=== PATIENT | female | born 1935 | race Caucasian/White ===

== ENCOUNTER 2016-12-23 08:10 | Outpatient (CLI) | payer MEDICARE, OTHER | END 2016-12-23 08:11 | disposition home or self-care (01) | LOC: LAB.F 08:10 | PROVIDERS: ATTEND Family Medicine | DX: E03.9 Hypothyroidism, unspecified (principal) | CPT/HCPCS: 36415; 84443 ==

== ENCOUNTER 2017-11-12 18:33 | Outpatient (CLI) | payer MEDICARE, OTHER ==
[2017-11-13] MEDS ORDERED: LORazepam 2 MG/ML VIAL ONE (09:24)
== END 2017-11-12 18:34 | disposition critical access hospital (66) ==
LOC: EMS 18:33
PROVIDERS: ATTEND Surgery
DX: S01.01XA Laceration without foreign body of scalp, initial encounter (principal); M25.551 Pain in right hip; W18.30XA Fall on same level, unspecified, initial encounter; Y92.008 Other place in unspecified non-institutional (private) residence as the place of occurrence of the external cause
CPT/HCPCS: A0425; A0427

== ENCOUNTER 2017-11-12 19:20 | Inpatient (IN) | payer MEDICARE, OTHER ==
[2017-11-12] MEDS ORDERED: MORPHINE 2 MG/ML SYRINGE IVP STA (19:52)
[2017-11-12 20:10] LABS: BASOPHILS # (AUTO) 0.1 10^3/uL (0.0-0.1); EOSINOPHILS # (AUTO) 0.1 10^3/uL (0.0-0.7); EOSINOPHILS % (AUTO) 1.5 %; HGB - HEMOGLOBIN 14.7 g/dL (12.0-16.0); LYMPHOCYTES # (AUTO) 1.1 10^3/uL (1.5-3.5); LYMPHOCYTES % (AUTO) 12.7 %; MEAN CORPUSCULAR HEMOGLOBIN 27.9 pg (27.0-31.0); MEAN CORPUSCULAR HGB CONC 32.5 g/dL (32.0-36.0); MEAN CORPUSCULAR VOLUME 85.7 fL (81.0-99.0); MEAN PLATELET VOLUME 8.3 fL (7.9-10.8); MONOCYTES # (AUTO) 0.6 10^3/uL (0.0-1.0); MONOCYTES % (AUTO) 7.7 %; NEUTROPHILS # (AUTO) 6.5 10^3/uL (1.5-6.6); NEUTROPHILS % (AUTO) 77.1 %; PLT - PLATELET COUNT 249 10^3/uL (130-450); RED BLOOD COUNT 5.26 10^6/uL (4.20-5.40); RED CELL DISTRIBUTION WIDTH 14.2 % (12.0-15.0); WHITE BLOOD COUNT 8.4 x10^3/uL (4.8-10.8)
[2017-11-12 20:17] LABS: PT - PROTHROMBIN TIME 11.8 secs (9.9-12.6)
[2017-11-12 20:24] LABS: ALBUMIN 4.3 g/dL (3.2-5.5); ALBUMIN/GLOBULIN RATIO 1.6 (1.0-2.2); BILIRUBIN,TOTAL 0.8 mg/dL (0.2-1.0); CALCIUM 8.6 mg/dL (8.5-10.3); CREATININE 0.6 mg/dL (0.4-1.0)
--- NOTE | 2017-11-12 20:25 | ED Physician Documentation ---
PD HPI Fall - Stated complaint Stated Complaint: RT HIP PAIN - Chief complaint Chief Complaint: Ext Problem - History obtained from History obtained from: Patient, EMS - History of Present Illness Mechanism of injury: Tripped Fall distance: Standing position Injury(ies) location: Head, Right Lower Extremity (hip and ankle) Pain level max: 7 Pain level now: 5 Quality of pain: Pain, Aching, Dull Associated symptoms: No: LOC, AMS, Amnesia, Seizures, Ear drainage, Nasal drainage, Neck pain, Weakness, Paresthesias, Dyspnea, Nausea / vomiting, Hematemesis, Abdominal distension Symptoms improve with: Rest Worsens with: Movement, Palpation Contributing factors: No: Anticoagulated, Intoxicated Similar symptoms before: Has not had sx before Recently seen: Not recently seen Review of Systems Ten Systems: 10 systems reviewed and negative Constitutional: denies: Fever, Chills Ears: denies: Ear pain Nose: denies: Rhinorrhea / runny nose, Congestion Throat: denies: Sore throat Cardiac: denies: Chest pain / pressure Respiratory: denies: Cough GI: denies: Abdominal Pain, Nausea, Vomiting, Diarrhea Skin: denies: Rash Musculoskeletal: denies: Neck pain, Back pain Neurologic: denies: Focal weakness, Numbness, Confused, Altered mental status, LOC PD PAST MEDICAL HISTORY - Past Medical History Cardiovascular: Hypertension Respiratory: None Endocrine/Autoimmune: HyPOthyroidism HEENT: Dental implants Musculoskeletal: Osteoarthritis, Osteoporosis, Osteopenia Derm: None - 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 Surgical 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 - Present Medications Home Medications: Ambulatory Orders Medication Instructions Recorded Confirmed Calcium & Magnesium Carbonate 1 tab PO DAILY 10/26/13 05/06/17 [Antacid Gelatin Caplet] Cholecalciferol (Vitamin D3) 1 tab PO DAILY 10/26/13 05/06/17 [Vitamin D-3] Levothyroxine [Synthroid] 0.1 mg PO DAILY 10/26/13 05/06/17 Losartan [Cozaar] 1 tab PO DAILY 10/26/13 05/06/17 Nebo-3 Fatty Acids/Fish Oil [Fish 1 tab PO DAILY 10/26/13 05/06/17 Oil 1,000 mg Capsule] Red Yeast Rice 1 tab PO DAILY 10/26/13 05/06/17 Vitamin B Complex Vit C No.4 1 tab ORAL DAILY 03/15/14 05/06/17 [Super B Complex] Lactobacillus Acidophilus 1 each PO DAILY 09/13/14 05/06/17 [Probiotic] Turmeric Root Extract [Turmeric] 1 tab PO DAILY 05/06/17 05/06/17 - Allergies Allergies/Adverse Reactions: Allergies Allergy/AdvReac Type Severity Reaction Status Date / Time Sulfa (Sulfonamide Allergy Edema Verified 11/12/17 20:00 Antibiotics) thimerosal Allergy Edema Verified 11/12/17 20:00 - Social History Does the pt smoke?: No Smoking Status: Never smoker Does the pt drink ETOH?: No Does the pt have substance abuse?: No - Immunizations Immunizations are current?: Yes PD ED PE NORMAL - Vitals Vital signs reviewed: Yes - General General: Alert and oriented X 3, No acute distress - HEENT HEENT: PERRL, Moist mucous membranes, Other (abrasion to crown of head) - Neck Neck: Supple, no meningeal sign, Other (mild C-spine TTP.) - Cardiac Cardiac: RRR, Strong equal pulses - Respiratory Respiratory: No respiratory distress, Clear bilaterally - Abdomen Abdomen: Soft, Non tender, Non distended - Back Back: No spinal TTP - Derm Derm: Warm and dry - Extremities Extremities: Other (TTP over the R hip. also diffusely tender about the R ankle. Mild swelling. NVI. o/w normal extremity exam of B LE and B UE) - Neuro Neuro: Alert and oriented X 3, client services director 2-12 intact, No motor deficit, No sensory deficit, Normal speech - Psych Psych: Normal mood, Normal affect Results - Vitals Vitals: Vital Signs - 24 hr 11/12/17 19:23 Temperature 36.8 C Heart Rate 52 L Respiratory 18 Rate Blood Pressure 150/99 H O2 Saturation 95 Oxygen O2 Source Room air - Labs Labs: Laboratory Tests 11/12/17 11/12/17 11/12/17 19:50 19:50 19:50 WBC 8.4 RBC 5.26 Hgb 14.7 Hct 45.0 MCV 85.7 MCH 27.9 MCHC 32.5 RDW 14.2 Plt Count 249 MPV 8.3 Neut # 6.5 Lymph # 1.1 L [place] # 0.6 Eos # 0.1 Baso # 0.1 Absolute Nucleated RBC 0.00 Nucleated RBC % 0.0 PT 11.8 INR 1.0 Sodium Potassium Chloride Carbon Dioxide Anion Gap BUN Creatinine Estimated GFR (MDRD) Glucose Calcium Total Bilirubin AST ALT Alkaline Phosphatase Troponin I Total Protein Albumin Globulin Albumin/Globulin Ratio Lipase Blood Type O POSITIVE Antibody Screen NEGATIVE 11/12/17 11/12/17 19:50 19:50 WBC RBC Hgb Hct MCV MCH MCHC RDW Plt Count MPV Neut # Lymph # [place] # Eos # Baso # Absolute Nucleated RBC Nucleated RBC % PT INR Sodium 136 Potassium 3.7 Chloride 102 Carbon Dioxide 26 Anion Gap 8.0 BUN 15 Creatinine 0.6 Estimated GFR (MDRD) 96 Glucose 103 H Calcium 8.6 Total Bilirubin 0.8 AST 26 ALT 20 Alkaline Phosphatase 60 Troponin I < 0.04 Total Protein 7.0 Albumin 4.3 Globulin 2.7 Albumin/Globulin Ratio 1.6 Lipase 29 Blood Type Antibody Screen - Rads (name of study) head CT Radiology: Prelim report reviewed, EMP read contemporaneously, See rad report ( Generalized age-related cortical atrophic changes without evidence of acute intracranial abnormality. 2. Moderate air-fluid level in the right maxillary sinus along with mild mucosal thickening. Increased density in the fluid, could be proteinaceous or blood. Acute on chronic right maxillary sinusitis to be present. 3. Right nasal alar bone fracture, mildly depressed, age- indeterminate. ) c-spine CT Radiology: Prelim report reviewed, EMP read contemporaneously, See rad report ( No evidence for acute fracture. 2. Degenerative changes as above. 3. Left upper lobe medial opacification measuring 0.9 x 1.5 cm, could represent a pulmonary nodule versus scarring versus infiltrate, not completely imaged. Further workup/ follow-up recommended. A dedicated chest CT could be obtained to further evaluate. Mild interlobular septal thickening in the bilateral lung apices, could represent mild pulmonary edema. ) R hip xray Radiology: Prelim report reviewed, EMP read contemporaneously, See rad report ( Mildly displaced and angulated intertrochanteric right femur fracture. ) R ankle xray Radiology: Prelim report reviewed, EMP read contemporaneously, See rad report ( No acute osseus abnormality. ) cxr Radiology: Prelim report reviewed, EMP read contemporaneously, See rad report ( Normal single-view chest. ) PD MEDICAL DECISION MAKING - ED course Complexity details: reviewed results, re-evaluated patient, considered differential, d/w patient, d/w executive consultant ED course: Patient is an 82-year-old female presents to the emergency department after a fall today. There is an abrasion to the crown of the head, there is no laceration. Wounds were cleansed and bandaged. She is found to have a right intertrochanteric hip fracture. Pain well controlled. Discussed the case with Dr. Fermin, orthopedics who will plan to take her to the operating room tomorrow. Also discussed with Dr. Means, hospitalist who accepts. This document was made in part using voice recognition software. While efforts are made to proofread this document, sound alike and grammatical errors may occur. Departure - Departure Disposition: [facility] DC/Xfer Clinical Impression: Intertrochanteric fracture of right hip Qualifiers: Encounter type: initial encounter Fracture type: closed Fracture alignment: displaced Qualified Code(s): S72.141A - Displaced intertrochanteric fracture of right femur, initial encounter for closed fracture Head injury Qualifiers: Encounter type: initial encounter Qualified Code(s): S09.90XA - Unspecified injury of head, initial encounter Abrasion head Qualifiers: Encounter type: initial encounter Qualified Code(s): S00.91XA - Abrasion of unspecified part of head, initial encounter Condition: Stable Discharge Date/Time: 11/12/17 22:14
[2017-11-12] MEDS ORDERED: MORPHINE 10 MG/ML VIAL IVP STA (20:34)
--- NOTE | 2017-11-12 20:42 | XRAY Preliminary Report ---
Exam: XR CHEST 1 VIEW X-RAY IMPRESSION: Normal single view chest. [facility] SITE ID: [id number]
--- NOTE | 2017-11-12 21:03 | XRAY Report ---
EXAM: CHEST RADIOGRAPHY EXAM DATE: 11/12/2017 08:33 PM. CLINICAL HISTORY: Fall, head injury, hip injury. COMPARISON: None. TECHNIQUE: 1 view. FINDINGS: Lungs/Pleura: No focal opacities evident. No pleural effusion. No pneumothorax. Mediastinum: Within exam limitations, the cardiomediastinal contour is normal. Other: None. IMPRESSION: Normal single-view chest. [facility] Referring Provider Line: [phone] SITE ID: [id number]
[2017-11-12] MEDS ORDERED: SODIUM CHLORIDE FLUSH 0.9% 10 ML SYRINGE IVP PRN (21:17)
[2017-11-12] MEDS ORDERED: oxyCODONE 5 MG TABLET PO PRN ×2 (21:17)
[2017-11-12] MEDS ORDERED: ACETAMINOPHEN 325 MG TABLET PO PRN (21:17)
[2017-11-12] MEDS ORDERED: ONDANSETRON 4 MG/2 ML VIAL IVP PRN (21:17)
[2017-11-12] MEDS ORDERED: PROCHLORPERAZINE 10 MG/2 ML VIAL IVP PRN (21:17)
--- NOTE | 2017-11-12 21:19 | XRAY Preliminary Report ---
Exam: XR ANKLE 3 VIEW RT IMPRESSION: No acute osseus abnormality. [facility] SITE ID: [id number]
--- NOTE | 2017-11-12 21:19 | XRAY Report ---
EXAM: RIGHT ANKLE RADIOGRAPHY EXAM DATE: 11/12/2017 09:09 PM. CLINICAL HISTORY: Fall, r ankle pain. COMPARISON: None. TECHNIQUE: 3 views. FINDINGS: Bones: No fracture or bone lesion. Joints: Normal. No effusion. No subluxations. The ankle mortise is normally aligned. Soft Tissues: Mild soft tissue swelling. IMPRESSION: No acute osseus abnormality. [facility] Referring Provider Line: [phone] SITE ID: [id number]
--- NOTE | 2017-11-12 21:21 | XRAY Report ---
EXAM: RIGHT HIP AND PELVIS RADIOGRAPHY EXAM DATE: 11/12/2017 09:10 PM. HISTORY: Fall, head inj, hip inj. COMPARISONS: None. TECHNIQUE: 1 view of the pelvis and 1 view of the hip. FINDINGS: Bones: Intertrochanteric right proximal femur fracture with mild displacement of the lesser trochante r and mild varus angulation. Joints: The bilateral hip, pubis symphysis, and sacroiliac joints are preserved. Soft Tissues: Mild soft tissue swelling. IMPRESSION: Mildly displaced and angulated intertrochanteric right femur fracture. [facility] Referring Provider Line: [phone] SITE ID: [id number]
--- NOTE | 2017-11-12 21:21 | XRAY Preliminary Report ---
Exam: XR HIP W/PELVIS 2-3V RT IMPRESSION: Mildly displaced and angulated intertrochanteric right femur fracture. [facility] SITE ID: [id number]
--- NOTE | 2017-11-12 21:40 | PROVIDER PROGRESS NOTE ---
Subjective - Prog Note Date Prog Note Date: 11/12/17 Prog Note Time: 21:38 - Subjective Pt reports feeling: Worse (Patient had a GLF today, sustaining a closed right IT hip fracture. No LOC or other injuries. No prior fracture) Objective - Vital Signs/Intake & Output Vital Signs: Vital Signs x48h Temp Pulse Resp BP Pulse Ox 11/12/17 21:35 59 L 17 128/63 96 11/12/17 19:23 36.8 C 52 L 18 150/99 H 95 - Lab Results Fish Bones: 11/12/17 19:50 11/12/17 19:50 Other Labs: Lab Results x24hrs 11/12/17 11/12/17 11/12/17 Range/Units 19:50 19:50 19:50 WBC (4.8-10.8) x10^3/uL RBC (4.20-5.40) 10^6/uL Hgb (12.0-16.0) g/dL Hct (37.0-47.0) % MCV (81.0-99.0) fL MCH (27.0-31.0) pg MCHC (32.0-36.0) g/dL RDW (12.0-15.0) % Plt Count (130-450) 10^3/uL MPV (7.9-10.8) fL Neut # (1.5-6.6) 10^3/uL Lymph # (1.5-3.5) 10^3/uL [place] # (0.0-1.0) 10^3/uL Eos # (0.0-0.7) 10^3/uL Baso # (0.0-0.1) 10^3/uL Absolute Nucleated RBC x10^3/uL Nucleated RBC % /100WBC PT 11.8 (9.9-12.6) secs INR 1.0 (0.8-1.2) Sodium 136 (135-145) mmol/L Potassium 3.7 (3.5-5.0) mmol/L Chloride 102 (101-111) mmol/L Carbon Dioxide 26 (21-32) mmol/L Anion Gap 8.0 (6-13) BUN 15 (6-20) mg/dL Creatinine 0.6 (0.4-1.0) mg/dL Estimated GFR (MDRD) 96 (>89) Glucose 103 H (70-100) mg/dL Calcium 8.6 (8.5-10.3) mg/dL Total Bilirubin 0.8 (0.2-1.0) mg/dL AST 26 (10-42) IU/L ALT 20 (10-60) IU/L Alkaline Phosphatase 60 (42-121) IU/L Troponin I < 0.04 (<0.49) ng/mL Total Protein 7.0 (6.7-8.2) g/dL Albumin 4.3 (3.2-5.5) g/dL Globulin 2.7 (2.1-4.2) g/dL Albumin/Globulin Ratio 1.6 (1.0-2.2) Lipase 29 (22-51) U/L Blood Type Antibody Screen 11/12/17 11/12/17 Range/Units 19:50 19:50 WBC 8.4 (4.8-10.8) x10^3/uL RBC 5.26 (4.20-5.40) 10^6/uL Hgb 14.7 (12.0-16.0) g/dL Hct 45.0 (37.0-47.0) % MCV 85.7 (81.0-99.0) fL MCH 27.9 (27.0-31.0) pg MCHC 32.5 (32.0-36.0) g/dL RDW 14.2 (12.0-15.0) % Plt Count 249 (130-450) 10^3/uL MPV 8.3 (7.9-10.8) fL Neut # 6.5 (1.5-6.6) 10^3/uL Lymph # 1.1 L (1.5-3.5) 10^3/uL [place] # 0.6 (0.0-1.0) 10^3/uL Eos # 0.1 (0.0-0.7) 10^3/uL Baso # 0.1 (0.0-0.1) 10^3/uL Absolute Nucleated RBC 0.00 x10^3/uL Nucleated RBC % 0.0 /100WBC PT (9.9-12.6) secs INR (0.8-1.2) Sodium (135-145) mmol/L Potassium (3.5-5.0) mmol/L Chloride (101-111) mmol/L Carbon Dioxide (21-32) mmol/L Anion Gap (6-13) BUN (6-20) mg/dL Creatinine (0.4-1.0) mg/dL Estimated GFR (MDRD) (>89) Glucose (70-100) mg/dL Calcium (8.5-10.3) mg/dL Total Bilirubin (0.2-1.0) mg/dL AST (10-42) IU/L ALT (10-60) IU/L Alkaline Phosphatase (42-121) IU/L Troponin I (<0.49) ng/mL Total Protein (6.7-8.2) g/dL Albumin (3.2-5.5) g/dL Globulin (2.1-4.2) g/dL Albumin/Globulin Ratio (1.0-2.2) Lipase (22-51) U/L Blood Type O POSITIVE Antibody Screen NEGATIVE - Diagnostic Imaging Diagnostic Imaging Comments: XR show a IT hip fracture - mildly displaced - Other Results/Comments Other Results/Comments: EXAM: Right hip - painful hip motion. Leg short and ext rotated. Moves toes ok. sensation intact. Good cap filling Assessment/Plan - Problem List (1) Intertrochanteric fracture of right hip Impression: Closed injury PLAN: To OR in AM for surgical fixation of right hip fracture with short interTan nailing of hip fracture. Risks and benefit of surgery explained and all questions answered. Patient wishes to proceed with surgery. Leg marked. Consent signed. Qualifiers: Encounter type: initial encounter Fracture type: closed Fracture alignment: displaced Qualified Code(s): S72.141A - Displaced intertrochanteric fracture of right femur, initial encounter for closed fracture
--- NOTE | 2017-11-12 21:54 | HISTORY & PHYSICAL EXAMINATION ---
Chief Complaint - Chief Complaint Chief Complaint: Right hip pain History of Present Illness - Admitted From Admitted From:: Emergency Department - History Obtained From Records Reviewed: Yes History obtained from: Patient Exam Limitations: Patient unable to move her right leg secondary to pain - History of Present Illness HPI Comment/Other: Patient is an 82-year-old female with a past medical history significant for hypertension, hypothyroidism and history of cervical cancer status post hysterectomy 12 years ago and recurrence of disease 6 years ago status post radiation and chemotherapy now cancer free who presents to the emergency department with a chief complaint of right hip pain. The patient states that she was in her normal state of health when this evening she was in the kitchen and had slippers on, she states she thinks she lost her balance and then fell to the floor on her right hip. She states that she did not lose consciousness but believes she may have hit her head on the edge of the counter on the way down. She states that after she fell she had severe pain in her right hip and could not get up. She states that she managed to scoot along the floor and get to her cell phone and called 911. She states that prior to this episode she was not having any fevers or chills, cough, shortness of breath, chest pain, palpitations, abdominal pain, nausea, vomiting, diarrhea, constipation, urinary urgency, urinary frequency, dysuria, generalized weakness, joint pain, muscle aches, back pain, neck stiffness, dizziness, vertigo, blurred vision, runny nose, sore throat, nasal congestion, difficulty swallowing, localized weakness, changes in her sensation, recent unintentional weight loss, night sweats, changes in her appetite or any new rashes. On presentation to the emergency department the patient was afebrile, she was mildly bradycardic with a heart rate of 52 and mildly hypertensive but was saturating well on room air and not in any respiratory distress. The patient underwent routine lab work which was all within normal limits. The patient's troponin was less than 0.04. The patient's urine analysis was negative. The patient also underwent a CT of her cervical spine given her fall and this showed no evidence of acute fracture but did show degenerative changes in the cervical spine. The patient also underwent an x-ray of her chest which was normal. The patient underwent a CT of her head which showed generalized age- related cortical atrophic changes without evidence of acute intracranial abnormality as well as moderate air-fluid level in the right maxillary sinus along with mild mucosal thickening consistent with acute on chronic right maxillary sinusitis. She was also found to have a right nasal alar bone fracture. The patient's x-ray of her right hip showed a mildly displaced and angulated intertrochanteric right femur fracture. The patient also underwent an x-ray of her right ankle which showed no acute osseous abnormality. Given the finding of a right femur fracture the emergency room physician contacted the orthopedic surgeon house calls nurse practitioner Dr. Saul Fermin and he asked that the patient be admitted by the hospitalist service and that he would follow her in the morning. He is planning for her to go to the OR early in the morning. 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 Social History Notes: The patient lives in [place], [place] with her . She is her 's primary caregiver as her has end-stage Parkinson's and is now on hospice. She is originally from [place], [place] and moved to [facility] about 25 years ago. 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 She has been to her for 64 years and they have 2 children together. She has never smoked, she does drink a glass of wine with dinner but denies any illicit drug use. - POLST Patient has POLST: Yes POLST Status: DNR Meds/Allgy - Home Medications Home Medications: Ambulatory Orders Medication Instructions Recorded Confirmed Calcium & Magnesium Carbonate 1 tab PO DAILY 10/26/13 05/06/17 [Antacid Gelatin Caplet] Cholecalciferol (Vitamin D3) 1 tab PO DAILY 10/26/13 05/06/17 [Vitamin D-3] Levothyroxine [Synthroid] 0.1 mg PO DAILY 10/26/13 05/06/17 Losartan [Cozaar] 1 tab PO DAILY 10/26/13 05/06/17 [place]-3 Fatty Acids/Fish Oil [Fish 1 tab PO DAILY 10/26/13 05/06/17 Oil 1,000 mg Capsule] Red Yeast Rice 1 tab PO DAILY 10/26/13 05/06/17 Vitamin B Complex Vit C No.4 1 tab ORAL DAILY 03/15/14 05/06/17 [Super B Complex] Lactobacillus Acidophilus 1 each PO DAILY 09/13/14 05/06/17 [Probiotic] Turmeric Root Extract [Turmeric] 1 tab PO DAILY 05/06/17 05/06/17 - Allergies Allergies/Adverse Reactions: Allergies Allergy/AdvReac Type Severity Reaction Status Date / Time Sulfa (Sulfonamide Allergy Edema Verified 11/12/17 20:00 Antibiotics) thimerosal Allergy Edema Verified 11/12/17 20:00 Review of Systems - Other Findings Other Findings: A comprehensive review of systems was performed the pertinent positives and negatives are stated above in the HPI and the remainder of the review of systems is negative. Exam - Vital Signs Reviewed Vital Signs: Yes Vital Signs: Vital Signs x48h Pulse Resp BP Pulse Ox 11/12/17 21:35 59 L 17 128/63 96 - Physical Exam General Appearance: positive: Alert, Mild distress (Pain secondary to right hip fracture) Eyes Bilateral: positive: Normal inspection, PERRL, EOMI, No lid inflammation, Conjunctivae nml, No scleral icterus ENT: positive: ENT inspection nml, Pharynx nml, No signs of dehydration. negative: Purulent nasal drainage, Pharyngeal erythema, Oral lesions Neck: positive: Nml inspection, Thyroid nml, No JVD, Trachea midline. negative : Thyromegaly, Lymphadenopathy (R), Lymphadenopathy (L), Carotid bruit, Tracheal deviation Respiratory: positive: Chest non-tender, No respiratory distress, Breath sounds nml. negative: Wheezes, Rales, Rhonchi Cardiovascular: positive: Regular rate & rhythm, No murmur, No gallop Peripheral Pulses: positive: 2+ Back: positive: Nml inspection. negative: CVA tenderness (R), CVA tenderness (L ) Skin: positive: Color nml, No rash, Warm, Laceration (cm) (Patient had a mild laceration small laceration on the back of the head). negative: Cyanosis, Diaphoresis, Pallor Extremities: positive: Other (Patient's right lower extremity is externally rotated and shortened. She has very limited range of motion around the right hip secondary to severe pain from hip fracture) Neurologic/Psychiatric: positive: Oriented x3, CN's nml (2-12), Motor nml, Sensation nml, Mood/affect nml Conclusion/Plan - Problem List (1) Intertrochanteric fracture of right hip Conclusion/Plan: Patient had a mechanical fall at home and has suffered a right mildly displaced and angulated intertrochanteric right femur fracture. Patient will need to be taken to the OR by orthopedic surgery for repair of this fracture. The patient does not have any ongoing chest pain or shortness of air. She has no history of renal failure and only has history of hypertension and hypothyroidism. The patient previously did have cervical cancer but this is in remission. According to the revised cardiac risk index for preoperative risk the patient's risk of major cardiac event is 0.4%. Plan: N.p.o. after midnight Orthopedic surgery consult for repair of the right intertrochanteric fracture PT consultation Social work consultation for likely placement as well as aid with patient's for whom she is the primary caregiver Optimize patient for surgery Start DVT prophylaxis once surgery is complete IV morphine for pain control Qualifiers: Encounter type: initial encounter Fracture type: closed Fracture alignment: displaced Qualified Code(s): S72.141A - Displaced intertrochanteric fracture of right femur, initial encounter for closed fracture (2) Hypertension Conclusion/Plan: Patient has history of hypertension. On presentation the patient's blood pressure is slightly elevated likely secondary to pain. The patient does use losartan at home for hypertension. Patient will be continued on her home dose of losartan and blood pressure will be monitored. Patient will also be treated for her pain. Qualifiers: Hypertension type: essential hypertension Qualified Code(s): I10 - Essential (primary) hypertension (3) Hypothyroidism Conclusion/Plan: Patient has a history of hypothyroidism and is on Synthroid at home. We will continue the patient on her home dose of Synthroid and check a TSH in the morning. Qualifiers: Hypothyroidism type: unspecified Qualified Code(s): E03.9 - Hypothyroidism , unspecified - Lab Results Lab results reviewed: Yes Fish Bones: 11/12/17 19:50 11/12/17 19:50 Other Lab Results: Laboratory Results WBC 8.4 x10^3/uL (4.8-10.8) 11/12/17 19:50 RBC 5.26 10^6/uL (4.20-5.40) 11/12/17 19:50 Hgb 14.7 g/dL (12.0-16.0) 11/12/17 19:50 Hct 45.0 % (37.0-47.0) 11/12/17 19:50 MCV 85.7 fL (81.0-99.0) 11/12/17 19:50 MCH 27.9 pg (27.0-31.0) 11/12/17 19:50 MCHC 32.5 g/dL (32.0-36.0) 11/12/17 19:50 RDW 14.2 % (12.0-15.0) 11/12/17 19:50 Plt Count 249 10^3/uL (130-450) 11/12/17 19:50 MPV 8.3 fL (7.9-10.8) 11/12/17 19:50 Neut # 6.5 10^3/uL (1.5-6.6) 11/12/17 19:50 Lymph # 1.1 10^3/uL (1.5-3.5) L 11/12/17 19:50 [place] # 0.6 10^3/uL (0.0-1.0) 11/12/17 19:50 Eos # 0.1 10^3/uL (0.0-0.7) 11/12/17 19:50 Baso # 0.1 10^3/uL (0.0-0.1) 11/12/17 19:50 Absolute Nucleated RBC 0.00 x10^3/uL 11/12/17 19:50 Nucleated RBC % 0.0 /100WBC 11/12/17 19:50 PT 11.8 secs (9.9-12.6) 11/12/17 19:50 INR 1.0 (0.8-1.2) 11/12/17 19:50 Sodium 136 mmol/L (135-145) 11/12/17 19:50 Potassium 3.7 mmol/L (3.5-5.0) 11/12/17 19:50 Chloride 102 mmol/L (101-111) 11/12/17 19:50 Carbon Dioxide 26 mmol/L (21-32) 11/12/17 19:50 Anion Gap 8.0 (6-13) 11/12/17 19:50 BUN 15 mg/dL (6-20) 11/12/17 19:50 Creatinine 0.6 mg/dL (0.4-1.0) 11/12/17 19:50 Estimated GFR (MDRD) 96 (>89) 11/12/17 19:50 Glucose 103 mg/dL (70-100) H 11/12/17 19:50 Calcium 8.6 mg/dL (8.5-10.3) 11/12/17 19:50 Total Bilirubin 0.8 mg/dL (0.2-1.0) 11/12/17 19:50 AST 26 IU/L (10-42) 11/12/17 19:50 ALT 20 IU/L (10-60) 11/12/17 19:50 Alkaline Phosphatase 60 IU/L (42-121) 11/12/17 19:50 Troponin I < 0.04 ng/mL (<0.49) 11/12/17 19:50 Total Protein 7.0 g/dL (6.7-8.2) 11/12/17 19:50 Albumin 4.3 g/dL (3.2-5.5) 11/12/17 19:50 Globulin 2.7 g/dL (2.1-4.2) 11/12/17 19:50 Albumin/Globulin Ratio 1.6 (1.0-2.2) 11/12/17 19:50 Lipase 29 U/L (22-51) 11/12/17 19:50 Urine Color YELLOW 11/12/17 22:07 Urine Clarity CLEAR (CLEAR) 11/12/17 22:07 Urine pH 7.0 PH (5.0-7.5) 11/12/17 22:07 Ur Specific [place] 1.015 (1.002-1.030) 11/12/17 22:07 Urine Protein NEGATIVE mg/dL (NEGATIVE) 11/12/17 22:07 Urine Glucose (UA) NEGATIVE mg/dL (NEGATIVE) 11/12/17 22:07 Urine Ketones 15 mg/dL (NEGATIVE) H 11/12/17 22:07 Urine Occult Blood NEGATIVE (NEGATIVE) 11/12/17 22:07 Urine Nitrite NEGATIVE (NEGATIVE) 11/12/17 22:07 Urine Bilirubin NEGATIVE (NEGATIVE) 11/12/17 22:07 Urine Urobilinogen 0.2 (NORMAL) E.U./dL (NORMAL) 11/12/17 22:07 Ur Leukocyte Esterase NEGATIVE (NEGATIVE) 11/12/17 22:07 Ur Microscopic Review NOT INDICATED 11/12/17 22:07 Urine Culture Comments NOT INDICATED 11/12/17 22:07 Blood Type O POSITIVE 11/12/17 19:50 Antibody Screen NEGATIVE 11/12/17 19:50 - Diagnostic Imaging Results Diagnostic Imaging Results: positive: Final report reviewed Diagnostic Imaging Results Comments: CT cervical spine Impression: 1. No evidence of acute fracture 2. Degenerative changes 3. Left upper lobe medial opacification measuring 0.9 x 1.5 cm, could represent a pulmonary nodule versus scarring versus infiltrate, not completely imaged. Further workup/follow-up recommended. A dedicated chest CT could be obtained to further evaluate. Mild interlobular septal thickening in the bilateral lung apices, could represent mild pulmonary edema Chest x-ray Impression: Normal single view chest CT head Impression: 1. Generalized age-related cortical atrophic changes without evidence of acute intracranial abnormality. 2. Moderate air-fluid level in the right maxillary sinus along with mild mucosal thickening. Increased density in the fluid, could be proteinaceous or blood. Acute on chronic right maxillary sinusitis to be present. 3. Right nasal alar bone fracture, mildly depressed, age indeterminate Hip/pelvic x-ray right Impression: Mildly displaced and angulated intertrochanteric right femur fracture Ankle x-ray right Impression: No acute osseous abnormality. - EKG Results EKG Interpreted Independently: Yes EKG Findings: No ST elevations or ischemic changes noted. Core Measures - Anticipated LOS I expect patient to be DC'd or transferred within 96 hours.: Yes - DVT/VTE - Prophylaxis VTE/DVT Prophylaxis med ordered at admit?: Yes
--- NOTE | 2017-11-12 21:58 | CT Report ---
EXAM: CT HEAD EXAM DATE: 11/12/2017 09:40 PM. CLINICAL HISTORY: Fall, head injury, hip inj. COMPARISON: None. TECHNIQUE: Multiaxial CT images were obtained from the foramen magnum to the vertex. Reformats: Coron al. IV contrast: None. In accordance with CT protocol optimization, one or more of the following dose reduction techniques w ere utilized for this exam: automated exposure control, adjustment of mA and/or KV based on patient s ize, or use of iterative reconstructive technique. FINDINGS: Parenchyma: No intraparenchymal hemorrhage. No evidence of mass, midline shift, or CT findings of acu te infarction. Chacko-white differentiation is distinct. Mild bilateral chronic microangiopathic white matter changes are evident. Extraaxial Spaces: Normal for age. No subdural or epidural collections identified. Ventricles: The ventricles and cortical sulci are enlarged, consistent with age-related tissue loss. Sinuses and orbits: Orbits appear unremarkable. Moderate air-fluid level in the right maxillary sinus along with mild mucosal thickening. Increased density in the fluid, could be proteinaceous or blood. Acute on chronic right maxillary sinusitis to be present. Bones: Right nasal alar bone fracture, mildly depressed, age-indeterminate. No evidence for acute sku ll fracture. IMPRESSION: 1. Generalized age-related cortical atrophic changes without evidence of acute intracranial abnormali ty. 2. Moderate air-fluid level in the right maxillary sinus along with mild mucosal thickening. Increase d density in the fluid, could be proteinaceous or blood. Acute on chronic right maxillary sinusitis t o be present. 3. Right nasal alar bone fracture, mildly depressed, age-indeterminate. [facility] Referring Provider Line: [phone] SITE ID: [id number]
--- NOTE | 2017-11-12 22:04 | CT Preliminary Report ---
Exam: CT CERVICAL SPINE W/O IMPRESSION: 1. No evidence for acute fracture. 2. Degenerative changes as above. 3. Left upper lobe medial opacification measuring 0.9 x 1.5 cm, could represent a pulmonary nodule ve rsus scarring versus infiltrate, not completely imaged. Further workup/follow-up recommended. A dedic ated chest CT could be obtained to further evaluate. Mild interlobular septal thickening in the bilat eral lung apices, could represent mild pulmonary edema. [facility] SITE ID: [id number]
--- NOTE | 2017-11-12 22:08 | CT Report ---
EXAM: CT CERVICAL SPINE WITHOUT CONTRAST DATE: 11/12/2017 09:39 PM. HISTORY: Fall, head injury, hip injury. COMPARISONS: None. TECHNIQUE: Thin-section axial images were acquired of the cervical spine without contrast. Post-proce ssing: Coronal and sagittal reformats. Other: None. In accordance with CT protocol optimization, one or more of the following dose reduction techniques w ere utilized for this exam: automated exposure control, adjustment of mA and/or KV based on patient s ize, or use of iterative reconstructive technique. FINDINGS: Moderate to severe degenerative disk disease at C5 to C6 and C6 to C7. [id number] deg enerative disk disease in the rest of the cervical spine except for C2 to C3 where there is only mini mal degenerative disk disease. Marked atlantoaxial degenerative change. Large right C2 to C3 facet ar thropathy. Otherwise [id number] diffuse bilateral facet arthropathy. No evidence for acute fracture. No acute soft tissue finding seen. Left upper lobe medial opacification measuring 0.9 x 1.5 cm, could represent a pulmonary nodule versu s scarring versus infiltrate, not completely imaged. Further workup/follow-up recommended. A dedicate d chest CT could be obtained to further evaluate. Mild interlobular septal thickening in the bilatera l lung apices, could represent mild pulmonary edema. IMPRESSION: 1. No evidence for acute fracture. 2. Degenerative changes as above. 3. Left upper lobe medial opacification measuring 0.9 x 1.5 cm, could represent a pulmonary nodule ve rsus scarring versus infiltrate, not completely imaged. Further workup/follow-up recommended. A dedic ated chest CT could be obtained to further evaluate. Mild interlobular septal thickening in the bilat eral lung apices, could represent mild pulmonary edema. [facility] Referring Provider Line: [phone] SITE ID: [id number]
[2017-11-12 22:13] LABS: BILIRUBIN,URINE NEGATIVE (NEGATIVE); GLUCOSE, URINE (UA) NEGATIVE (NEGATIVE); KETONES,URINE (UA) 15 mg/dL (NEGATIVE); LEUKOCYTE ESTERASE, URINE NEGATIVE (NEGATIVE); NITRITE,URINE NEGATIVE (NEGATIVE); OCCULT BLOOD,URINE NEGATIVE (NEGATIVE); PROTEIN,URINE NEGATIVE (NEGATIVE); UROBILINOGEN,URINE 0.2 (NORMAL) E.U./dL (NORMAL)
[2017-11-12 22:14] LABS: CLARITY,URINE CLEAR (CLEAR)
[2017-11-12] MEDS: MORPHINE 2 MG/ML SYRINGE IVP PRN (22:29)
[2017-11-12] MEDS: SODIUM CHLORIDE 0.9% 1,000 ML IV SCH (22:45)
[2017-11-13] MEDS ORDERED: SODIUM CHLORIDE FLUSH 0.9% 10 ML SYRINGE IVP SCH (01:00)
[2017-11-13 06:26] LABS: BASOPHILS # (AUTO) 0.1 10^3/uL (0.0-0.1); BASOPHILS % (AUTO) 0.8 %; EOSINOPHILS # (AUTO) 0.1 10^3/uL (0.0-0.7); EOSINOPHILS % (AUTO) 0.8 %; HGB - HEMOGLOBIN 12.7 g/dL (12.0-16.0); LYMPHOCYTES # (AUTO) 1.4 10^3/uL (1.5-3.5); LYMPHOCYTES % (AUTO) 15.7 %; MEAN CORPUSCULAR HEMOGLOBIN 28.6 pg (27.0-31.0); MEAN CORPUSCULAR HGB CONC 33.3 g/dL (32.0-36.0); MEAN CORPUSCULAR VOLUME 85.9 fL (81.0-99.0); MEAN PLATELET VOLUME 8.1 fL (7.9-10.8); MONOCYTES # (AUTO) 1.2 10^3/uL (0.0-1.0); MONOCYTES % (AUTO) 12.9 %; NEUTROPHILS # (AUTO) 6.2 10^3/uL (1.5-6.6); NEUTROPHILS % (AUTO) 69.8 %; PLT - PLATELET COUNT 222 10^3/uL (130-450); RED BLOOD COUNT 4.44 10^6/uL (4.20-5.40); RED CELL DISTRIBUTION WIDTH 14.3 % (12.0-15.0); WHITE BLOOD COUNT 8.9 x10^3/uL (4.8-10.8)
[2017-11-13 06:38] LABS: INR 1.1 (0.8-1.2); PT - PROTHROMBIN TIME 12.4 secs (9.9-12.6)
[2017-11-13 06:42] LABS: ALBUMIN 3.5 g/dL (3.2-5.5); ALBUMIN/GLOBULIN RATIO 1.7 (1.0-2.2); BILIRUBIN,TOTAL 0.9 mg/dL (0.2-1.0); CALCIUM 7.9 mg/dL (8.5-10.3); CREATININE 0.7 mg/dL (0.4-1.0); MAGNESIUM 1.9 mg/dL (1.7-2.8); PHOSPHORUS 3.8 mg/dL (2.5-4.6); TOTAL PROTEIN 5.6 g/dL (6.7-8.2)
[2017-11-13] MEDS ORDERED: LEVOTHYROXINE 100 MCG TABLET PO SCH (07:00)
[2017-11-13] MEDS: MORPHINE 2 MG/ML SYRINGE IVP PRN (07:27)
[2017-11-13] MEDS: SODIUM CHLORIDE 0.9% 1,000 ML IV SCH ×3 (07:43→20:12)
[2017-11-13] MEDS ORDERED: ceFAZolin 2 GM/50 ML 2 GM/50 ML BAG IV SCH (08:00)
--- NOTE | 2017-11-13 08:01 | CONSULTATION NOTE ---
DATE OF SERVICE: 11/13/2017 Physician: Saul Fermin MD REFERRING PHYSICIAN: Dr. Lima of the Emergency Room Department. CHIEF COMPLAINT: "My right hip hurts." HISTORY OF PRESENT ILLNESS: The patient is an 82-year-old female who apparently had a fall at home last evening, injuring her right side. She noted immediate pain and deformity in the right lower extremity after her fall. There was no loss of consciousness or other injuries associated with this. No distal weakness and numbness noted. She was unable to stand or weight bear due to pain in her hip area. She was taken by ambulance to the Emergency Room here at [facility] where x-rays showed an intertrochanteric hip fracture of her right hip. She was subsequently admitted to the hospital for medical evaluation and stabilization prior to surgical fixation. SOCIAL HISTORY: She does live at home with her , but he has both Parkinson's and is recovering from his own hip fracture, and she has been his primary caregiver in the past. Their home is a 3-story home, though she does have the ability to stay downstairs in a bedroom. PHYSICAL EXAMINATION GENERAL: Examination shows that the patient is thin, woman, lying in the bed, in mild amount of distress. VITAL SIGNS: BP was 156/60, pulse of 90, respirations 16, temperature 36.5 degrees centigrade. HEENT: Normocephalic. PERRLA. EOMs full. Vision and hearing grossly intact and symmetrical. Nose and throat are clear. LUNGS: Clear. HEART: Regular rate and rhythm, S1 and S2 heard without murmurs, rubs or gallops. ABDOMEN: Soft, nontender, active bowel sounds. EXTREMITIES: The patient's right hip was somewhat tender on palpation laterally. Painful range of motion of the hip noted. The patient moves toes well on command. Sensation is intact throughout. Good capillary filling noted in the toes. NEUROLOGIC: The patient was alert and oriented x3. Sensory and motor examination grossly intact and symmetrical throughout. X-RAYS: Show an intertrochanteric right hip fracture present. ASSESSMENT 1. Closed right intertrochanteric hip fracture. 2. History of hypertension. 3. History of hypothyroidism. PLAN: The patient has been cleared by Medicine to proceed with surgical fixation of her right hip fracture. I have discussed with the patient treatment options. These include nonoperative versus surgical fixation of her hip fracture with a short Intertan nail. She is in favor of surgery. Risks and benefits of surgery were explained to her, including anesthesia risks, malunion, nonunion, infection, blood loss, nerve damage, deep venous thrombosis, etc. She appears to understand these risks. All her questions were answered. We planned on proceeding with surgery later this morning. Her leg has been marked. Consent signed. TD: 11/13/2017 07:49
[2017-11-13] MEDS ORDERED: BUPIVACAINE 0.25%-EPI 1:200000 PF 30 ML VIAL ONE (08:08)
[2017-11-13] MEDS ORDERED: PROPOFOL 200 MG/20 ML VIAL IVP ONE (08:35)
[2017-11-13] MEDS ORDERED: KETOROLAC 30 MG/ML VIAL IVP ONE (08:35)
[2017-11-13] MEDS ORDERED: ePHEDrine 50 MG/ML AMP IVP ONE (08:35)
[2017-11-13] MEDS ORDERED: DEXAMETHASONE 4 MG/ML VIAL IVP ONE (08:35)
[2017-11-13] MEDS ORDERED: LIDOCAINE-MPF 2% 5 ML VIAL IM ONE (08:35)
[2017-11-13] MEDS ORDERED: ONDANSETRON 4 MG/2 ML VIAL IVP ONE (08:35)
[2017-11-13] MEDS ORDERED: fentaNYL 100 MCG/2 ML VIAL IVP ONE (08:35)
[2017-11-13] MEDS ORDERED: ceFAZolin 1 GM VIAL IV ONE (08:35)
[2017-11-13] MEDS ORDERED: ACETAMINOPHEN 1,000 MG/100 ML 100 ML IV ONE (08:35)
[2017-11-13] MEDS ORDERED: SODIUM CHLORIDE 0.9% 1,000 ML IV ONE (08:37)
[2017-11-13] MEDS ORDERED: BUPIVACAINE 0.25%-EPI 1:200000 PF 30 ML VIAL SUBQ ONE ×2 (08:37)
[2017-11-13] MEDS ORDERED: PROCHLORPERAZINE 10 MG/2 ML VIAL IVP PRN (09:01)
[2017-11-13] MEDS ORDERED: DOCUSATE SODIUM 100 MG CAPSULE PO PRN (09:01)
[2017-11-13] MEDS ORDERED: SENNA 8.6 MG TABLET PO PRN (09:01)
[2017-11-13] MEDS ORDERED: ACETAMINOPHEN 325 MG TABLET PO PRN (09:01)
[2017-11-13] MEDS ORDERED: ACETAMINOPHEN 1,000 MG/100 ML 100 ML IV PRN (09:01)
[2017-11-13] MEDS ORDERED: ONDANSETRON 4 MG/2 ML VIAL IVP PRN (09:01)
[2017-11-13] MEDS: HYDROmorphone 1 MG/ML CARPUJECT ONE ×2 (09:10→09:15)
--- NOTE | 2017-11-13 09:13 | OPERATIVE REPORT ---
Operative Report - General Admit Date: 11/12/17 Procedure Date: 11/13/17 Planned Procedure: Closed reduction and short interTan nailing of right hip fracture Pre-Op Diagnosis: Closed right intertrochanteric hip fracture Procedure Performed: Closed reduction and short interTan nailing of right hip fracture Post Op Diagnosis: Same - Procedure Note Primary Surgeon: Carolyn Fermin Anesthesia Provider: Miguel Brown Anesthesia Technique: General ET tube IV Fluids (mL): 800 Estimated Blood Loss (mL): 75 Complications: None
[2017-11-13] MEDS ORDERED: LACTATED RINGERS 1,000 ML IV ONE (09:24)
[2017-11-13] MEDS ORDERED: HYDROmorphone 1 MG/ML CARPUJECT ONE (09:33)
--- NOTE | 2017-11-13 09:47 | XRAY Report ---
TWO VIEW RIGHT HIP: 11/13/2017 CLINICAL INDICATION: Fracture fixation. FINDINGS: Intraoperative frontal and lateral views of the right hip demonstrate dynamic compression screw and IM kemar fixation of the right intertrochanteric fracture. 24 seconds of fluoroscopy time was provided to Dr. Fermin; 3 spot images obtained. IMPRESSION: INTRAOPERATIVE IMAGING OF RIGHT HIP FRACTURE FIXATION. TD: 11/13/2017 09:12
[2017-11-13] MEDS ORDERED: LORazepam 2 MG/ML VIAL IVP ONE (10:00)
--- NOTE | 2017-11-13 10:01 | OPERATIVE REPORT ---
DATE OF SERVICE: 11/13/2017 Physician: Saul Fermin MD PREOPERATIVE DIAGNOSIS: Closed right intertrochanteric hip fracture. POSTOPERATIVE DIAGNOSIS: Closed right intertrochanteric hip fracture. PROCEDURE PERFORMED: Closed reduction and short Intertan nailing of right hip fracture. SURGEON: Saul Fermin MD ANESTHESIA: General. DESCRIPTION OF PROCEDURE: The patient was taken to the operating room on the morning of 11/13/2017, where she was placed under general anesthetic without any complications. She was then repositioned supine on the fracture table. Her left unfractured extremity was then flexed and widely abducted at the hip and held with a well leg melvin. The fractured right extremity was then placed in the axial traction with the leg internally rotated about 25 degrees. Fluoroscopic views of her right hip in both AP and lateral projection showed good reduction of her fracture while the leg was under traction and in disposition. This is both AP and lateral projection. We then prepped and draped the lateral aspect of her hip in the usual fashion for our procedure. Making a short oblique incision just proximal tip of the greater trochanter, we incised the skin and dissected down to the tip of the greater trochanter bluntly. This is where we placed a threaded-tip guidewire. Its position was confirmed fluoroscopically. Satisfied with this, we then drilled the guidepin under power down the proximal femoral shaft just past the level of the lesser trochanter. Again, the position of our guidepin in AP and lateral projections were confirmed with the C-arm fluoroscopy machine. Satisfied with this, we then reamed the proximal femur using our guidepin as our guide with the cannulated channel reamer down to the level of the lesser trochanter. This was then followed by the selected short Intertan nail: 10 mm x 18 cm x 125 degree angle nail. This was inserted with the insertion guide down to the proper level. This was confirmed with the fluoroscopic machine. We then proceeded to make a small skin incision where the oval pin sleeve was then inserted into the distal end of our insertion guide up and inserted to the lateral femoral cortex proximally. We then placed a threaded guidepin up through our guide through the proximal femur, femoral neck, and femoral head. Fluoroscopic view in AP and lateral projection confirmed satisfactory placement of our guidepin and proper depth to within a few millimeters of the subchondral bone. Satisfied with this, we then removed our pin sleeve and followed with our cannulated reamer. We had measured and determined that we would use a subtrochanteric hip lag screw: 11 mm x 11 mm in length. This selected hip screw was then placed onto our insertion apparatus. We then proceeded to insert this over the guidewire through the prepared femoral neck and femoral head. We obtained good purchase of our threaded portion of our hip lag screw as it settled into its final position within 3 mm of subchondral bone. Satisfied with the depth and position of our hip lag screw in both AP and lateral projection, we then removed the insertion screw guide from our hip lag screw and removed the oval pin sleeve. We then locked the set screw in the proximal end of our nail using a hinged screwdriver. We tightened the screw snugly and then backed it off 90 degrees. Next, we made small skin incisions that would allow us to put the silver and gold drill sleeves through the distal end of our insertion guide up along the lateral femoral cortex. This was then lined with the distal hole of our inserted nail. With the long drill sleeve, we then placed this into our drill guides and proceeded to drill the lateral and medial femoral cortex through our static hole in the distal end of inserted nail. Fluoroscopic view confirmed that we had gone through both cortices. We determined that a 32.5 mm length x5 mm distal locking screw would be utilized. This screw was then inserted into our screw apparatus and we then proceeded to insert this over drilled hole in the femoral shaft. Fluoroscopic views after the screw insertion showed that we had a bicortical screw in satisfactory position in both AP and lateral projection, which showed that it was in the distal hole of inserted nail. Final views of the nail both proximally and distally were then obtained. Again, showed good reduction of our fracture and satisfactory placement of all hardware. I then irrigated the wounds out thoroughly with saline. Closed the wound in layers using 1 simple stitch of 0 Vicryl to approximate the fascia jahaira layer proximally, followed by several buried simple stitches of 2-0 Vicryl to approximate the subcutaneous tissue in the 2 proximal wounds. We then closed all the skin wounds with skin alvin. A total of 24 mL of 0.25% Marcaine with epinephrine was then utilized to provide local anesthesia in our skin incisions. We dressed the wounds and then transferred the patient off the fracture table onto her bed and she was taken to recovery room in satisfactory condition. ESTIMATED BLOOD LOSS: 75 mL. REPLACEMENT: Crystalloid 800 mL. INTRAOPERATIVE COMPLICATIONS: None. PLAN: The patient will be started on physical therapy tomorrow. Weightbearing as tolerated in the extremity with a walker. Likely be in the hospital for another 2-3 days before transfer to a skilled facility for the rest of her postoperative rehabilitation. TD: 11/13/2017 09:37 Revised: Acct # correction 11/14/2017 landen CARLOS
[2017-11-13] MEDS: LOSARTAN 50 MG TABLET PO SCH (10:20)
[2017-11-13] MEDS: CHOLECALCIFEROL 1,000 UNIT TABLET PO SCH (10:20)
[2017-11-13] MEDS: FAMOTIDINE 20 MG TABLET PO SCH (10:20)
[2017-11-13] MEDS: POLYETHYLENE GLYCOL 3350 17 GM PACKET PO SCH (10:21)
[2017-11-13] MEDS: LACTOBACILLUS RHAMNOSUS GG CAPSULE PO SCH (10:21)
[2017-11-13] MEDS: OMEGA-3 ACID ETHYL ESTERS 1 GM CAPSULE PO SCH (10:21)
[2017-11-13] MEDS: LEVOTHYROXINE 100 MCG TABLET PO SCH (10:45)
--- NOTE | 2017-11-13 15:09 | PROVIDER PROGRESS NOTE ---
Subjective - Prog Note Date Prog Note Date: 11/13/17 Prog Note Time: 15:07 - Subjective Subjective: She is so worried about her . He has taken a turn for the worse the last few weeks and she is afraid that he will while she is in the midst of handling this hip fracture and its rehab. Social work, and hospice have taking care of matters at this time. The [facility] already has a [employer] worker of 5 hours a day going every day. They will be increasing the hours of the patient's is covered. On postop day 3, we will have to reassess how this patient is doing to then see whether she goes to rehab herself or if she goes back home with PT Pain is controlled unless she moves that leg. Every once or although the sudden spasms in the leg that are momentary. But she says it is not agonizing it is nothing that she cannot tolerate She denies chest pain, palpitations, shortness of breath Current Medications - Current Medications Current Medications: Active Medications Acetaminophen (Tylenol) 650 - 975 mg PO Q4HR PRN PRN Reason: PAIN Aspirin (Cliff) 325 [facility] PO BIDWM [facility] Cholecalciferol (Vitamin D3) 1,000 unit PO DAILY [facility] Last Admin: 11/13/17 10:20 Dose: 1,000 unit Docusate Sodium (Colace 100mg Capsule) 100 mg PO BID PRN PRN Reason: Constipation Famotidine (Pepcid) 20 mg PO DAILY [facility] Last Admin: 11/13/17 10:20 Dose: 20 mg Cefazolin Sodium/Dextrose (Ancef 2 Gm/50 Ml) 2 gm in 50 mls @ 100 mls/hr IV Q8H [facility] Stop: 11/14/17 00:59 Acetaminophen (Ofirmev) 100 mls @ 400 mls/hr IV Q6HR PRN PRN Reason: PAIN Sodium Chloride (Normal Saline 0.9%) 1,000 mls @ 100 mls/hr IV .Q10H [facility] Last Admin: 11/13/17 10:06 Dose: 100 mls/hr Lactobacillus Rhamnosus (Culturelle) 1 cap PO DAILYWM [facility] Last Admin: 11/13/17 10:21 Dose: 1 cap Levothyroxine Sodium (Synthroid) 100 mcg PO MoTuWeThFrSa@0700 [facility] Last Admin: 11/13/17 10:45 Dose: 100 mcg Losartan Potassium (Cozaar) 50 mg PO DAILY [facility] Last Admin: 11/13/17 10:20 Dose: 50 mg Morphine Sulfate (Morphine) 2 mg IVP Q2HR PRN PRN Reason: PAIN [id number] Ethyl Esters (Lovaza) 1 gm PO DAILY [facility] Last Admin: 11/13/17 10:21 Dose: 1 gm Ondansetron HCl (Zofran Inj) 4 mg IVP Q6HR PRN PRN Reason: Nausea / Vomiting Oxycodone/Acetaminophen (Percocet 5 Mg/325 Mg) 1 tab PO Q4HR PRN PRN Reason: PAIN Polyethylene Glycol (Miralax) 17 gm PO DAILY [facility] Last Admin: 11/13/17 10:21 Dose: 17 gm Prochlorperazine Edisylate (Compazine Inj) 10 mg IVP Q6HR PRN PRN Reason: Nausea / Vomiting Senna (Senokot) 17.2 mg PO Q12H PRN PRN Reason: Constipation Sodium Chloride (Normal Saline Flush 0.9%) 10 ml IVP 0100,0900,1700 [facility] Sodium Chloride (Normal Saline Flush 0.9%) 10 ml IVP PRN PRN PRN Reason: NEEDED PER PROVIDER ORDERS Cholecalciferol (Vitamin D3) [Vitamin D-3] 1,000 units PO DAILY 10/26/13 Levothyroxine [Synthroid] 100 mcg PO MOTUWETHFRSA@0700 10/26/13 Losartan [Cozaar] 50 mg PO DAILY 10/26/13 Glucosamine/D3/Boswellia Cici [Glucosamine Complex-Vit D3 Cpt] 1 each PO UD Multivitamin [Theragran] 1 each PO DAILY 11/13/17 Objective - Vital Signs/Intake & Output Reviewed Vital Signs: Yes Vital Signs: Vital Signs x48h Temp Pulse Resp BP BP Pulse Ox 11/13/17 14:09 36.6 C 57 L 16 128/59 L 97 11/13/17 11:22 36.6 C 55 L 16 133/58 H 100 11/13/17 10:31 36.4 C L 61 16 150/61 H 99 11/13/17 10:03 36.7 C 69 16 149/78 H 97 11/13/17 09:46 100 11/13/17 09:35 99 11/13/17 09:26 100 11/13/17 09:20 100 11/13/17 09:15 96 11/13/17 09:10 100 11/13/17 09:08 100 11/13/17 07:30 36.5 C 58 L 16 156/60 H 95 Intake & Output: Intake & Output 11/10/17 11/11/17 11/12/17 11/13/17 23:59 23:59 23:59 23:59 Intake Total 1996.667 Output Total 350 850 Balance -350 1146.667 - Objective General Appearance: positive: No acute distress, Alert, Other (thin elderly white female who looks stated age) Eyes Bilateral: positive: PERRL, EOMI ENT: positive: No signs of dehydration Neck: positive: No JVD. negative: Stiff neck, Carotid bruit Respiratory: positive: Chest non-tender. negative: Wheezes, Rales, Rhonchi Cardiovascular: positive: Regular rate & rhythm. negative: Gallop/S4, Friction rub Abdomen: positive: Non-tender, No organomegaly, Nml bowel sounds, No distention Skin: positive: Warm, Dry Extremities: positive: Full ROM (xcept for the affect leg), No pedal edema Neurologic/Psychiatric: positive: Oriented x3, CN's nml (2-12), Motor nml - Lab Results Fish Bones: 11/13/17 05:10 11/13/17 05:10 Other Labs: Lab Results x24hrs 11/13/17 11/13/17 11/13/17 Range/Units 05:10 05:10 05:10 WBC (4.8-10.8) x10^3/uL RBC (4.20-5.40) 10^6/uL Hgb (12.0-16.0) g/dL Hct (37.0-47.0) % MCV (81.0-99.0) fL MCH (27.0-31.0) pg MCHC (32.0-36.0) g/dL RDW (12.0-15.0) % Plt Count (130-450) 10^3/uL MPV (7.9-10.8) fL Neut # (1.5-6.6) 10^3/uL Lymph # (1.5-3.5) 10^3/uL [place] # (0.0-1.0) 10^3/uL Eos # (0.0-0.7) 10^3/uL Baso # (0.0-0.1) 10^3/uL Absolute Nucleated RBC x10^3/uL Nucleated RBC % /100WBC PT 12.4 (9.9-12.6) secs INR 1.1 (0.8-1.2) Sodium 139 (135-145) mmol/L Potassium 4.0 (3.5-5.0) mmol/L Chloride 108 (101-111) mmol/L Carbon Dioxide 26 (21-32) mmol/L Anion Gap 5.0 L (6-13) BUN 14 (6-20) mg/dL Creatinine 0.7 (0.4-1.0) mg/dL Estimated GFR (MDRD) 80 L (>89) Glucose 104 H (70-100) mg/dL Calcium 7.9 L (8.5-10.3) mg/dL Phosphorus 3.8 (2.5-4.6) mg/dL Magnesium 1.9 (1.7-2.8) mg/dL Total Bilirubin 0.9 (0.2-1.0) mg/dL AST 22 (10-42) IU/L ALT 16 (10-60) IU/L Alkaline Phosphatase 50 (42-121) IU/L Total Protein 5.6 L (6.7-8.2) g/dL Albumin 3.5 (3.2-5.5) g/dL Globulin 2.1 (2.1-4.2) g/dL Albumin/Globulin Ratio 1.7 (1.0-2.2) TSH 2.04 (0.34-5.60) uIU/mL Urine Color Urine Clarity (CLEAR) Urine pH (5.0-7.5) PH Ur Specific [place] (1.002-1.030) Urine Protein (NEGATIVE) mg/dL Urine Glucose (UA) (NEGATIVE) mg/dL Urine Ketones (NEGATIVE) mg/dL Urine Occult Blood (NEGATIVE) Urine Nitrite (NEGATIVE) Urine Bilirubin (NEGATIVE) Urine Urobilinogen (NORMAL) E.U./dL Ur Leukocyte Esterase (NEGATIVE) Ur Microscopic Review Urine Culture Comments 11/13/17 11/12/17 Range/Units 05:10 22:07 WBC 8.9 (4.8-10.8) x10^3/uL RBC 4.44 (4.20-5.40) 10^6/uL Hgb 12.7 (12.0-16.0) g/dL Hct 38.1 (37.0-47.0) % MCV 85.9 (81.0-99.0) fL MCH 28.6 (27.0-31.0) pg MCHC 33.3 (32.0-36.0) g/dL RDW 14.3 (12.0-15.0) % Plt Count 222 (130-450) 10^3/uL MPV 8.1 (7.9-10.8) fL Neut # 6.2 (1.5-6.6) 10^3/uL Lymph # 1.4 L (1.5-3.5) 10^3/uL [place] # 1.2 H (0.0-1.0) 10^3/uL Eos # 0.1 (0.0-0.7) 10^3/uL Baso # 0.1 (0.0-0.1) 10^3/uL Absolute Nucleated RBC 0.00 x10^3/uL Nucleated RBC % 0.0 /100WBC PT (9.9-12.6) secs INR (0.8-1.2) Sodium (135-145) mmol/L Potassium (3.5-5.0) mmol/L Chloride (101-111) mmol/L Carbon Dioxide (21-32) mmol/L Anion Gap (6-13) BUN (6-20) mg/dL Creatinine (0.4-1.0) mg/dL Estimated GFR (MDRD) (>89) Glucose (70-100) mg/dL Calcium (8.5-10.3) mg/dL Phosphorus (2.5-4.6) mg/dL Magnesium (1.7-2.8) mg/dL Total Bilirubin (0.2-1.0) mg/dL AST (10-42) IU/L ALT (10-60) IU/L Alkaline Phosphatase (42-121) IU/L Total Protein (6.7-8.2) g/dL Albumin (3.2-5.5) g/dL Globulin (2.1-4.2) g/dL Albumin/Globulin Ratio (1.0-2.2) TSH (0.34-5.60) uIU/mL Urine Color YELLOW Urine Clarity CLEAR (CLEAR) Urine pH 7.0 (5.0-7.5) PH Ur Specific [place] 1.015 (1.002-1.030) Urine Protein NEGATIVE (NEGATIVE) mg/dL Urine Glucose (UA) NEGATIVE (NEGATIVE) mg/dL Urine Ketones 15 H (NEGATIVE) mg/dL Urine Occult Blood NEGATIVE (NEGATIVE) Urine Nitrite NEGATIVE (NEGATIVE) Urine Bilirubin NEGATIVE (NEGATIVE) Urine Urobilinogen 0.2 (NORMAL) (NORMAL) E.U./dL Ur Leukocyte Esterase NEGATIVE (NEGATIVE) Ur Microscopic Review NOT INDICATED Urine Culture Comments NOT INDICATED Assessment/Plan - Problem List (1) Intertrochanteric fracture of right hip Impression: Patient had a mechanical fall at home and has suffered a right mildly displaced and angulated intertrochanteric right femur fracture. Taken to the OR by orthopedic surgery this morning for repair of this fracture. POD #0 According to the revised cardiac risk index for preoperative risk the patient's risk of major cardiac event is 0.4%. Currently hip pain controlled. Plan: PT consultation and aim for a disposition to home or SNF by Friday (today is ) Social work consultation for likely placement as well as aid with patient's for whom she is the primary caregiver. The [facility] has authorized 06/01 care at home for now. But decisions will have to be made. IV morphine for pain control Start lovenox for DVT prophylaxis Qualifiers: Encounter type: initial encounter Fracture type: closed Fracture alignment: displaced Qualified Code(s): S72.141A - Displaced intertrochanteric fracture of right femur, initial encounter for closed fracture (2) Hypertension Conclusion/Plan: Patient has history of hypertension. On admit the patient's blood pressure was slightly elevated likely secondary to pain. The patient does use losartan at home for hypertension. Patient will be continued on her home dose of losartan and blood pressure will be monitored. Patient will also be treated for her pain. BP today so far has been 128-150 systolic. No change in meds needed. Qualifiers: Hypertension type: essential hypertension Qualified Code(s): I10 - Essential (primary) hypertension (3) Hypothyroidism Conclusion/Plan: Patient has a history of hypothyroidism and is on Synthroid at home. We will continue the patient on her home dose of Synthroid and check a TSH in the morning. Qualifiers: Hypothyroidism type: unspecified Qualified Code(s): E03.9 - Hypothyroidism , unspecified
[2017-11-13] MEDS: oxyCOD/ACETAMIN 5 MG/325 MG TABLET PO PRN (15:17)
[2017-11-13] MEDS: ceFAZolin 2 GM/50 ML 2 GM/50 ML BAG IV SCH (16:14)
[2017-11-13] MEDS: ENOXAPARIN 40 MG/0.4 ML SYRINGE SUBQ SCH (16:15)
[2017-11-13] MEDS: ASPIRIN 325 MG TABLET PO SCH (17:22)
[2017-11-13] MEDS: SODIUM CHLORIDE FLUSH 0.9% 10 ML SYRINGE IVP SCH (17:22)
[2017-11-13] MEDS ORDERED: ENOXAPARIN 40 MG/0.4 ML SYRINGE SUBQ SCH (21:17)
[2017-11-14] MEDS: ceFAZolin 2 GM/50 ML 2 GM/50 ML BAG IV SCH (00:24)
[2017-11-14] MEDS: oxyCOD/ACETAMIN 5 MG/325 MG TABLET PO PRN ×5 (00:29→21:36)
[2017-11-14] MEDS: SODIUM CHLORIDE FLUSH 0.9% 10 ML SYRINGE IVP SCH ×3 (02:51→16:28)
[2017-11-14 06:25] LABS: BASOPHILS # (AUTO) 0.1 10^3/uL (0.0-0.1); BASOPHILS % (AUTO) 0.7 %; EOSINOPHILS # (AUTO) 0.1 10^3/uL (0.0-0.7); EOSINOPHILS % (AUTO) 1.3 %; HGB - HEMOGLOBIN 8.8 g/dL (12.0-16.0); LYMPHOCYTES # (AUTO) 1.3 10^3/uL (1.5-3.5); LYMPHOCYTES % (AUTO) 17.1 %; MEAN CORPUSCULAR HEMOGLOBIN 28.4 pg (27.0-31.0); MEAN CORPUSCULAR HGB CONC 32.7 g/dL (32.0-36.0); MEAN CORPUSCULAR VOLUME 86.7 fL (81.0-99.0); MEAN PLATELET VOLUME 8.7 fL (7.9-10.8); NEUTROPHILS % (AUTO) 67.9 %; PLT - PLATELET COUNT 166 10^3/uL (130-450); RED BLOOD COUNT 3.09 10^6/uL (4.20-5.40); RED CELL DISTRIBUTION WIDTH 14.1 % (12.0-15.0); WHITE BLOOD COUNT 7.4 x10^3/uL (4.8-10.8)
[2017-11-14 06:41] LABS: ALBUMIN 2.7 g/dL (3.2-5.5); ALBUMIN/GLOBULIN RATIO 1.4 (1.0-2.2); BILIRUBIN,TOTAL 0.5 mg/dL (0.2-1.0); CALCIUM 7.4 mg/dL (8.5-10.3); CREATININE 0.7 mg/dL (0.4-1.0); MAGNESIUM 1.9 mg/dL (1.7-2.8); PHOSPHORUS 2.4 mg/dL (2.5-4.6); TOTAL PROTEIN 4.6 g/dL (6.7-8.2)
[2017-11-14] MEDS: LEVOTHYROXINE 100 MCG TABLET PO SCH (06:44)
[2017-11-14] MEDS: SODIUM CHLORIDE 0.9% 1,000 ML IV SCH ×2 (06:47→16:08)
[2017-11-14] MEDS: LOSARTAN 50 MG TABLET PO SCH (09:20)
[2017-11-14] MEDS: OMEGA-3 ACID ETHYL ESTERS 1 GM CAPSULE PO SCH (09:21)
[2017-11-14] MEDS: POLYETHYLENE GLYCOL 3350 17 GM PACKET PO SCH (09:21)
[2017-11-14] MEDS: FAMOTIDINE 20 MG TABLET PO SCH (09:21)
[2017-11-14] MEDS: ASPIRIN 325 MG TABLET PO SCH ×2 (09:21→16:13)
[2017-11-14] MEDS: CHOLECALCIFEROL 1,000 UNIT TABLET PO SCH (09:21)
[2017-11-14] MEDS: LACTOBACILLUS RHAMNOSUS GG CAPSULE PO SCH (09:21)
[2017-11-14] MEDS: ENOXAPARIN 40 MG/0.4 ML SYRINGE SUBQ SCH (09:21)
[2017-11-14 09:31] LABS: HGB - HEMOGLOBIN 9.1 g/dL (12.0-16.0)
[2017-11-14] MEDS: MORPHINE 2 MG/ML SYRINGE IVP PRN ×2 (10:20→17:19)
--- NOTE | 2017-11-14 10:27 | PROVIDER PROGRESS NOTE ---
Subjective - Prog Note Date Prog Note Date: 11/14/17 Prog Note Time: 10:25 - Subjective Pt reports feeling: Improved Subjective: she is so relieved. Her will be going [facility] on Friday. So she doesn't have to worry about him on his own at their home while she does rehab. the leg only hurts when she moves it. denies cp, sob, abd pain. Current Medications - Current Medications Current Medications: Active Medications Acetaminophen (Tylenol) 650 - 975 mg PO Q4HR PRN PRN Reason: PAIN Aspirin (Cliff) 325 mg PO BIDWM [facility] Last Admin: 11/14/17 09:21 Dose: 325 mg Cholecalciferol (Vitamin D3) 1,000 unit PO DAILY [facility] Last Admin: 11/14/17 09:21 Dose: 1,000 unit Docusate Sodium (Colace 100mg Capsule) 100 mg PO BID PRN PRN Reason: Constipation Enoxaparin Sodium (Lovenox) 40 mg SUBQ DAILY [facility] Last Admin: 11/14/17 09:21 Dose: 40 mg Famotidine (Pepcid) 20 mg PO DAILY [facility] Last Admin: 11/14/17 09:21 Dose: 20 mg Acetaminophen (Ofirmev) 100 mls @ 400 mls/hr IV Q6HR PRN PRN Reason: PAIN Last Infusion: 18 20:31 Dose: Infused Sodium Chloride (Normal Saline 0.9%) 1,000 mls @ 100 mls/hr IV .Q10H [facility] Last Admin: 11/14/17 06:47 Dose: 100 mls/hr Lactobacillus Rhamnosus (Culturelle) 1 cap PO DAILYWM [facility] Last Admin: 11/14/17 09:21 Dose: 1 cap Levothyroxine Sodium (Synthroid) 100 mcg PO MoTuWeThFrSa@0700 [facility] Last Admin: 11/14/17 06:44 Dose: 100 mcg Losartan Potassium (Cozaar) 50 mg PO DAILY [facility] Last Admin: 11/14/17 09:20 Dose: 50 mg Morphine Sulfate (Morphine) 2 mg IVP Q2HR PRN PRN Reason: PAIN Last Admin: 11/14/17 10:20 Dose: 2 mg [id number] Ethyl Esters (Lovaza) 1 gm PO DAILY [facility] Last Admin: 06/01/18 09:21 Dose: 1 gm Ondansetron HCl (Zofran Inj) 4 mg IVP Q6HR PRN PRN Reason: Nausea / Vomiting Oxycodone/Acetaminophen (Percocet 5 Mg/325 Mg) 1 tab PO Q4HR PRN PRN Reason: PAIN Last Admin: 11/14/17 12:37 Dose: 1 tab Polyethylene Glycol (Miralax) 17 gm PO DAILY [facility] Last Admin: 11/14/17 09:21 Dose: Not Given Prochlorperazine Edisylate (Compazine Inj) 10 mg IVP Q6HR PRN PRN Reason: Nausea / Vomiting Senna (Senokot) 17.2 mg PO Q12H PRN PRN Reason: Constipation Sodium Chloride (Normal Saline Flush 0.9%) 10 ml IVP 0100,0900,1700 [facility] Last Admin: 11/14/17 09:21 Dose: 10 ml Sodium Chloride (Normal Saline Flush 0.9%) 10 ml IVP PRN PRN PRN Reason: NEEDED PER PROVIDER ORDERS Cholecalciferol (Vitamin D3) [Vitamin D-3] 1,000 units PO DAILY 10/26/13 Levothyroxine [Synthroid] 100 mcg PO MOTUWETHFRSA@0700 10/26/13 Losartan [Cozaar] 50 mg PO DAILY 10/26/13 Glucosamine/D3/Boswellia Cici [Glucosamine Complex-Vit D3 Cpt] 1 each PO UD Multivitamin [Theragran] 1 each PO DAILY 11/13/17 Objective - Vital Signs/Intake & Output Reviewed Vital Signs: Yes Vital Signs: Vital Signs x48h Temp Pulse Resp BP Pulse Ox 11/14/17 07:46 36.9 C 64 16 113/47 L 98 Intake & Output: Intake & Output 11/11/17 11/12/17 11/13/17 11/14/17 23:59 23:59 23:59 23:59 Intake Total 3446.667 1441.666 Output Total 350 1225 1975 Balance -350 2221.667 -533.334 - Objective General Appearance: positive: No acute distress, Alert, Other (slender elderly white female with neighbor and best friend in room visiting.) Eyes Bilateral: positive: PERRL, EOMI ENT: positive: Dry mucous membranes (very dry, lips keep on sticking to her teeth) Neck: positive: No JVD. negative: Stiff neck, Carotid bruit Respiratory: positive: Chest non-tender. negative: Wheezes, Rales, Rhonchi Cardiovascular: positive: Regular rate & rhythm, Systolic murmur. negative: Gallop/S4, Friction rub Abdomen: positive: Non-tender, No organomegaly, Nml bowel sounds, No distention Skin: positive: Warm, Dry Extremities: positive: No pedal edema. negative: Full ROM (right hip and leg hurt from the hip surgery. not bending her knee yet) Neurologic/Psychiatric: positive: Oriented x3, CN's nml (2-12), Motor nml, Sensation nml - Lab Results Fish Bones: 11/14/17 08:57 11/14/17 05:35 Other Labs: Lab Results x24hrs 11/14/17 11/14/17 11/14/17 Range/Units 08:57 05:35 05:35 WBC 7.4 (4.8-10.8) x10^3/uL RBC 3.09 L (4.20-5.40) 10^6/uL Hgb 9.1 L 8.8 L (12.0-16.0) g/dL Hct 27.2 L 26.8 L (37.0-47.0) % MCV 86.7 (81.0-99.0) fL MCH 28.4 (27.0-31.0) pg MCHC 32.7 (32.0-36.0) g/dL RDW 14.1 (12.0-15.0) % Plt Count 166 (130-450) 10^3/uL MPV 8.7 (7.9-10.8) fL Neut # 5.0 (1.5-6.6) 10^3/uL Lymph # 1.3 L (1.5-3.5) 10^3/uL [place] # 1.0 (0.0-1.0) 10^3/uL Eos # 0.1 (0.0-0.7) 10^3/uL Baso # 0.1 (0.0-0.1) 10^3/uL Absolute Nucleated RBC 0.00 x10^3/uL Nucleated RBC % 0.0 /100WBC Sodium 137 (135-145) mmol/L Potassium 4.0 (3.5-5.0) mmol/L Chloride 108 (101-111) mmol/L Carbon Dioxide 24 (21-32) mmol/L Anion Gap 5.0 L (6-13) BUN 12 (6-20) mg/dL Creatinine 0.7 (0.4-1.0) mg/dL Estimated GFR (MDRD) 80 L (>89) Glucose 102 H (70-100) mg/dL Calcium 7.4 L (8.5-10.3) mg/dL Phosphorus 2.4 L (2.5-4.6) mg/dL Magnesium 1.9 (1.7-2.8) mg/dL Total Bilirubin 0.5 (0.2-1.0) mg/dL AST 18 (10-42) IU/L ALT 12 (10-60) IU/L Alkaline Phosphatase 36 L (42-121) IU/L Total Protein 4.6 L (6.7-8.2) g/dL Albumin 2.7 L (3.2-5.5) g/dL Globulin 1.9 L (2.1-4.2) g/dL Albumin/Globulin Ratio 1.4 (1.0-2.2) ABX Reporting Has patient been on IV antibiotics over the past 48 hours?: No Assessment/Plan - Problem List (1) Intertrochanteric fracture of right hip Impression: Patient had a mechanical fall at home and has suffered a right mildly displaced and angulated intertrochanteric right femur fracture. Taken to the OR by orthopedic surgery 11/13 for repair of this fracture. POD #1 According to the revised cardiac risk index for preoperative risk the patient's risk of major cardiac event is 0.4%. Currently hip pain controlled. Only hurts when she moves it. Plan: PT consultation and aim for a disposition to home or SNF by Friday 11/17 . [facility] for her at home for now and then he will go to [facility] on Friday with her. IV morphine for pain control Lovenox for DVT prophylaxis started 11/13 Qualifiers: Encounter type: initial encounter Fracture type: closed Fracture alignment: displaced Qualified Code(s): S72.141A - Displaced intertrochanteric fracture of right femur, initial encounter for closed fracture (2) Hypertension Conclusion/Plan: Patient has history of hypertension. On admit the patient's blood pressure was slightly elevated likely secondary to pain. The patient does use losartan at home for hypertension. Patient will be continued on her home dose of losartan and blood pressure will be monitored. Patient will also be treated for her pain. BP today so far this morning has been 101-113 systolic. BP meds held. Hgb is down (14>9.1) but not enough to transfuse. Qualifiers: Hypertension type: essential hypertension Qualified Code(s): I10 - Essential (primary) hypertension (3) Hypothyroidism Conclusion/Plan: Patient has a history of hypothyroidism and is on Synthroid at home. We will continue the patient on her home dose of Synthroid and check a TSH in the morning. Qualifiers: Hypothyroidism type: unspecified Qualified Code(s): E03.9 - Hypothyroidism , unspecified
--- NOTE | 2017-11-14 12:18 | PROVIDER PROGRESS NOTE ---
Subjective - Prog Note Date Prog Note Date: 11/14/17 Prog Note Time: 12:16 - Subjective Pt reports feeling: Improved (Usual post op pain. Up in chair) Objective - Vital Signs/Intake & Output Vital Signs: Vital Signs x48h Temp Pulse Resp BP Pulse Ox 11/14/17 07:46 36.9 C 64 16 113/47 L 98 Intake & Output: Intake & Output 11/11/17 11/12/17 11/13/17 11/14/17 23:59 23:59 23:59 23:59 Intake Total 3446.667 1441.666 Output Total 350 1225 1975 Balance -350 2221.667 -533.334 - Lab Results Fish Bones: 11/14/17 08:57 11/14/17 05:35 Other Labs: Lab Results x24hrs 11/14/17 11/14/17 11/14/17 Range/Units 08:57 05:35 05:35 WBC 7.4 (4.8-10.8) x10^3/uL RBC 3.09 L (4.20-5.40) 10^6/uL Hgb 9.1 L 8.8 L (12.0-16.0) g/dL Hct 27.2 L 26.8 L (37.0-47.0) % MCV 86.7 (81.0-99.0) fL MCH 28.4 (27.0-31.0) pg MCHC 32.7 (32.0-36.0) g/dL RDW 14.1 (12.0-15.0) % Plt Count 166 (130-450) 10^3/uL MPV 8.7 (7.9-10.8) fL Neut # 5.0 (1.5-6.6) 10^3/uL Lymph # 1.3 L (1.5-3.5) 10^3/uL [place] # 1.0 (0.0-1.0) 10^3/uL Eos # 0.1 (0.0-0.7) 10^3/uL Baso # 0.1 (0.0-0.1) 10^3/uL Absolute Nucleated RBC 0.00 x10^3/uL Nucleated RBC % 0.0 /100WBC Sodium 137 (135-145) mmol/L Potassium 4.0 (3.5-5.0) mmol/L Chloride 108 (101-111) mmol/L Carbon Dioxide 24 (21-32) mmol/L Anion Gap 5.0 L (6-13) BUN 12 (6-20) mg/dL Creatinine 0.7 (0.4-1.0) mg/dL Estimated GFR (MDRD) 80 L (>89) Glucose 102 H (70-100) mg/dL Calcium 7.4 L (8.5-10.3) mg/dL Phosphorus 2.4 L (2.5-4.6) mg/dL Magnesium 1.9 (1.7-2.8) mg/dL Total Bilirubin 0.5 (0.2-1.0) mg/dL AST 18 (10-42) IU/L ALT 12 (10-60) IU/L Alkaline Phosphatase 36 L (42-121) IU/L Total Protein 4.6 L (6.7-8.2) g/dL Albumin 2.7 L (3.2-5.5) g/dL Globulin 1.9 L (2.1-4.2) g/dL Albumin/Globulin Ratio 1.4 (1.0-2.2) - Other Results/Comments Other Results/Comments: EXAM: Up in chair. Dressing intact. Mild pain with hip motion. N/V ok distally Assessment/Plan - Problem List (1) Intertrochanteric fracture of right hip Impression: Satis post op PLAN: Mobilize as tolerated in PT.
[2017-11-15] MEDS: SODIUM CHLORIDE FLUSH 0.9% 10 ML SYRINGE IVP SCH ×4 (00:12→23:35)
[2017-11-15] MEDS: SODIUM CHLORIDE 0.9% 1,000 ML IV SCH ×3 (01:38→21:08)
[2017-11-15 05:39] LABS: BASOPHILS # (AUTO) 0.1 10^3/uL (0.0-0.1); BASOPHILS % (AUTO) 1.1 %; EOSINOPHILS # (AUTO) 0.2 10^3/uL (0.0-0.7); EOSINOPHILS % (AUTO) 3.8 %; LYMPHOCYTES # (AUTO) 1.1 10^3/uL (1.5-3.5); LYMPHOCYTES % (AUTO) 18.3 %; MEAN CORPUSCULAR HEMOGLOBIN 28.9 pg (27.0-31.0); MEAN CORPUSCULAR HGB CONC 33.6 g/dL (32.0-36.0); MEAN PLATELET VOLUME 8.5 fL (7.9-10.8); MONOCYTES # (AUTO) 0.8 10^3/uL (0.0-1.0); MONOCYTES % (AUTO) 12.9 %; NEUTROPHILS # (AUTO) 3.8 10^3/uL (1.5-6.6); NEUTROPHILS % (AUTO) 63.9 %; PLT - PLATELET COUNT 160 10^3/uL (130-450); RED BLOOD COUNT 2.78 10^6/uL (4.20-5.40); RED CELL DISTRIBUTION WIDTH 13.9 % (12.0-15.0); WHITE BLOOD COUNT 5.9 x10^3/uL (4.8-10.8)
[2017-11-15 05:48] LABS: ALBUMIN 2.7 g/dL (3.2-5.5); ALBUMIN/GLOBULIN RATIO 1.2 (1.0-2.2); BILIRUBIN,TOTAL 0.7 mg/dL (0.2-1.0); CALCIUM 7.3 mg/dL (8.5-10.3); CREATININE 0.6 mg/dL (0.4-1.0); MAGNESIUM 1.8 mg/dL (1.7-2.8); PHOSPHORUS 1.9 mg/dL (2.5-4.6); TOTAL PROTEIN 4.9 g/dL (6.7-8.2)
[2017-11-15] MEDS: LEVOTHYROXINE 100 MCG TABLET PO SCH (06:27)
--- NOTE | 2017-11-15 07:55 | PROVIDER PROGRESS NOTE ---
Subjective - Prog Note Date Prog Note Date: 11/15/17 Prog Note Time: 07:53 - Subjective Pt reports feeling: Improved Subjective: blood pressure has come back up over the last 2 days. Wound bandange is wet and needed to be changed more serous drainage that ususal but no fever, no elevation of WBC able to sit up and stand today. Current Medications - Current Medications Current Medications: Active Medications Acetaminophen (Tylenol) 650 - 975 mg PO Q4HR PRN PRN Reason: PAIN Aspirin (Cliff) 325 mg PO BIDWM [facility] Last Admin: 11/14/17 16:13 Dose: 325 mg Cholecalciferol (Vitamin D3) 1,000 unit PO DAILY [facility] Last Admin: 11/14/17 09:21 Dose: 1,000 unit Docusate Sodium (Colace 100mg Capsule) 100 mg PO BID PRN PRN Reason: Constipation Enoxaparin Sodium (Lovenox) 40 mg SUBQ DAILY [facility] Last Admin: 11/14/17 09:21 Dose: 40 mg Famotidine (Pepcid) 20 mg PO DAILY [facility] Last Admin: 11/14/17 09:21 Dose: 20 mg Acetaminophen (Ofirmev) 100 mls @ 400 mls/hr IV Q6HR PRN PRN Reason: PAIN Last Infusion: 11/13/17 20:31 Dose: Infused Sodium Chloride (Normal Saline 0.9%) 1,000 mls @ 100 mls/hr IV .Q10H [facility] Last Admin: 11/15/17 01:38 Dose: 100 mls/hr Lactobacillus Rhamnosus (Culturelle) 1 cap PO DAILYWM [facility] Last Admin: 11/14/17 09:21 Dose: 1 cap Levothyroxine Sodium (Synthroid) 100 mcg PO MoTuWeThFrSa@0700 [facility] Last Admin: 11/15/17 06:27 Dose: 100 mcg Losartan Potassium (Cozaar) 50 mg PO DAILY [facility] Last Admin: 11/14/17 09:20 Dose: 50 mg Morphine Sulfate (Morphine) 2 mg IVP Q2HR PRN PRN Reason: PAIN Last Admin: 11/14/17 17:19 Dose: 2 mg Xcmlb-[id number]-Coyh Ethyl Esters (Lovaza) 1 gm PO DAILY [facility] Last Admin: 11/14/17 09:21 Dose: 1 gm Ondansetron HCl (Zofran Inj) 4 mg IVP Q6HR PRN PRN Reason: Nausea / Vomiting Oxycodone/Acetaminophen (Percocet 5 Mg/325 Mg) 1 tab PO Q4HR PRN PRN Reason: PAIN Last Admin: 11/14/17 21:36 Dose: 1 tab Polyethylene Glycol (Miralax) 17 gm PO DAILY [facility] Last Admin: 11/14/17 09:21 Dose: Not Given Prochlorperazine Edisylate (Compazine Inj) 10 mg IVP Q6HR PRN PRN Reason: Nausea / Vomiting Senna (Senokot) 17.2 mg PO Q12H PRN PRN Reason: Constipation Sodium Chloride (Normal Saline Flush 0.9%) 10 ml IVP 0100,0900,1700 [facility] Last Admin: 11/15/17 00:12 Dose: Not Given Sodium Chloride (Normal Saline Flush 0.9%) 10 ml IVP PRN PRN PRN Reason: NEEDED PER PROVIDER ORDERS Cholecalciferol (Vitamin D3) [Vitamin D-3] 1,000 units PO DAILY 10/26/13 Levothyroxine [Synthroid] 100 mcg PO MOTUWETHFRSA@0700 10/26/13 Losartan [Cozaar] 50 mg PO DAILY 10/26/13 Glucosamine/D3/Boswellia Cici [Glucosamine Complex-Vit D3 Cpt] 1 each PO UD Multivitamin [Theragran] 1 each PO DAILY 11/13/17 Objective - Vital Signs/Intake & Output Reviewed Vital Signs: Yes Vital Signs: Vital Signs x48h Temp Pulse Resp BP BP Pulse Ox 11/15/17 06:00 36.3 C L 64 16 151/56 H 96 11/15/17 00:44 37.3 C 67 16 128/55 L 99 Intake & Output: Intake & Output 11/12/17 11/13/17 11/14/17 11/15/17 23:59 23:59 23:59 23:59 Intake Total 3446.667 2846.666 950 Output Total 350 1225 1975 Balance -350 2221.667 871.666 950 - Objective General Appearance: positive: No acute distress, Alert, Other (sitting up her chair. exhausted and wants to nap but will wait for Shaheed, PT and then take her nap) Eyes Bilateral: positive: PERRL ENT: positive: Pharynx nml Neck: negative: No JVD, Stiff neck, Carotid bruit Respiratory: negative: Chest non-tender, Wheezes, Rales, Rhonchi Cardiovascular: positive: Regular rate & rhythm, Systolic murmur. negative: Gallop/S4, Friction rub Abdomen: positive: Non-tender, No organomegaly, Nml bowel sounds, No distention Skin: positive: Warm, Dry Extremities: positive: Full ROM (except for her hip), No pedal edema Neurologic/Psychiatric: positive: Oriented x3, CN's nml (2-12), Motor nml - Lab Results Fish Bones: 11/15/17 08:58 11/15/17 05:15 Other Labs: Lab Results x24hrs 11/15/17 11/15/17 11/14/17 Range/Units 05:15 05:15 08:57 WBC 5.9 (4.8-10.8) x10^3/uL RBC 2.78 L (4.20-5.40) 10^6/uL Hgb 8.0 L 9.1 L (12.0-16.0) g/dL Hct 23.9 L 27.2 L (37.0-47.0) % MCV 86.0 (81.0-99.0) fL MCH 28.9 (27.0-31.0) pg MCHC 33.6 (32.0-36.0) g/dL RDW 13.9 (12.0-15.0) % Plt Count 160 (130-450) 10^3/uL MPV 8.5 (7.9-10.8) fL Neut # (Auto) 3.8 (1.5-6.6) 10^3/uL Lymph # (Auto) 1.1 L (1.5-3.5) 10^3/uL [place] # (Auto) 0.8 (0.0-1.0) 10^3/uL Eos # (Auto) 0.2 (0.0-0.7) 10^3/uL Baso # (Auto) 0.1 (0.0-0.1) 10^3/uL Absolute Nucleated RBC 0.00 x10^3/uL Nucleated RBC % 0.1 /100WBC Sodium 136 (135-145) mmol/L Potassium 3.5 (3.5-5.0) mmol/L Chloride 108 (101-111) mmol/L Carbon Dioxide 25 (21-32) mmol/L Anion Gap 3.0 L (6-13) BUN 8 (6-20) mg/dL Creatinine 0.6 (0.4-1.0) mg/dL Estimated GFR (MDRD) 96 (>89) Glucose 102 H (70-100) mg/dL Calcium 7.3 L (8.5-10.3) mg/dL Phosphorus 1.9 L (2.5-4.6) mg/dL Magnesium 1.8 (1.7-2.8) mg/dL Total Bilirubin 0.7 (0.2-1.0) mg/dL AST 21 (10-42) IU/L ALT 11 (10-60) IU/L Alkaline Phosphatase 37 L (42-121) IU/L Total Protein 4.9 L (6.7-8.2) g/dL Albumin 2.7 L (3.2-5.5) g/dL Globulin 2.2 (2.1-4.2) g/dL Albumin/Globulin Ratio 1.2 (1.0-2.2) ABX Reporting Has patient been on IV antibiotics over the past 48 hours?: No Assessment/Plan - Problem List (1) Intertrochanteric fracture of right hip Impression: Patient had a mechanical fall at home and has suffered a right mildly displaced and angulated intertrochanteric right femur fracture. Taken to the OR by orthopedic surgery 11/13 for repair of this fracture. POD #2 According to the revised cardiac risk index for preoperative risk the patient's risk of major cardiac event is 0.4%. Currently hip pain controlled. Only hurts when she moves it. Able to stand and walk a few steps today. Plan: PT seeing her and aim for a disposition to SNF by Friday 11/17 . [facility] for her at home for now and then he will go to [facility] on Friday with her. IV morphine for pain control will keep a close eye on that wound to make sure no bleeding or infection Lovenox for DVT prophylaxis started 11/13 Qualifiers: Encounter type: initial encounter Fracture type: closed Fracture alignment: displaced Qualified Code(s): S72.141A - Displaced intertrochanteric fracture of right femur, initial encounter for closed fracture (2) Hypertension Conclusion/Plan: Patient has history of hypertension. On admit the patient's blood pressure was slightly elevated likely secondary to pain. The patient does use losartan at home for hypertension. Patient will be continued on her home dose of losartan and blood pressure will be monitored. Patient will also be treated for her pain. BP today so far this morning has been 144-161 systolic. BP meds were held 11/13 for a low BP and a Hgb that was down (14>9.1) but not enough to transfuse. Today she is 9 gram. Qualifiers: Hypertension type: essential hypertension Qualified Code(s): I10 - Essential (primary) hypertension (3) Hypothyroidism Conclusion/Plan: Patient has a history of hypothyroidism and is on Synthroid at home. We will continue the patient on her home dose of Synthroid and check a TSH in the morning. Qualifiers: Hypothyroidism type: unspecified Qualified Code(s): E03.9 - Hypothyroidism , unspecified
[2017-11-15] MEDS: FAMOTIDINE 20 MG TABLET PO SCH (08:30)
[2017-11-15] MEDS: OMEGA-3 ACID ETHYL ESTERS 1 GM CAPSULE PO SCH (08:30)
[2017-11-15] MEDS: LOSARTAN 50 MG TABLET PO SCH (08:30)
[2017-11-15] MEDS: ASPIRIN 325 MG TABLET PO SCH ×2 (08:30→17:00)
[2017-11-15] MEDS: ENOXAPARIN 40 MG/0.4 ML SYRINGE SUBQ SCH (08:30)
[2017-11-15] MEDS: CHOLECALCIFEROL 1,000 UNIT TABLET PO SCH (08:30)
[2017-11-15] MEDS: LACTOBACILLUS RHAMNOSUS GG CAPSULE PO SCH (08:30)
[2017-11-15] MEDS: POLYETHYLENE GLYCOL 3350 17 GM PACKET PO SCH (08:30)
[2017-11-15] MEDS: SODIUM CHLORIDE FLUSH 0.9% 10 ML SYRINGE IVP PRN ×2 (08:58→10:12)
--- NOTE | 2017-11-15 11:06 | PROVIDER PROGRESS NOTE ---
Subjective - Prog Note Date Prog Note Date: 11/15/17 Prog Note Time: 11:03 - Subjective Pt reports feeling: Improved (Much less pain today. Walked to bathroom today with assistance) Objective - Vital Signs/Intake & Output Vital Signs: Vital Signs x48h Temp Pulse Resp BP BP Pulse Ox 11/15/17 08:02 37.2 C 68 12 149/48 H 161/51 H 97 11/15/17 06:00 36.3 C L 64 16 151/56 H 96 Intake & Output: Intake & Output 11/12/17 11/13/17 11/14/17 11/15/17 23:59 23:59 23:59 23:59 Intake Total 3446.667 2846.666 1310 Output Total 350 1225 1975 Balance -350 2221.667 401.126 9919 - Lab Results Fish Bones: 11/15/17 08:58 11/15/17 05:15 Other Labs: Lab Results x24hrs 11/15/17 11/15/17 11/15/17 Range/Units 08:58 05:15 05:15 WBC 5.9 (4.8-10.8) x10^3/uL RBC 2.78 L (4.20-5.40) 10^6/uL Hgb 9.0 L 8.0 L (12.0-16.0) g/dL Hct 26.3 L 23.9 L (37.0-47.0) % MCV 86.0 (81.0-99.0) fL MCH 28.9 (27.0-31.0) pg MCHC 33.6 (32.0-36.0) g/dL RDW 13.9 (12.0-15.0) % Plt Count 160 (130-450) 10^3/uL MPV 8.5 (7.9-10.8) fL Neut # (Auto) 3.8 (1.5-6.6) 10^3/uL Lymph # (Auto) 1.1 L (1.5-3.5) 10^3/uL [place] # (Auto) 0.8 (0.0-1.0) 10^3/uL Eos # (Auto) 0.2 (0.0-0.7) 10^3/uL Baso # (Auto) 0.1 (0.0-0.1) 10^3/uL Absolute Nucleated RBC 0.00 x10^3/uL Nucleated RBC % 0.1 /100WBC Sodium 136 (135-145) mmol/L Potassium 3.5 (3.5-5.0) mmol/L Chloride 108 (101-111) mmol/L Carbon Dioxide 25 (21-32) mmol/L Anion Gap 3.0 L (6-13) BUN 8 (6-20) mg/dL Creatinine 0.6 (0.4-1.0) mg/dL Estimated GFR (MDRD) 96 (>89) Glucose 102 H (70-100) mg/dL Calcium 7.3 L (8.5-10.3) mg/dL Phosphorus 1.9 L (2.5-4.6) mg/dL Magnesium 1.8 (1.7-2.8) mg/dL Total Bilirubin 0.7 (0.2-1.0) mg/dL AST 21 (10-42) IU/L ALT 11 (10-60) IU/L Alkaline Phosphatase 37 L (42-121) IU/L Total Protein 4.9 L (6.7-8.2) g/dL Albumin 2.7 L (3.2-5.5) g/dL Globulin 2.2 (2.1-4.2) g/dL Albumin/Globulin Ratio 1.2 (1.0-2.2) - Other Results/Comments Other Results/Comments: EXAM: Dressing intact. Moves hip with mild pain. N/V ok distally Assessment/Plan - Problem List (1) Intertrochanteric fracture of right hip Impression: Satis post op PLAN: Mobilize as tolerated. To SNF on Mon to join her . Continue PT _ walker ambulate - WBAT on right. Follow up in orthopedic clinic in 2 weeks for alvin out and new XR. Continue aspirin x 2-3 weeks.
[2017-11-15] MEDS: oxyCOD/ACETAMIN 5 MG/325 MG TABLET PO PRN ×2 (13:32→23:37)
[2017-11-15] MEDS: SENNA 8.6 MG TABLET PO SCH (19:38)
[2017-11-15] MEDS: DOCUSATE SODIUM 250 MG CAPSULE PO SCH (19:38)
[2017-11-16 05:58] LABS: BASOPHILS # (AUTO) 0.1 10^3/uL (0.0-0.1); BASOPHILS % (AUTO) 0.9 %; EOSINOPHILS # (AUTO) 0.3 10^3/uL (0.0-0.7); EOSINOPHILS % (AUTO) 5.4 %; HGB - HEMOGLOBIN 8.2 g/dL (12.0-16.0); LYMPHOCYTES # (AUTO) 1.5 10^3/uL (1.5-3.5); LYMPHOCYTES % (AUTO) 24.9 %; MEAN CORPUSCULAR VOLUME 85.2 fL (81.0-99.0); MEAN PLATELET VOLUME 8.3 fL (7.9-10.8); MONOCYTES # (AUTO) 0.7 10^3/uL (0.0-1.0); MONOCYTES % (AUTO) 12.1 %; NEUTROPHILS # (AUTO) 3.4 10^3/uL (1.5-6.6); NEUTROPHILS % (AUTO) 56.7 %; PLT - PLATELET COUNT 173 10^3/uL (130-450); RED BLOOD COUNT 2.82 10^6/uL (4.20-5.40); RED CELL DISTRIBUTION WIDTH 13.9 % (12.0-15.0)
[2017-11-16 06:04] LABS: ALBUMIN 2.7 g/dL (3.2-5.5); BILIRUBIN,TOTAL 0.6 mg/dL (0.2-1.0); CALCIUM 7.7 mg/dL (8.5-10.3); CREATININE 0.6 mg/dL (0.4-1.0); MAGNESIUM 1.8 mg/dL (1.7-2.8); PHOSPHORUS 2.1 mg/dL (2.5-4.6); TOTAL PROTEIN 5.3 g/dL (6.7-8.2)
[2017-11-16] MEDS ORDERED: LACTULOSE 10 GM /15 ML UDC PO ONE (06:07)
[2017-11-16] MEDS: SODIUM CHLORIDE 0.9% 1,000 ML IV SCH ×2 (06:51→16:29)
--- NOTE | 2017-11-16 07:57 | PROVIDER PROGRESS NOTE ---
Subjective - Prog Note Date Prog Note Date: 11/16/17 Prog Note Time: 07:56 - Subjective Subjective: pain better controlled this am. denies cp , sob. wound not saturating the dressings right now as they were yesterday. Current Medications - Current Medications Current Medications: Active Medications Acetaminophen (Tylenol) 650 - 975 mg PO Q4HR PRN PRN Reason: PAIN Last Admin: 11/15/17 11:52 Dose: 650 mg Aspirin (Cliff) 325 mg PO BIDWM [facility] Last Admin: 11/15/17 17:00 Dose: 325 mg Cholecalciferol (Vitamin D3) 1,000 unit PO DAILY [facility] Last Admin: 11/15/17 08:30 Dose: 1,000 unit Docusate Sodium (Colace 100mg Capsule) 100 mg PO BID PRN PRN Reason: Constipation Docusate Sodium (Colace 250mg Capsule) 250 - 500 mg PO DAILY [facility] Last Admin: 11/15/17 19:38 Dose: 250 mg Enoxaparin Sodium (Lovenox) 40 mg SUBQ DAILY [facility] Last Admin: 11/15/17 08:30 Dose: 40 mg Famotidine (Pepcid) 20 mg PO DAILY [facility] Last Admin: 11/15/17 08:30 Dose: 20 mg Acetaminophen (Ofirmev) 100 mls @ 400 mls/hr IV Q6HR PRN PRN Reason: PAIN Last Infusion: 11/13/17 20:31 Dose: Infused Sodium Chloride (Normal Saline 0.9%) 1,000 mls @ 100 mls/hr IV .Q10H [facility] Last Admin: 11/16/17 06:51 Dose: 100 mls/hr Lactobacillus Rhamnosus (Culturelle) 1 cap PO DAILYWM [facility] Last Admin: 11/15/17 08:30 Dose: 1 cap Levothyroxine Sodium (Synthroid) 100 mcg PO MoTuWeThFrSa@0700 [facility] Last Admin: 11/15/17 06:27 Dose: 100 mcg Losartan Potassium (Cozaar) 50 mg PO DAILY [facility] Last Admin: 11/15/17 08:30 Dose: 50 mg Morphine Sulfate (Morphine) 2 mg IVP Q2HR PRN PRN Reason: PAIN Last Admin: 11/14/17 17:19 Dose: 2 mg Brfee-0-Vrth Ethyl Esters (Lovaza) 1 gm PO DAILY [facility] Last Admin: 11/15/17 08:30 Dose: 1 gm Ondansetron HCl (Zofran Inj) 4 mg IVP Q6HR PRN PRN Reason: Nausea / Vomiting Oxycodone/Acetaminophen (Percocet 5 Mg/325 Mg) 1 tab PO Q4HR PRN PRN Reason: PAIN Last Admin: 11/15/17 23:37 Dose: 1 tab Polyethylene Glycol (Miralax) 17 gm PO DAILY [facility] Last Admin: 11/15/17 08:30 Dose: 17 gm Prochlorperazine Edisylate (Compazine Inj) 10 mg IVP Q6HR PRN PRN Reason: Nausea / Vomiting Senna (Senokot) 17.2 mg PO Q12H PRN PRN Reason: Constipation Senna (Senokot) 8.6 - 17.2 mg PO DAILY [facility] Last Admin: 11/15/17 19:38 Dose: 8.6 mg Sodium Chloride (Normal Saline Flush 0.9%) 10 ml IVP 0100,0900,1700 [facility] Last Admin: 11/15/17 23:35 Dose: Not Given Sodium Chloride (Normal Saline Flush 0.9%) 10 ml IVP PRN PRN PRN Reason: NEEDED PER PROVIDER ORDERS Last Admin: 11/15/17 10:12 Dose: 10 ml Cholecalciferol (Vitamin D3) [Vitamin D-3] 1,000 units PO DAILY 10/26/13 Levothyroxine [Synthroid] 100 mcg PO MOTUWETHFRSA@0700 10/26/13 Losartan [Cozaar] 50 mg PO DAILY 10/26/13 Glucosamine/D3/Boswellia Cici [Glucosamine Complex-Vit D3 Cpt] 1 each PO UD Multivitamin [Theragran] 1 each PO DAILY 11/13/17 Objective - Vital Signs/Intake & Output Reviewed Vital Signs: Yes Vital Signs: Vital Signs x48h Temp Pulse Resp BP Pulse Ox 11/16/17 07:54 36.9 C 70 14 166/63 H 98 Intake & Output: Intake & Output 11/13/17 11/14/17 11/15/17 11/16/17 23:59 23:59 23:59 23:59 Intake Total 3446.667 2846.666 4250.000 971.667 Output Total 1225 1975 1100 900 Balance 2221.667 472.669 6458.000 71.667 - Objective General Appearance: positive: No acute distress, Alert, Other (slender elderly white female looks stated age.) Eyes Bilateral: positive: PERRL, EOMI ENT: negative: Dry mucous membranes Neck: positive: No JVD. negative: Stiff neck, Carotid bruit Respiratory: positive: Chest non-tender. negative: Wheezes, Rales, Rhonchi Cardiovascular: positive: Regular rate & rhythm. negative: Gallop/S4, Friction rub Abdomen: positive: Non-tender, No organomegaly, Nml bowel sounds, No distention Skin: positive: Warm, Dry Extremities: positive: Full ROM (except for hip), No pedal edema Neurologic/Psychiatric: positive: Oriented x3, CN's nml (2-12), Motor nml - Lab Results Fish Bones: 11/16/17 05:30 11/16/17 05:30 Other Labs: Lab Results x24hrs 11/16/17 11/16/17 11/15/17 Range/Units 05:30 05:30 08:58 WBC 6.0 (4.8-10.8) x10^3/uL RBC 2.82 L (4.20-5.40) 10^6/uL Hgb 8.2 L 9.0 L (12.0-16.0) g/dL Hct 24.0 L 26.3 L (37.0-47.0) % MCV 85.2 (81.0-99.0) fL MCH 29.0 (27.0-31.0) pg MCHC 34.0 (32.0-36.0) g/dL RDW 13.9 (12.0-15.0) % Plt Count 173 (130-450) 10^3/uL MPV 8.3 (7.9-10.8) fL Neut # (Auto) 3.4 (1.5-6.6) 10^3/uL Lymph # (Auto) 1.5 (1.5-3.5) 10^3/uL [place] # (Auto) 0.7 (0.0-1.0) 10^3/uL Eos # (Auto) 0.3 (0.0-0.7) 10^3/uL Baso # (Auto) 0.1 (0.0-0.1) 10^3/uL Absolute Nucleated RBC 0.00 x10^3/uL Nucleated RBC % 0.0 /100WBC Sodium 142 (135-145) mmol/L Potassium 3.5 (3.5-5.0) mmol/L Chloride 112 H (101-111) mmol/L Carbon Dioxide 25 (21-32) mmol/L Anion Gap 5.0 L (6-13) BUN 8 (6-20) mg/dL Creatinine 0.6 (0.4-1.0) mg/dL Estimated GFR (MDRD) 96 (>89) Glucose 104 H (70-100) mg/dL Calcium 7.7 L (8.5-10.3) mg/dL Phosphorus 2.1 L (2.5-4.6) mg/dL Magnesium 1.8 (1.7-2.8) mg/dL Total Bilirubin 0.6 (0.2-1.0) mg/dL AST 25 (10-42) IU/L ALT 12 (10-60) IU/L Alkaline Phosphatase 43 (42-121) IU/L Total Protein 5.3 L (6.7-8.2) g/dL Albumin 2.7 L (3.2-5.5) g/dL Globulin 2.6 (2.1-4.2) g/dL Albumin/Globulin Ratio 1.0 (1.0-2.2) ABX Reporting Has patient been on IV antibiotics over the past 48 hours?: No Assessment/Plan - Problem List (1) Intertrochanteric fracture of right hip Impression: Patient had a mechanical fall at home and has suffered a right mildly displaced and angulated intertrochanteric right femur fracture. Taken to the OR by orthopedic surgery 11/13 for repair of this fracture. POD #3 According to the revised cardiac risk index for preoperative risk the patient's risk of major cardiac event is 0.4%. Currently hip pain controlled. Only hurts when she moves it. Able to stand and walk a few steps but yesterday severe pain in afternoon. Today much better. Plan: PT seeing her and aim for a disposition to SNF by Friday 11/17 . The [place] has authorized 06/01 care for her at home for now and then he will go to [facility] on Friday with her. IV morphine for pain control will keep a close eye on that wound to make sure no bleeding or infection Lovenox for DVT prophylaxis started 11/13 Qualifiers: Encounter type: initial encounter Fracture type: closed Fracture alignment: displaced Qualified Code(s): S72.141A - Displaced intertrochanteric fracture of right femur, initial encounter for closed fracture (2) Hypertension Conclusion/Plan: Patient has history of hypertension. On admit the patient's blood pressure was slightly elevated likely secondary to pain. The patient does use losartan at home for hypertension. Patient will be continued on her home dose of losartan and blood pressure will be monitored. Patient will also be treated for her pain. BP today so far this morning has been 164-166 systolic. BP meds were held 11/13 for a low BP and a Hgb that was down (14>9.1) but not enough to transfuse. Today she is 8.2 gram. Qualifiers: Hypertension type: essential hypertension Qualified Code(s): I10 - Essential (primary) hypertension (3) Hypothyroidism Conclusion/Plan: Patient has a history of hypothyroidism and is on Synthroid at home. We will continue the patient on her home dose of Synthroid and check a TSH in the morning. Qualifiers: Hypothyroidism type: unspecified Qualified Code(s): E03.9 - Hypothyroidism , unspecified
[2017-11-16] MEDS: SODIUM CHLORIDE FLUSH 0.9% 10 ML SYRINGE IVP SCH ×3 (08:33→23:49)
[2017-11-16] MEDS: ENOXAPARIN 40 MG/0.4 ML SYRINGE SUBQ SCH (08:36)
[2017-11-16] MEDS: POLYETHYLENE GLYCOL 3350 17 GM PACKET PO SCH (08:40)
[2017-11-16] MEDS: SENNA 8.6 MG TABLET PO SCH (08:41)
[2017-11-16] MEDS: LOSARTAN 50 MG TABLET PO SCH (08:41)
[2017-11-16] MEDS: DOCUSATE SODIUM 250 MG CAPSULE PO SCH (08:41)
[2017-11-16] MEDS: CHOLECALCIFEROL 1,000 UNIT TABLET PO SCH (08:41)
[2017-11-16] MEDS: FAMOTIDINE 20 MG TABLET PO SCH (08:42)
[2017-11-16] MEDS: OMEGA-3 ACID ETHYL ESTERS 1 GM CAPSULE PO SCH (08:42)
[2017-11-16] MEDS: ASPIRIN 325 MG TABLET PO SCH ×2 (08:42→16:29)
[2017-11-16] MEDS: LACTOBACILLUS RHAMNOSUS GG CAPSULE PO SCH (08:42)
[2017-11-16] MEDS: oxyCOD/ACETAMIN 5 MG/325 MG TABLET PO PRN (10:35)
--- NOTE | 2017-11-16 13:40 | PROVIDER PROGRESS NOTE ---
Subjective - Prog Note Date Prog Note Date: 11/16/17 Prog Note Time: 13:38 - Subjective Pt reports feeling: Improved (Minimal pain. Up on floor) Objective - Vital Signs/Intake & Output Vital Signs: Vital Signs x48h Temp Pulse Resp BP Pulse Ox 11/16/17 12:40 36.9 C 71 14 164/70 H 96 11/16/17 07:54 36.9 C 70 14 166/63 H 98 Intake & Output: Intake & Output 11/13/17 11/14/17 11/15/17 11/16/17 23:59 23:59 23:59 23:59 Intake Total 3446.667 2846.666 4250.000 1451.667 Output Total 1225 1975 1100 951 Balance 2221.667 978.098 7458.000 500.667 - Lab Results Fish Bones: 11/16/17 05:30 11/16/17 05:30 Other Labs: Lab Results x24hrs 11/16/17 11/16/17 Range/Units 05:30 05:30 WBC 6.0 (4.8-10.8) x10^3/uL RBC 2.82 L (4.20-5.40) 10^6/uL Hgb 8.2 L (12.0-16.0) g/dL Hct 24.0 L (37.0-47.0) % MCV 85.2 (81.0-99.0) fL MCH 29.0 (27.0-31.0) pg MCHC 34.0 (32.0-36.0) g/dL RDW 13.9 (12.0-15.0) % Plt Count 173 (130-450) 10^3/uL MPV 8.3 (7.9-10.8) fL Neut # (Auto) 3.4 (1.5-6.6) 10^3/uL Lymph # (Auto) 1.5 (1.5-3.5) 10^3/uL [place] # (Auto) 0.7 (0.0-1.0) 10^3/uL Eos # (Auto) 0.3 (0.0-0.7) 10^3/uL Baso # (Auto) 0.1 (0.0-0.1) 10^3/uL Absolute Nucleated RBC 0.00 x10^3/uL Nucleated RBC % 0.0 /100WBC Sodium 142 (135-145) mmol/L Potassium 3.5 (3.5-5.0) mmol/L Chloride 112 H (101-111) mmol/L Carbon Dioxide 25 (21-32) mmol/L Anion Gap 5.0 L (6-13) BUN 8 (6-20) mg/dL Creatinine 0.6 (0.4-1.0) mg/dL Estimated GFR (MDRD) 96 (>89) Glucose 104 H (70-100) mg/dL Calcium 7.7 L (8.5-10.3) mg/dL Phosphorus 2.1 L (2.5-4.6) mg/dL Magnesium 1.8 (1.7-2.8) mg/dL Total Bilirubin 0.6 (0.2-1.0) mg/dL AST 25 (10-42) IU/L ALT 12 (10-60) IU/L Alkaline Phosphatase 43 (42-121) IU/L Total Protein 5.3 L (6.7-8.2) g/dL Albumin 2.7 L (3.2-5.5) g/dL Globulin 2.6 (2.1-4.2) g/dL Albumin/Globulin Ratio 1.0 (1.0-2.2) - Other Results/Comments Other Results/Comments: EXAM: Dressing intact. Mild pain with hip motion. N/V ok distally Assessment/Plan - Problem List (1) Intertrochanteric fracture of right hip Impression: Satis pot op PLAN: To SNF in AM. Continue PT. Follow up in orthopedic clinic in 2 weeks for XR and alvin out.
[2017-11-16] MEDS ORDERED: ZOLPIDEM 5 MG TABLET PO PRN (23:35)
[2017-11-17] MEDS: oxyCOD/ACETAMIN 5 MG/325 MG TABLET PO PRN ×2 (01:00→05:37)
[2017-11-17 05:53] LABS: BASOPHILS % (AUTO) 0.6 %; EOSINOPHILS # (AUTO) 0.4 10^3/uL (0.0-0.7); EOSINOPHILS % (AUTO) 4.9 %; HGB - HEMOGLOBIN 8.4 g/dL (12.0-16.0); LYMPHOCYTES # (AUTO) 1.8 10^3/uL (1.5-3.5); LYMPHOCYTES % (AUTO) 25.1 %; MEAN CORPUSCULAR HEMOGLOBIN 28.8 pg (27.0-31.0); MEAN CORPUSCULAR HGB CONC 33.8 g/dL (32.0-36.0); MEAN CORPUSCULAR VOLUME 85.2 fL (81.0-99.0); MEAN PLATELET VOLUME 7.9 fL (7.9-10.8); MONOCYTES # (AUTO) 0.7 10^3/uL (0.0-1.0); MONOCYTES % (AUTO) 10.1 %; NEUTROPHILS # (AUTO) 4.3 10^3/uL (1.5-6.6); NEUTROPHILS % (AUTO) 59.3 %; PLT - PLATELET COUNT 233 10^3/uL (130-450); WHITE BLOOD COUNT 7.3 x10^3/uL (4.8-10.8)
[2017-11-17 06:04] LABS: CREATININE 0.7 mg/dL (0.4-1.0); MAGNESIUM 1.9 mg/dL (1.7-2.8); PHOSPHORUS 2.9 mg/dL (2.5-4.6); TOTAL PROTEIN 5.9 g/dL (6.7-8.2)
[2017-11-17] MEDS: LEVOTHYROXINE 100 MCG TABLET PO SCH (07:18)
--- NOTE | 2017-11-17 07:46 | Discharge Plan ---
"Discharge Plan for SNF / [facility]HAEL - DC Plan and Transition Orders Disposition: 03 SNF DC/Xfer Condition: Stable SNF Transition Orders: Admit to: [facility] under the care of Andrade Cummins MD Discharge Diagnosis: 1. Displaced intertrochanteric fracture right femur 2. mechanical fall 3. Essential HTN 4. Hypothyroidism Medicare Certification: I certify that [facility] is medically necessary on a continuing basis for any of the conditions for which she/he is receiving care during hospitalization. Notify PCP of admission and forward orders to primary provider for signature. Weight on admission and weekly. Call PCP immediately if weight increases by 5 pounds or if patient develops dyspnea, chest pain/tightness or edema. House Bowel Program: yes If no BM after 2 days, nurse may give M.O.M. 30ml PO PRN and /or ducolax Supp 1 VA and /or ROSE 250mg P.O., and/or senna 1-2 tabs PO. On day 3 nurse may give repeat above order until residents constipation is resolved. Immunizations: Annual Influenza Vaccine: yes. (between Feb 14 and September 13.) Unless allergy or already given Two-Step PPD: yes per [facility] [id number] or appropriate documentation of approved exceptions Treatments & Other Orders: none Oxygen Orders: none Lab Tests or X-Rays Orders: CBC in 1 week Orthopedic Orders: Remove Sutures/[place] and Comment. Medications: PLEASE REFER TO THE DISCHARGE MEDICATION LIST. Insulin Orders? no Diagnosis: No Diabetes Initiate hypo and hyperglycemia protocols for BG <70 and BG >375. May check BG prn for signs/symptoms of dysglycemia. Frequency of BG checks: [AC/Meal/HS] Basal Insulin: Lantus 100 units / ml inject subq as follows: [] [] Other: [] Correction Insulin: - Select the type of insulin below [Choose: Novolog/Humalog]100 units /ml insulin inject subq per orders indicate below [] LOW DOSE [] MODERATE DOSE [] MODERATE/HIGH DOSE [] HIGH DOSE GB UNITS GB UNITS GB UNITS GB UNITS 61-140 0 UNITS 61-140 0 UNITS 61-140 0 UNITS 61-140 0 UNITS 141-175 1 UNITS 141-175 1 UNITS 141-175 2 UNITS 141-175 3 UNITS 176-225 2 UNITS 176-225 3 UNITS 176-225 4 UNITS 176-225 5 UNITS 226-275 3 UNITS 226-275 5 UNITS 226-275 6 UNITS 226-275 7 UNITS 276-325 4 UNITS 276-325 7 UNITS 276-325 8 UNITS 276-325 9 UNITS 326-375 5 UNITS 326-375 9 UNITS 326-375 10 UNITS 326-375 11 UNITS >375 CONTACT MD >375 CONTACT MD >375 CONTACT MD >375 CONTACT MD Custom Dosing: [Choose: None/Novolog/Humalog] 100 units/ml Insulin inject subq as follows: GB Units 61-140 [] Units 141-175 [] Units 176-225 [] Units 226-275 [] Units 276-325 []Units 326-375 [] Units >375 Contact MD Allergies and Adverse Reactions: Allergies Allergy/AdvReac Type Severity Reaction Status Date / Time Sulfa (Sulfonamide Allergy Edema Verified 11/12/17 20:00 Antibiotics) thimerosal Allergy Edema Verified 11/12/17 20:00 - Medications New Prescriptions: oxyCODONE/ACET 5/325 [Percocet 5 mg/325 mg] 1 tab PO Q4HR PRN #45 tablet PRN Reason: Pain - Diet Type: Geriatric Texture: Regular Liquids: Thin May have monthly special meal: Yes - Therapies | Activity Therapy: Evaluation | Treat if indicated: PT Rehabilitation Potential: Maximize functional status, Return to independent living Activity: Wt Bearing as Tolerated Weight Bearing: Full Weight Assistance Devices: Walker Additional Instructions: Keep hip wound clean and dry. [place] to be removed in 2 weeks by Ortho office with visit for followup. Clean wound daily and cover with xerofoam and tegaderm. Report any change in wound with redness, colored drainage, heat to Ortho immediately."
[2017-11-17 08:00] VITALS: BP 152/56
[2017-11-17] MEDS: POLYETHYLENE GLYCOL 3350 17 GM PACKET PO SCH (09:14)
[2017-11-17] MEDS: SENNA 8.6 MG TABLET PO SCH (09:14)
[2017-11-17] MEDS: FAMOTIDINE 20 MG TABLET PO SCH (09:14)
[2017-11-17] MEDS: ENOXAPARIN 40 MG/0.4 ML SYRINGE SUBQ SCH (09:14)
[2017-11-17] MEDS: OMEGA-3 ACID ETHYL ESTERS 1 GM CAPSULE PO SCH (09:14)
[2017-11-17] MEDS: LACTOBACILLUS RHAMNOSUS GG CAPSULE PO SCH (09:15)
[2017-11-17] MEDS: ASPIRIN 325 MG TABLET PO SCH (09:15)
[2017-11-17] MEDS: LOSARTAN 50 MG TABLET PO SCH (09:15)
[2017-11-17] MEDS: CHOLECALCIFEROL 1,000 UNIT TABLET PO SCH (09:15)
[2017-11-17] MEDS: DOCUSATE SODIUM 250 MG CAPSULE PO SCH (09:15)
[2017-11-17] MEDS: SODIUM CHLORIDE FLUSH 0.9% 10 ML SYRINGE IVP SCH (09:15)
--- NOTE | 2017-11-18 17:10 | DISCHARGE SUMMARY ---
Physician: Cuca Cabrera MD DATE OF ADMISSION: 11/12/2017 DATE OF DISCHARGE: 11/17/2017 PRIMARY CARE PROVIDER: Andrade Cummins M.D. DISCHARGE DIAGNOSES: 1. Intertrochanteric fracture of right hip. 2. Mechanical fall. 3. Hypertension. 4. Hypothyroidism. MEDICATIONS AT TIME OF DISCHARGE TO ASSISTED FACILITY: 1. Tylenol 650 mg p.o. every 6 hours p.r.n. 2. Percocet 5/325 one tablet every 4 hours as needed. 3. Aspirin 325 mg p.o. b.i.d. for the next 2 weeks. 4. Vitamin D 1000 units p.o. daily. 5. Glucosamine with D3 one tablet every day. 6. Synthroid 100 mcg daily. 7. Losartan 50 mg daily. 8. Theragran-M one tablet daily. PRINCIPAL PROCEDURES: 1. Cervical spine CT without evidence of acute fracture. Degenerative changes noted. She has a left upper lobe medial opacification measuring 0.9 x 1.5 cm. She will need a followup CT. 2. Chest x-ray without focal opacities, no pleural effusion. 3. Head CT with generalized age-related cortical atrophic changes. A right maxillary sinus that had air fluid levels with mucosal thickening 4. Acute on chronic right maxillary sinusitis to be present. A mildly depressed right nasal ala bone fracture, age indeterminate. 5. Hip pelvis x-ray with a mildly displaced and angulated intertrochanteric right femur fracture. 6. Ankle x-ray without acute osseous abnormality. 7. Closed reduction and short Intertan nailing of right hip fracture 11/13/2017. HOSPITAL COURSE: The patient is an 82-year-old female that lives in her own home. She has high blood pressure, hypothyroidism and a history of cervical cancer who had a hysterectomy 12 years ago. She has had recurrence of her disease and has had radiation and chemotherapy and is cancer free. She lives in her own home and is currently taking care of her who is in hospice. He has end-stage dementia and Parkinson's disease. She is his primary caregiver. She was in the kitchen with slippers on and she thinks she lost her balance and fell to the floor on her right hip. There was no loss of consciousness, but she may have hit her head on the edge of the counter on the way down. She had severe hip pain on her right side and could not get up. She scooted along the floor and called 911 on her cell phone. Preoperative evaluation does not show her to have any antecedent infection, destabilizing cardiac illness. In the emergency room, she was bradycardic, troponins were negative. Urinalysis was negative. X-ray evaluation was done as above and the above procedures. She was admitted to the hospitalist service and consulted on by Orthopedics. She was taken to the operating room the day after admission. Her main concern was her being left alone at home. Hospice, and [place] benefits and care providers were hobbled together so that he would not be alone while she was in the hospital. She had no postoperative complications other than some mild pain that slowed her mobility and her ability to progress with physical therapy. During her stay, her blood pressure was stable. Hypothyroidism was stable. She did not have significant acute blood loss, anemia during surgery. DISCHARGE EXAMINATION: She was felt stable enough to be discharged to detention facility. Her will be coming to the nursing facility with her and staying in her room as well. Discharge temperature was 37, pulse 62, blood pressure 152/56, respirations 14 and 95% on room air. She is an exceedingly pleasant, tall, slender, elderly female who looks her stated age. Evidence of fatigue with dark circles under her eyes and she worries about her and had sleep deprivation here in the hospital. Neck: Supple. Lungs: Completely clear to auscultation and percussion. PMI is normally placed with a regular rate and rhythm. Abdomen: Soft, nontender, benign. She is able to sit, stand or transfer and do some light touch weightbearing on the affected hip side. She is still requiring a walker, 2-person assist. Physical therapy evaluated her and feels that she is a candidate for rehabilitation. Plan is for her to return to her own home with the help of hospice and her friends to take care of her . Greater than 30 minutes was spent in coordinating discharge. cc: Andrade Cummins M.D. TD: 11/18/2017 00:02
== END 2017-11-17 10:59 | DRG 482 ==
LOC: EDUNIT# → ED 19:20 → MS2 21:17
PROVIDERS: ADMIT Internal Medicine; ATTEND Specialist
PROC: 0QS634Z Reposition Right Upper Femur with Internal Fixation Device, Percutaneous Approach (ICD-10-PCS; principal; 2017-11-13 07:30)
DX: S72.141A Displaced intertrochanteric fracture of right femur, initial encounter for closed fracture (principal); S09.90XA Unspecified injury of head, initial encounter; S00.01XA Abrasion of scalp, initial encounter; W01.0XXA Fall on same level from slipping, tripping and stumbling without subsequent striking against object, initial encounter; I10 Essential (primary) hypertension; E03.9 Hypothyroidism, unspecified; R94.2 Abnormal results of pulmonary function studies; M19.90 Unspecified osteoarthritis, unspecified site; J01.01 Acute recurrent maxillary sinusitis; M25.571 Pain in right ankle and joints of right foot; M81.0 Age-related osteoporosis without current pathological fracture; M50.31 Other cervical disc degeneration, high cervical region; M47.892 Other spondylosis, cervical region; Z66 Do not resuscitate; Y92.000 Kitchen of unspecified non-institutional (private) residence as the place of occurrence of the external cause; Z79.899 Other long term (current) drug therapy; Z85.41 Personal history of malignant neoplasm of cervix uteri; Z90.710 Acquired absence of both cervix and uterus; Z87.828 Personal history of other (healed) physical injury and trauma
CPT/HCPCS: 36415; 70450; 71045; 72125; 80053; 81001; 81003; 83690; 83735; 84100; 84443; 84484; 85014; 85018; 85025; 85610; 86850; 86900; 86901; 87086; 93005; 96374; 96376; 99283; 99284

== ENCOUNTER 2017-11-24 08:00 | Outpatient (CLI) | payer MEDICARE, OTHER ==
[2017-11-24 16:50] LABS: BASOPHILS # (AUTO) 0.1 10^3/uL (0.0-0.1); EOSINOPHILS # (AUTO) 0.3 10^3/uL (0.0-0.7); HGB - HEMOGLOBIN 10.3 g/dL (12.0-16.0); LYMPHOCYTES # (AUTO) 1.2 10^3/uL (1.5-3.5); MEAN CORPUSCULAR VOLUME 89.2 fL (81.0-99.0)
[2017-11-24 16:55] LABS: BASOPHILS % (AUTO) 1.6 %; EOSINOPHILS % (AUTO) 3.5 %; LYMPHOCYTES % (AUTO) 14.9 %; MEAN CORPUSCULAR HEMOGLOBIN 29.5 pg (27.0-31.0); MEAN CORPUSCULAR HGB CONC 33.1 g/dL (32.0-36.0); MEAN PLATELET VOLUME 8.2 fL (7.9-10.8); MONOCYTES # (AUTO) 0.8 10^3/uL (0.0-1.0); MONOCYTES % (AUTO) 10.4 %; NEUTROPHILS # (AUTO) 5.7 10^3/uL (1.5-6.6); NEUTROPHILS % (AUTO) 69.6 %; PLT - PLATELET COUNT 516 10^3/uL (130-450); RED BLOOD COUNT 3.49 10^6/uL (4.20-5.40); RED CELL DISTRIBUTION WIDTH 15.3 % (12.0-15.0); WHITE BLOOD COUNT 8.1 x10^3/uL (4.8-10.8)
== END 2017-11-24 08:01 | disposition home or self-care (01) ==
LOC: LAB.R 08:00
DX: R68.89 Other general symptoms and signs (principal); I10 Essential (primary) hypertension
CPT/HCPCS: 85025

== ENCOUNTER 2017-12-04 11:38 | Outpatient (CLI) | payer MEDICARE, OTHER ==
--- NOTE | 2017-12-04 12:59 | Ultrasound Report ---
Procedure Date: 12/04/2017 Accession Number: [id number] / [id number] Procedure: US - Duplex Ext Veins Right CPT Code: FULL RESULT: EXAM: Duplex Ext Veins Right DATE: 12/04/2017 12:34 PM CLINICAL HISTORY: NONDISPLACED INTERTROCHANTERIC FRACTURE OF RIGHT HIP WITH LEG SWELLING COMPARISON: None. TECHNIQUE: Real-time sonographic vascular imaging was performed by the alterations sewer through the lower extremity utilizing both color-flow and Doppler spectral analysis. Multiple hardware supplies sales representative static images were saved for review. FINDINGS: Right leg Common Femoral Vein (CFV): Normal. Superficial Femoral Vein (SFV) Prox: Normal. Superficial Femoral Vein (SFV) Mid: Normal. Superficial Femoral Vein (SFV) Dist: Normal. Popliteal Vein: Normal. Posterior Tibial Veins: Normal. Peroneal Veins: Normal. Other: None. IMPRESSION: No evidence for deep venous thrombosis right lower extremity. RADIA
== END 2017-12-04 11:39 | disposition home or self-care (01) ==
LOC: DI 11:38
PROVIDERS: ATTEND Orthopaedic Surgery
DX: S72.14 Intertrochanteric fracture of femur (principal); I80.209 Phlebitis and thrombophlebitis of unspecified deep vessels of unspecified lower extremity

== ENCOUNTER 2018-01-08 12:48 | Outpatient (CLI) | payer MEDICARE, OTHER ==
--- NOTE | 2018-01-08 13:40 | DEXA Report ---
Procedure Date: 01/08/2018 Accession Number: [id number] / [id number] Procedure: DEX - Dexa Spine and/or Hip CPT Code: FULL RESULT: EXAM: Dexa Spine and/or Hip DATE: 01/08/2018 1:28 PM CLINICAL HISTORY: OSTEOPOROSIS, POSTMENOPAUSAL STATUS TECHNIQUE: Dual energy x-ray absorptiometry (DXA) was performed on a Augur System. Regions measured are the AP Spine, femoral neck, and if needed forearm. COMPARISON: None. In accordance with the International Society for Clinical Densitometry (ISCD) guidelines, data from previous exams may be reanalyzed using current recommendations and techniques. This is done to allow a more accurate basis for comparison with the current study. FINDINGS: The data for the lumbar spine is as follows: BMD (g/cm/cm) T-SCORE Z-SCORE REGION L1 0.921 -1.7 0.5 L2 0.954 -2.0 0.2 L3 1.137 -0.5 1.7 L4 1.330 1.1 3.3 TOTAL 1.104 -0.6 1.6 NOTE: All evaluable vertebrae are used for classification The data for the hip is as follows: BMD (g/cm/cm) T-SCORE Z-SCORE REGION Neck 0.632 -2.9 -0.4 TOTAL 0.577 -3.4 -1.0 NOTE: The femoral neck or total proximal femur, whichever is lowest, is used for classification. IMPRESSION: THE WHO CLASSIFICATION BASED ON THE INTERNATIONAL REFERENCE STANDARD IS OSTEOPOROSIS. THE FRACTURE RISK IS HIGH. RECOMMENDATION: Patients with diagnosis of osteoporosis or osteopenia should have regular bone mineral density assessment. For those eligible for Medicare, routine testing is allowed once every 2 years. Testing frequency can be increased for patients who have rapidly progressing disease or for those who are receiving medical therapy to restore bone mass. COMMENT: World Health Organization (WHO) definitions for osteoporosis and osteopenia: NORMAL BMD: T-score at -1.0 or higher, fracture risk is low OSTEOPENIA BMD: T-score between -1.0 and -2.5, fracture risk is increased. OSTEOPOROSIS BMD: T-score at -2.5 or lower, fracture risk is high. National Osteoporosis Foundation recommends: 1. Obtain adequate dietary calcium (at least 1200 mg per day) and vitamin D (400-800 international units per day). 2. Participate, as appropriate, in regular weightbearing and muscle-strengthening exercise. 3. Avoid tobacco use and reduce alcohol and caffeine intake. 4. For more detailed information see the website at www.NOF.org.
== END 2018-01-08 12:49 | disposition home or self-care (01) ==
LOC: DI 12:48
PROVIDERS: ATTEND Family Medicine
DX: Z13.820 Encounter for screening for osteoporosis (principal); M81.0 Age-related osteoporosis without current pathological fracture; Z78.0 Asymptomatic menopausal state
CPT/HCPCS: 77080

== ENCOUNTER 2020-06-02 16:07 | Outpatient (CLI) | payer MEDICARE, OTHER | END 2020-06-02 16:08 | disposition home or self-care (01) | LOC: COV 16:07 | PROVIDERS: ATTEND Internal Medicine | DX: Z01.812 Encounter for preprocedural laboratory examination (principal); Z20.828 Contact with and (suspected) exposure to other viral communicable diseases; R91.8 Other nonspecific abnormal finding of lung field ==

== ENCOUNTER 2020-08-14 14:45 | Outpatient (CLI) | payer MEDICARE, OTHER ==
--- NOTE | 2020-08-14 18:16 | CONSULTATION NOTE ---
Palliative Care Consultation - Referral Referring Provider: Kayy Moore-Mustapha/Dr. 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 She is currently receiving palliative treatment of Pacltaxel, bevacizumab, and carboplatinum, has just completed her third treatment. She has been receiving her care over in [place], but will be transferring her care to Dr. Geri Montalvo, whom she had treatment and care from previously. I am seeing her in a past off from palliative care, for her tumor. She has had worsening tumor in the context of compressing her nerve radiating to her neck and shoulders, and has been opioid intolerant. Currently she has been noting improvement, not only with medication, but suspect with response to her treatment. She is currently receiving gabapentin 600 mg at at bedtime, and 300 mg a.m. and noon. She has been using some cyclobenzaprine, as does have a spasm component particularly as it builds overnight. She has tried opioids without any relief and with severe side effects of restlessness and agitation. She was started on dexamethasone 6 mg, and this seems to have helped. Her most effective intervention, has been topical CBD and massage, improvement in her pain is evidenced by needing only 2-3 x a day down from 6-7. And be has been helping her with this. She has been doing better with her sleep as well, which has been a long-term problem for her. She presented in May with progressive cough and severe shortness of breath, treated with antibiotics, tested multiple times for COVED, without any improvement, she eceived a CT scan, where was found to have a lobulated mass in the left lower lobe, and multiple enhancing masses seen in the pericardial fat at the apex of her left ventricle. She was having significant hypertension, as well as shortness of breath, chest pain and radiating pain through her neck shoulder and back area.She is experiencing some functional decline, with activity tolerance radiated to her dyspnea, as well as frustration with some cognitive decline and forgetfulness. Her em friend Kyle, has her living in her apartment to her house to be able to over see her medications and helps advocated for her care. Originally diagnosed with a history of stage I grade 2 endometrial carcinoma in 2006, for which she had a hysterectomy. She had a recurrence with pain and bleeding in September 2013, where she received vaginal cuff radiation followed by chemotherapy with carboplatinum and Taxol until April 2014. She does have some peripheral neuropathy already from her previous treatment. Medical/Surgical History - Past Medical History Cardiovascular: reports: Hypertension Respiratory: reports: Shortness of breath Neuro: reports: Headache/migraine, Fainting, Other (mild STM issues) Endocrine/Autoimmune: reports: HyPOthyroidism GI: reports: Hemorrhoids CARTON MAKER: reports: Other (Cervical cancer status post hysterectomy with recurrence 6 years later status post radiation and chemotherapy; now recurrent 06/04) : reports: Incontinence, Frequency HEENT: reports: Dental implants Psych: reports: Anxiety, Claustrophobia Musculoskeletal: reports: Osteoarthritis, Osteoporosis, Osteopenia, Other (PMR) Derm: reports: None MRSA Hx?: No - Past Surgical History General: reports: Other (portacath placement 06/04) Ortho: reports: Other (right hip repair of fx 2017) /CARTON MAKER: reports: Hysterectomy - Substance History Use: Uses substance without health or social issues: NONE Social History - Living Situation Living arrangement: Other Living Situation: With friend(s) Support System: 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 She lives in a [place] neighborhood, where has many good friends, including KYLE, her friend who is having her stay with her and providing oversight and support. She does have a daughter, as well as a new great great granddaughter. She has a son who 10 months after her of Parkinson's as well. Family History - Family History Family History: Mother: , Father: , Brother: , Cancer (leukemia) Family History Comment/Other: patient lived [place]. Medications/Allergies - Medications Home Medications: Ambulatory Orders Medication Instructions Recorded Confirmed Aspirin [Cliff] 325 mg PO BIDWM tablet 11/17/17 08/15/20 Acetaminophen [Tylenol] 1,000 mg PO TID PRN 08/15/20 08/15/20 Amlodipine Besylate [Norvasc] 10 mg PO DAILY 08/15/20 08/15/20 Cyclobenzaprine [Flexeril] 10 mg PO TID PRN 08/15/20 08/15/20 Dexamethasone [Decadron] 6 mg PO DAILY 08/15/20 08/15/20 Gabapentin [Gralise] 300 mg PO .300 AM 1400 600 PM 08/15/20 08/15/20 Levothyroxine [Synthroid] 112 mcg PO DAILY 08/15/20 08/15/20 Losartan [Cozaar] 100 mg PO DAILY 08/15/20 08/15/20 Metoprolol Succinate [Toprol Xl] 100 mg PO DAILY 08/15/20 08/15/20 Prevagen 1 tab PO DAILY 08/15/20 - Allergies Allergies/Adverse Reactions: Allergies Allergy/AdvReac Type Severity Reaction Status Date / Time Sulfa (Sulfonamide Allergy Edema Verified 11/12/17 20:00 Antibiotics) thimerosal Allergy Edema Verified 11/12/17 20:00 oxycodone AdvReac Hallucinati Verified 08/15/20 16:16 ons Review of Systems - Constitutional Constitutional: reports: Fatigue, Weight loss (112). denies: Fever, Chills - Eyes Eyes: reports: Vision loss, Corrective lenses - Ears, Nose & Throat Ears, Nose & Throat: reports: Hearing loss, Hearing aids, Dry mouth. denies: Mouth lesions - Cardiovascular Cardiovascular: reports: Lightheadedness, Exertional dyspnea, Decr. exercise tolerance. denies: Edema - Respiratory Respiratory: reports: Cough, SOB with exertion. denies: SOB at rest - Gastrointestinal Gastrointestinal: reports: Early satiety. denies: Constipation, Nausea - Genitourinary Genitourinary: reports: Incontinence (intermittent) - Musculoskeletal Musculoskeletal: reports: Stiffness, Muscle weakness, Assistive devices (using rolling walker) - Integumentary Integumentary: reports: Dryness, Hair changes (alopecia) - Neurological Neurological: reports: General weakness, Numbness (peripheral neuropathy both pain/numbness), Memory problems, Abnormal gait - Psychiatric Psychiatric: reports: Anxiety - Endocrine Endocrine: reports: Hypothyroidism - All Other Systems All Other Systems: reports: Reviewed and negative Physical Exam - Vital Signs Temperature: 97.6 C Pulse Rate: 90 Respiratory Rate: 18 O2 Saturation: 99 Blood Pressure: 128/74 - Physical Exam General Appearance: positive: No acute distress, Alert Eyes Bilateral: positive: Normal inspection ENT: negative: Oral lesions Neck: positive: Trachea midline Cardiovascular: positive: Regular rate & rhythm Respiratory: positive: No respiratory distress, Other (decreased LLL). negative: Wheezes Abdomen: positive: Non-tender, Soft Skin: positive: Pallor, Dryness, Other (alopecia) Extremities: positive: No pedal edema Neurologic/Psychiatric: positive: Oriented x3, Mood/affect nml, Weakness Palliative Care - POLST Patient has POLST: Yes POLST Status: DNR, Selective Treatment Pain: Pain improved, Location (back and neck), Severity (mild-moderate), Comment (Patient feels like her tumor "is shrinking" as her breathing and pain has improved.) Tiredness/Fatigue: Moderate (4-6) Drowsiness/Sedation: Moderate (4-6) Nausea: None Anorexia: Mild (1-3) Dyspnea: Moderate (4-6) (improved) Depression: Mild (1-3) Anxiety: Mild (1-3) Feelings of wellbeing/Perceived Quality of Life: Good, Acceptable Sleep: Sleeps well, Sleep improved Constipation: No Performance Status: Patient's activity tolerance has improved with decreasing her breathlessness. Though she is not back to baseline. She is able to ambulate short distances with her rolling walker. She is still able to manage her ADLs, - Palliative Care Discussion: Patient has limited understanding of her current illness and treatment plan, she is hoping to understand a little bit better after meeting with Dr. Montalvo. Her current understanding is she has 6 treatments, though I suspect this is [address] scan. She is to meet with Dr. Montalvo next week. She is very pragmatic, we did complete her POLST with DN AR, and selective treatments. She would accept treatment for reversible conditions at this point in time, we did talk about DPOA. Currently she has her sister and DIL Patricia Pickard and Kaveh Pickard, we did discuss possibly her friend who knows her better and has been involved in her care. Left DPOA form if wants to change. We did discuss about end-of-life, she does have experience very positive with hospice with her had Parkinson's, and we want that for herself. Her friend Kyle says that she and her friends are very committed to giving their em friend what she wants for her end-of-life care. Impression and Recommendations - Palliative Care Impression: This is a em 85-year-old woman who has recurrent uterine adenocarcinoma with left lung mets, as well as associated pericardial masses and adenopathy. She has had some improvement in relief of pain, breathlessness, with now completing her third treatment. She does present today with some dizziness and lightheadedness, her pain is improved overall, she has had some functional and cognitive decline. She will be starting treatment at the [facility], and reestablishing with Dr. Geri Montalvo. Palliative care to follow alongside for pain and symptom management Recommendations/Counseling Done: 1. Pain of neoplastic origin. Patient with known tumor compression, has been having improved pain, suspect related to tumor shrinkage, as well as titration of pain medications. She is currently on gabapentin 300 mg a.m., late afternoon, bedtime. She has been using cyclobenzaprine 10 mg, given her dizziness and gait instability, requested she decrease her daytime on. Will make changes slowly, patient may also be able to titrate off, as well as decrease gabapentin.Encouraged to continue the CBD, we did discuss using oral Gummies, counseling provided regarding how to trial these safely. Reviewed palliative care will take over pain medications, continue with her other medications with primary care provider. Contact information reviewed 2. Steroid use. Patient currently on dexamethasone 6 mg, for inflammatory component of her pain. She is improving, has help her appetite as well as her mood. Discussed given she is improving, may want to start taper, will not make any further changes today, but will continue to have conversation as this is not a good long-term solution. Acknowledges understanding. She has both 6 mg and 4 mg tablets. 3. Weight loss. Patient has had improved anorexia on the dexamethasone, patient would most likely benefit long-term on low-dose, but will continue to titrate accordingly. She is doing better with eating and drinking, and may normalize as she has better pain control and able to titrate back on some of her medications. 4. Hypertension. Patient had escalating hypertension, suspect related to pericardial masses and escalating pain. Requested patient given increase in her hypertensive meds, check her blood pressure several times a week, will continue to monitor and hopefully be able to titrate back to her baseline dosing. 5. Generalized weakness. Patient is at high risk for falls, and commendation with weakness, dizziness, and peripheral neuropathy. We will try and titrate medications that are adding to her dizziness back, as well as encourage her continue use her Rollator for safety. Patient is anxious to get back to her activity, she is taking frequent walks, she would like to return to swimming if she is feeling better come spring. Counseling provided and balancing fatigue level and activity. 6. Advanced care planning. Patient had completed POLST at [place], unable to find copy. Will just make new 1, completed, also long discussion regarding DPOA. Counseling provided regarding the continuum of care as far as role of palliative care and continuum into hospice. Patient may benefit from palliative care child welfare social worker for long-term planning 105 minutes with greater than 50% provided in counseling regarding pain and symptom management, anticipatory guidance, disease education, role of palliative care, completion of POLST. Plan is to follow-up end of week after her oncology visit, and see patient with next chemo treatment at [facility]
== END 2020-08-14 14:46 | disposition home or self-care (01) ==
LOC: PC 14:45
PROVIDERS: ATTEND Nurse Practitioner Adult Health
DX: Z51.5 Encounter for palliative care (principal); G89.3 Neoplasm related pain (acute) (chronic); C55 Malignant neoplasm of uterus, part unspecified; C78.02 Secondary malignant neoplasm of left lung; R63.4 Abnormal weight loss; I10 Essential (primary) hypertension; R53.1 Weakness; G62.0 Drug-induced polyneuropathy; T45.1X5D Adverse effect of antineoplastic and immunosuppressive drugs, subsequent encounter; Z91.81 History of falling; Z66 Do not resuscitate
CPT/HCPCS: 99345

== ENCOUNTER 2020-08-23 13:10 | Outpatient (CLI) | payer MEDICARE, OTHER ==
--- NOTE | 2020-08-23 20:27 | CONSULTATION NOTE ---
Palliative Care Follow Up - Referral Referring Provider: Kayy CONLEY/Dr. Geir Montalvo (transitioning care) Time of Visit: [id number] Referral setting: Home Referral Reason: Pain of neoplastic Origin/Met Uterine CA/oral candidasis - Information Sources Records reviewed: Previous records reviewed History/Review of Systems obtained from: Patient, Friend (Kyle Pulliam present) Exam limitations: No limitations - History of Present Illness Update Brief HPI Update: This is a em 85-year-old woman who is known recurrent uterine adenocarcinoma with lung mets. She is currently receiving paclitaxel, Bevacizumab and carboplatinum. She is completed her third round on 08/11, and is due for next treatment 09/01. She is transferring care to Dr. Geri Montalvo whom she had treatment of care from previously. I am accepting transfer from the [facility] palliative care team, for treatment of her pain. 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 She originally had severe pain and pressure that radiated through her chest, neck and down her back. She has been having improved pain and symptoms with completion of her treatment thus far, with decreased breathlessness, as well as better able to tolerate activity. She met with Dr. Montalvo yesterday, and was very pleased to reconnect. Her understanding is after she completes her 6 cycles of her chemotherapy, she may be a candidate for immunotherapy. Pain patient's pain continues to improve, she rates it 2 out of 10, she has decreased her cyclobenzaprine down to half bed at night, without any worsening of her pain. She is using the acetaminophen only as needed, most often in the evening when she has more fatigue. She would like to titrate off any medications that are adding to her fuzziness. She is on gabapentin 300 mg a.m. late afternoon and 600 mg at bedtime. She is still getting evening massages with the CBD oil to her neck back area with relief prior to bed. She is also still on dexamethasone 6 mg, unfortunately today she presents with oral candidiasis. She is eating and drinking well, has not had any persistent nausea, her energy is improving, recommended we start focusing on a taper regarding this medication. Given this is not something we want to continue long-term particularly of her pain has improved. Past Medical History: Original diagnosis was history of stage I grade 2 endometrial carcinoma 2016, for which she had a hysterectomy. She had recurrence with pain and bleeding September 2013, where she received vaginal cuff radiation followed by chemotherapy and carboplatinum and Taxol until April 2014. 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 She has been living by herself, but has a house with multiple stairs. She has em good friends including KYLE her friend who is having her stay in the apartment in the floor level of her house. She is helping her coordinate appointments, overseeing her medications, and providing both emotional and assistance as needed. Medications/Allergies - Medications Home Medications: Ambulatory Orders Medication Instructions Recorded Confirmed Acetaminophen [Tylenol] 1,000 mg PO TID PRN 08/15/20 08/24/20 Amlodipine Besylate [Norvasc] 10 mg PO DAILY 08/15/20 08/24/20 Cyclobenzaprine [Flexeril] 5 mg PO QPM PRN 08/15/20 08/24/20 Dexamethasone [Decadron] 4 mg PO DAILY 08/15/20 08/24/20 Gabapentin [Gralise] 300 mg PO .300 AM 1400 600 PM 08/15/20 08/24/20 Levothyroxine [Synthroid] 112 mcg PO DAILY 08/15/20 08/24/20 Losartan [Cozaar] 100 mg PO DAILY 08/15/20 08/24/20 Metoprolol Succinate [Toprol Xl] 100 mg PO DAILY 08/15/20 08/24/20 Prevagen 1 tab PO DAILY 08/15/20 08/24/20 Nystatin [Mycostatin] 5 ml PO QID MDD 7 days 08/24/20 08/24/20 Ondansetron [Ondansetron Odt] 8 mg PO Q8HR PRN 08/24/20 08/24/20 Senna [Senokot] 1 - 2 tab PO DAILY PRN 08/24/20 08/24/20 - Allergies Allergies/Adverse Reactions: Allergies Allergy/AdvReac Type Severity Reaction Status Date / Time Sulfa (Sulfonamide Allergy Edema Verified 08/23/20 07:46 Antibiotics) thimerosal Allergy Edema Verified 08/23/20 07:46 oxycodone AdvReac Hallucinati Verified 08/23/20 07:46 ons tramadol AdvReac Anxiety Verified 08/24/20 05:15 Review of Systems - Constitutional Constitutional: reports: Fatigue, Weight gain (112 to 113.3; eating better). denies: Fever, Chills - Eyes Eyes: reports: Vision loss, Corrective lenses - Ears, Nose & Throat Ears, Nose & Throat: reports: Hearing loss, Hearing aids, Mouth lesions (uncomf ortable, on exam oral candidiasis), Dry mouth - Cardiovascular Cardiovascular: reports: Lightheadedness (improving), Exertional dyspnea, Decr. exercise tolerance. denies: Edema - Respiratory Respiratory: reports: Cough, SOB with exertion. denies: SOB at rest - Gastrointestinal Gastrointestinal: reports: Early satiety, Good appetite (improving). denies: Constipation, Nausea - Genitourinary Genitourinary: reports: Incontinence (intermittent) - Musculoskeletal Musculoskeletal: reports: Stiffness, Muscle weakness, Assistive devices (using rolling walker) - Integumentary Integumentary: reports: Dryness, Hair changes (alopecia) - Neurological Neurological: reports: General weakness, Numbness (peripheral neuropathy both p ain/numbness hands and fingers), Memory problems (feels is clearing some), Abnormal gait - Psychiatric Psychiatric: reports: Anxiety - Endocrine Endocrine: reports: Hypothyroidism - All Other Systems All Other Systems: reports: Reviewed and negative Physical Exam - Vital Signs Temperature: 97.5 C Pulse Rate: 65 Respiratory Rate: 16 O2 Saturation: 98 Blood Pressure: 148/70 - Physical Exam General Appearance: positive: No acute distress, Alert Eyes Bilateral: positive: Normal inspection ENT: positive: Pharyngeal erythema, Oral lesions (oral candidiasis superimposed on mucositis;), Other (hoarseness improved this week) Neck: positive: Trachea midline Cardiovascular: positive: Irregularly irregular Respiratory: positive: No respiratory distress Abdomen: positive: Non-tender, Soft Skin: positive: Pallor, Dryness, Other (alopecia) Extremities: positive: No pedal edema, Other (gait slightly ataxic) Neurologic/Psychiatric: positive: Oriented x3, Mood/affect nml, Weakness Palliative Care - POLST Patient has POLST: Yes POLST Status: DNR, Selective Treatment Pain: Pain improved, Location (chest/back/neck), Severity (mild-moderate) Tiredness/Fatigue: Moderate (4-6) (worsens by end of day) Drowsiness/Sedation: Comment (difficulty sleeping last night) Nausea: None Anorexia: None Dyspnea: Moderate (4-6) (improving) Depression: None Anxiety: Mild (1-3) Feelings of wellbeing/Perceived Quality of Life: Good, Improved Sleep: Variable sleep pattern Constipation: No Performance Status: Patient is able to manage her ADLs, she does have assistance and supervision from her friends if needed. She uses her walker for support and balance. She is trying to increase her activity and endurance slowly. She is limited mostly by her dyspnea and lower extremity weakness. - Palliative Care Discussion: Patient felt better after her meeting with new oncologist, her understanding is there may be further treatment after her 6 cycles including immunotherapy. She is feeling quite encouraged overall with this improvement of her symptoms and she has initiating here to the mat. She dane very pragmatic and staying very much in the moment. Her friends are quite supportive and looking ways to help best support her. Her sister is coming to visit this weekend as well, so is feeling very positive and blessed with the support she has. We did complete her POLST with DNR and selective treatments last time, will revisit DPOA if wants to change at this point in time it is her sister and son-in-law. Impression and Recommendations - Palliative Care Impression: This is a em 85-year-old woman who has recurrent uterine adenocarcinoma with lung mets and mediastinal mass. She continues to have improvement with her pain, breathlessness, and activity tolerance. She has an improved with her dizzyness with decreasing cyclobenzaprine. She presents today with oral candidiasis, and mouth discomfort. She has met with Dr. Monatlvo, is looking forward to transitioning her care and treatment to the [facility]. Palliative care continue to provide support for pain and symptom management and anticipatory guidance. Recommendations/Counseling Done: 1. Pain of neoplastic origin. Patient with known tumor compression mediastinum and lung, has had improved pain, suspect related to tumor shrinkage as well as titration of pain medications. She is currently on gabapentin 100 mg a.m., 300 mg late afternoon, and 600 mg at bedtime. She has decreased her cyclobenzaprine down to 5 mg at bedtime only, with decreased dizziness and increased clarity. 2. Steroid use. Patient currently on dexamethasone 6 mg, for inflammatory component of her pain. Given she presents today with oral candidiasis, will continue to titrate, she does have 4 mg tabs will trade out to 4 mg daily. Counseling provided regarding long-term use, will continue to titrate down though has been helpful for energy, pain, and appetite. She is improving overall. 3. Oral candidiasis. Patient does present with dry uncomfortable mouth, on examination does have some mild mucositis, but superimposed oral candidiasis. We will go ahead and order nystatin 5 mils 4 times daily for 1 week. Counseling provided regarding proper use and written instructions provided. 4. Weight loss. Patient's anorexia has improved on dexamethasone, may benefit from long-term low dose but will continue to titrate accordingly. She is doing better with eating and drinking, and has had a small weight gain over this last week. She is supplementing her diet with high-calorie foods, and doing well with her ice cream. 5. Hypertension. Patient has had escalating hypertension, suspect related both to her tumor burden, as well as her Avastin. Reiterated given her increase in hypertensive meds, to check her blood pressure several times a week, will continue to monitor with hope to be able to titrate back to her baseline dosing at some point. 6. Generalized weakness. Patient remains at high risk for falls, with weakness, dizziness, and peripheral neuropathy/balance issues. We will continue to try and titrate medications back to minimize dizziness. Patient is using he r walker and Rollator for safety. Counseling provided regarding energy conservation as well as progressive ambulation. 7. Metastatic uterine cancer. She will be transitioning her care, she is to r eceive a CT scan per oncology report to check on her current progress. Her understanding that she will receive another and possibly be a candidate for immunotherapy. She is quite pleased there is a further long-term plan. 8. Advanced care planning. POLST was completed at last visit with DN AR and selective treatments. Continue to explore DPOA, and role of palliative care reviewed again. Patient may benefit from palliative care psych social worker for long-term planning when available. 60 minutes with greater than 50% of this done in counseling regarding pain and symptom management, coordination of care, and anticipatory guidance.
== END 2020-08-23 13:11 | disposition home or self-care (01) ==
LOC: PC 13:10
PROVIDERS: ATTEND Nurse Practitioner Adult Health
DX: Z51.5 Encounter for palliative care (principal); G89.3 Neoplasm related pain (acute) (chronic); C55 Malignant neoplasm of uterus, part unspecified; C78.00 Secondary malignant neoplasm of unspecified lung; B37.0 Candidal stomatitis; R63.0 Anorexia; R63.4 Abnormal weight loss; I10 Essential (primary) hypertension; R53.1 Weakness; R42 Dizziness and giddiness; G62.9 Polyneuropathy, unspecified; Z79.899 Other long term (current) drug therapy; Z66 Do not resuscitate
CPT/HCPCS: 99350

== ENCOUNTER 2020-08-30 14:49 | Outpatient (CLI) | payer MEDICARE, OTHER ==
[2020-08-30 20:01] LABS: BASOPHILS # (AUTO) 0.1 10^3/uL (0.0-0.1); BASOPHILS % (AUTO) 0.7 %; HCT - HEMATOCRIT 44.1 % (37.0-47.0); HGB - HEMOGLOBIN 14.2 g/dL (12.0-16.0); LYMPHOCYTES # (AUTO) 1.3 10^3/uL (1.5-3.5); LYMPHOCYTES % (AUTO) 12.3 %; MEAN CORPUSCULAR HEMOGLOBIN 30.6 pg (27.0-31.0); MEAN CORPUSCULAR HGB CONC 32.2 g/dL (32.0-36.0); MEAN PLATELET VOLUME 9.2 fL (7.9-10.8); MONOCYTES # (AUTO) 0.5 10^3/uL (0.0-1.0); MONOCYTES % (AUTO) 4.6 %; NEUTROPHILS # (AUTO) 7.9 10^3/uL (1.5-6.6); NEUTROPHILS % (AUTO) 75.1 %; NRBC ABSOLUTE COUNT (AUTO) 0.02 x10^3/uL; NUCLEATED RED BLOOD CELLS AUTO 0.2 /100WBC; PLT - PLATELET COUNT 195 10^3/uL (130-450); RED BLOOD COUNT 4.64 10^6/uL (4.20-5.40); RED CELL DISTRIBUTION WIDTH 17.2 % (12.0-15.0); WHITE BLOOD COUNT 10.5 x10^3/uL (4.8-10.8)
[2020-08-30 20:12] LABS: ALBUMIN 3.8 g/dL (3.2-5.5); ALBUMIN/GLOBULIN RATIO 1.3 (1.0-2.2); BILIRUBIN,TOTAL 0.9 mg/dL (0.2-1.0); CALCIUM 8.7 mg/dL (8.5-10.3); POTASSIUM 4.7 mmol/L (3.5-5.0); TOTAL PROTEIN 6.7 g/dL (6.7-8.2)
== END 2020-08-30 14:50 | disposition home or self-care (01) ==
LOC: LAB.S 14:49
PROVIDERS: ATTEND Nurse Practitioner Adult Health
DX: D64.9 Anemia, unspecified (principal); Z79.899 Other long term (current) drug therapy
CPT/HCPCS: 36415; 80053; 85025

== ENCOUNTER 2020-09-06 14:30 | Outpatient (CLI) | payer MEDICARE, OTHER ==
--- NOTE | 2020-09-06 18:07 | CONSULTATION NOTE ---
Palliative Care Follow Up - Referral Referring Provider: Dr. Geri Montalvo Time of Visit: [id number] Referral setting: Home Referral Reason: Pain of neoplastic origin/Met uterine Adenocarcinoma with lung mets - Information Sources Records reviewed: Previous records reviewed History/Review of Systems obtained from: Patient, Friend (Kyle and Servando present) Exam limitations: Clinical condition - History of Present Illness Update Brief HPI Update: This is a em 85-year-old woman who has known recurrent uterine adenocar cinoma with lung mets, currently receiving Paxil Taxol, but does admit Mab and carboplatinum. She is just completed her fourth round on 09/05, has recently transferred care to Dr. Geri Templeton. Patient has known bulky disease, but clinically has responded with decreased pain, and decreased breathlessness, and CT of the chest on 08/29/2020 showed dramatic improvement from her original scan in [place]. Her treatment plan includes completing 6 cycles and then on maintenance Avastin. She is quite pleased, she feels like she can commit to this, and has continued to show improvement almost daily. We have been titrating back her pain medications as she has had improvement. She reports no pain currently, has not even needed to have the CBD massage on her back. She is sleeping well. We have been titrating her back on her dexamethasone, currently she is on 4 mg, with a decrease of her gabapentin to 300 mg twice daily, and completion of the cyclobenzaprine. Mood fluctuations, as well as persistent fatigue, but continues to improve daily and increasing her activity. She has not quite completed the nystatin, but her oral candidiasis is cleared, her mouth is more comfortable her voice is less hoarse. She had elevated blood pressure yesterday at clinic, today it looks good at 122/64. She is on 3 blood pressure meds, with plan to start monitoring on a regular basis. Reassured could work with Dr. Rodas to titrate medications as needed. Past Medical History: Original diagnosis of history of stage I grade 2 endometrial carcinoma 2016 with hysterectomy. Recurrent pain and bleeding September 2013, received vaginal cuff radiation followed by chemotherapy of carboplatinum/Taxol until April 2014. Hypertension, headaches/migraines, hypothyroidism, mild incontinence, dental implants, anxiety, arthritis, osteoporosis, osteopenia, PMR, Port-A-Cath placement 06/04, right hip repair fracture 2017 Social History - Living Situation Living arrangement: Other Living Situation: With friend(s) Support System: Patient is , her of Parkinson's in 2018. She had been living by herself, unfortunately her house has multiple stairs. She has em friends KYLE and is staying in her apartment. KYLE and Servando support her on a regular basis as well as her other friends in the neighborhood. She has been making plans to bring her [id number] September, who was to her son who of Parkinson's, out to her home. She would then move in with her, for what ever time she had remaining. She is very excited about these plans, unclear how quickly they are going to come together. Medications/Allergies - Medications Home Medications: Ambulatory Orders Medication Instructions Recorded Confirmed Acetaminophen [Tylenol] 1,000 mg PO TID PRN 08/15/20 09/06/20 Amlodipine Besylate [Norvasc] 10 mg PO DAILY 08/15/20 09/06/20 Dexamethasone [Decadron] 3 mg PO DAILY 08/15/20 09/06/20 Gabapentin [Gralise] 300 mg PO .200 AM 300 PM 08/15/20 09/06/20 Levothyroxine [Synthroid] 112 mcg PO DAILY 08/15/20 09/06/20 Losartan [Cozaar] 100 mg PO DAILY 08/15/20 09/06/20 Metoprolol Succinate [Toprol Xl] 100 mg PO DAILY 08/15/20 09/06/20 Prevagen 1 tab PO DAILY 08/15/20 09/06/20 Nystatin [Mycostatin] 5 ml PO QID MDD 7 days 08/24/20 09/06/20 Ondansetron [Ondansetron Odt] 8 mg PO Q8HR PRN 08/24/20 09/06/20 Senna [Senokot] 1 - 2 tab PO DAILY PRN 08/24/20 09/06/20 - Allergies Allergies/Adverse Reactions: Allergies Allergy/AdvReac Type Severity Reaction Status Date / Time Sulfa (Sulfonamide Allergy Edema Verified 08/23/20 07:46 Antibiotics) thimerosal Allergy Edema Verified 08/23/20 07:46 oxycodone AdvReac Hallucinati Verified 08/23/20 07:46 ons tramadol AdvReac Anxiety Verified 08/24/20 05:15 Review of Systems - Constitutional Constitutional: reports: Fatigue (improved), Weakness, Weight gain. denies: Fever, Chills - Eyes Eyes: reports: Vision loss, Corrective lenses - Ears, Nose & Throat Ears, Nose & Throat: reports: Hearing loss, Hearing aids, Dry mouth. denies: Mouth lesions (candidiasis resolved) - Cardiovascular Cardiovascular: reports: Lightheadedness (improving; less frequent), Exertional dyspnea, Decr. exercise tolerance. denies: Edema - Respiratory Respiratory: reports: Cough, SOB with exertion. denies: SOB at rest - Gastrointestinal Gastrointestinal: reports: Diarrhea (loose stools more than 3-4 x a day), Early satiety, Good appetite (improving). denies: Constipation, Nausea - Genitourinary Genitourinary: reports: Incontinence (intermittent) - Musculoskeletal Musculoskeletal: reports: Stiffness, Muscle weakness, Assistive devices (using rolling walker when outside) - Integumentary Integumentary: reports: Dryness, Hair changes (alopecia) - Neurological Neurological: reports: General weakness, Numbness (peripheral neuropathy numbness hands and fingers), Memory problems (feels is clearing some), Abnormal gait - Psychiatric Psychiatric: reports: Anxiety - Endocrine Endocrine: reports: Hypothyroidism - All Other Systems All Other Systems: reports: Reviewed and negative Physical Exam - Vital Signs Temperature: 97.9 C Pulse Rate: 87 Respiratory Rate: 18 O2 Saturation: 96 (ra @ rest) Blood Pressure: 122/64 - Physical Exam General Appearance: positive: No acute distress, Alert Eyes Bilateral: positive: Normal inspection ENT: positive: Other (hoarseness improved this week; almost resolved). negative: Oral lesions Neck: positive: Trachea midline Cardiovascular: positive: Irregularly irregular Respiratory: positive: No respiratory distress, Diminished in bases (left greater than right). negative: Wheezes Abdomen: positive: Non-tender, Soft Skin: positive: Pallor, Dryness, Other (alopecia) Extremities: positive: No pedal edema, Other (gait slightly ataxic) Neurologic/Psychiatric: positive: Oriented x3, Mood/affect nml, Weakness Palliative Care - POLST Patient has POLST: Yes POLST Status: DNR, Selective Treatment Pain: Pain improved, Location (chest / back / neck area almost completely resolved) Tiredness/Fatigue: Moderate (4-6) Drowsiness/Sedation: None Nausea: None Anorexia: None Dyspnea: Mild (1-3) Depression: Mild (1-3) Anxiety: Mild (1-3) Feelings of wellbeing/Perceived Quality of Life: Good, Improved Sleep: Sleep improved Performance Status: Patient feeling stronger and able to ambulate around apartment without walker, managing ADLs independently at this time. Starting to increase walking for improved endurance. - Palliative Care Discussion: Patient feeling hopeful, recognizing she is responding at least clinically, feeling better. She is very grateful, particularly since her quality of life continues to improve. She feels very supported by her friends, is very much looking forward to having her [id number] and her family come be with her and support her. She is working on her end-of-life planning, meeting with government service executive, and getting her documents all taking care of. Patient does have a POLST with DN AR/DNI, will revisit DPOA particularly with [id number] coming and taking caregiving role on. Results - Lab Results Lab results reviewed: Yes Impression and Recommendations - Palliative Care Impression: This is a em 85-year-old woman with recurrent uterine adenocarcinoma with lung mets, with clinical response. She presented with severe bulky disease, with a left hilar perihilar lung mass, and mediastinal mass, she is having less symptoms as this has responded to treatment. Her breathlessness, pain, and worsening fatigue are continuing to improve. Have been titrating back her pain medications to improve response and decrease fatigue. Palliative care continue to provide support for pain and symptom management and anticipatory guidance. Recommendations/Counseling Done: 1. Oral candidiasis. Patient has had good response, her mouth is looking clear, is feeling less dry, hoarseness is resolving. She does have a few more days. 2. Pain of neoplastic origin. Patient with known tumor compression to mediastinum and lung, has continued improvement with pain decreasing suspected related to clinical tumor shrinkage as noted on most recent CT scan. Am titrating back pain medications, have been able to titrate back to gabapentin most recent titration will be 200 mg in the a.m., 300 mg at bedtime, will continue to titrate to 100 mg a.m. and 300 mg at bedtime. She has discontinued her cyclobenzaprine, with decreased dizziness and starting to feel more clear. 3. Steroid use. Patient was put on dexamethasone 6 mg for inflammatory component of pain, his pain is improved have continue to titrate down, will titrate down to 3 mg daily from 4 mg, and continue to titrate weekly until able to discontinue. Counseling regarding long-term use the burdens outweigh the benefits, though it has been helpful for energy, pain and appetite she is improving at baseline overall. 4. Weight loss. Patient is continuing to improve as far as her anorexia, is eating better, is managing to stay hydrated. She is supplementing her diet with high-calorie foods and doing well addressing this issue. 5. Hypertension. Patient has had escalating hypertension, suspected related both to tumor burden as well as her Avastin, this is improved from yesterday, reiterated she will need to monitor twice a day, will continue to titrate medications. 7. Generalized weakness. Patient continues to feel stronger, she is able to ambulate in the home without her walker, is using her rolling walker. Counseling regarding progressive ambulation, did encourage possible use of peddler for improving quad strength and endurance. 8. Metastatic recurrent uterine cancer. She has transitioned her care to the [facility] clinic, is finding this quite supportive, remembers having been treated previously some of the same staff. She is uncertain whether she be a possible candidate for immunotherapy, at this point in time it looks like she is scheduled for Avastin for maintenance, she has completed 4 of 6 cycles of her current chemotherapy. 9. Advanced care planning. POLST was completed with DNR and selective treatments. She is continuing to explore DPOA, does appear her [id number] Priscilla will be coming to be a primary caregiver, continue to provide support to the role of palliative care. Counseling provided regarding normalizing feelings of fluctuating emotional response. We will continue to monitor, will titrate off steroids, and reevaluate if need for pharmacologic support for mood. 60 minutes with greater than 50% of this time in counseling regarding pain and symptom management psychosocial support and anticipatory guidance.
== END 2020-09-06 14:31 | disposition home or self-care (01) ==
LOC: PC 14:30
PROVIDERS: ATTEND Nurse Practitioner Adult Health
DX: Z51.5 Encounter for palliative care (principal); B37.0 Candidal stomatitis; G89.3 Neoplasm related pain (acute) (chronic); C55 Malignant neoplasm of uterus, part unspecified; C78.00 Secondary malignant neoplasm of unspecified lung; R63.0 Anorexia; I10 Essential (primary) hypertension; R53.1 Weakness; Z79.899 Other long term (current) drug therapy; Z79.52 Long term (current) use of systemic steroids; Z66 Do not resuscitate
CPT/HCPCS: 99350

== ENCOUNTER 2020-09-27 15:30 | Outpatient (CLI) | payer MEDICARE, OTHER ==
--- NOTE | 2020-09-27 19:02 | CONSULTATION NOTE ---
Palliative Care Follow Up - Referral Referring Provider: Dr. 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 She has had a good clinical response to her carboplatinum/Taxol and Avastin since 06/2020. She has had improved pain management, decreased dyspnea, and overall feeling of wellbeing. She is just c ompleted 5 of 6 cycles, then expected to continue on either maintenance Avastin or other treatment regimen. With her pain decreasing, have been titrating down her medications, currently she is on gabapentin 100 mg a.m. and 300 mg p.m., have titrated down her dexamethasone to 2 mg daily from 6 previously. She still continues with some elevation of her blood pressure, though today it is 142/72. Her most problematic component today actually is her pain in her left jaw, this is related to root canal a couple weeks ago. She had plan to see the commercial food instructor on Friday, but had canceled because there has been slight improvement. Today she is complaining of worsening pain. Did review her labs, she does have an elevated white blood cell count from 13.6, 09/05 was 7.3 and her neutrophil count is 9.4 and previously 4.9. She does not have any fever or chills, though she has been taking acetaminophen on a regular basis for her tooth pain. She has remained weight neutral, at 120 and holding. She is eating and drinking well, she feels like overall her quality of life has continued to improve. She does recognize the seriousness of her illness but is hoping for both quality and quantity at this point in time. Her breathlessness is still present with some activity intolerance, she does have decreased breath sounds in the left lower lobe this is not changed. Past Medical History: 2017 stage I grade 2 endometrial carcinoma with hysterectomy, recurrent pain and bleeding 09/2013 with vaginal cuff radiation followed by chemotherapy of carboplatinum/Taxol until April 2014.Hip fracture 2018 with repair right, Hypertension, headaches/migraines, hypothyroidism, mild incontinence, dental implants, anxiety, arthritis, osteoporosis, osteopenia, PMR, Port-A-Cath p lacement 05/2020 Social History - Living Situation Living arrangement: Other Living Situation: With friend(s) Support System: Patient living in basement apartment of friend KYLE. Her [id number] September is coming in October, she will be moving back to her own home. Patient is , her of Parkinson's in 2018. She is well supported and cared for by her friends and community. Medications/Allergies - Medications Home Medications: Ambulatory Orders Medication Instructions Recorded Confirmed Acetaminophen [Tylenol] 1,000 mg PO TID PRN 08/15/20 09/28/20 Amlodipine Besylate [Norvasc] 10 mg PO DAILY 08/15/20 09/28/20 Dexamethasone [Decadron] 2 mg PO DAILY MDD titrating down 08/15/20 09/28/20 Gabapentin [Gralise] 300 mg PO .100 AM 300 PM 08/15/20 09/28/20 Levothyroxine [Synthroid] 112 mcg PO DAILY 08/15/20 09/28/20 Losartan [Cozaar] 100 mg PO DAILY 08/15/20 09/28/20 Metoprolol Succinate [Toprol Xl] 100 mg PO DAILY 08/15/20 09/28/20 Prevagen 1 tab PO DAILY 08/15/20 09/28/20 Ondansetron [Ondansetron Odt] 8 mg PO Q8HR PRN 08/24/20 09/28/20 Senna [Senokot] 1 - 2 tab PO DAILY PRN 08/24/20 09/28/20 Amoxicillin 500 mg PO TID MDD 7 days 09/28/20 09/28/20 - Allergies Allergies/Adverse Reactions: Allergies Allergy/AdvReac Type Severity Reaction Status Date / Time Sulfa (Sulfonamide Allergy Edema Verified 09/25/20 10:00 Antibiotics) thimerosal Allergy Edema Verified 09/25/20 10:00 oxycodone AdvReac Hallucinati Verified 09/25/20 10:00 ons tramadol AdvReac Anxiety Verified 09/25/20 10:00 Review of Systems - Constitutional Constitutional: reports: Fatigue, Weakness, Weight gain. denies: Fever, Chills - Eyes Eyes: reports: Vision loss, Corrective lenses - Ears, Nose & Throat Ears, Nose & Throat: reports: Hearing loss, Hearing aids, Dental pain (had root canal; has persisted;). denies: Mouth lesions (candidiasis resolved) - Cardiovascular Cardiovascular: reports: Exertional dyspnea, Decr. exercise tolerance. denies: Edema - Respiratory Respiratory: reports: SOB with exertion. denies: SOB at rest - Gastrointestinal Gastrointestinal: reports: Early satiety, Good appetite (improving). denies: Constipation, Nausea - Genitourinary Genitourinary: reports: Incontinence (intermittent) - Musculoskeletal Musculoskeletal: reports: Stiffness, Muscle weakness, Assistive devices (using rolling walker when outside) - Integumentary Integumentary: reports: Dryness, Hair changes (alopecia) - Neurological Neurological: reports: General weakness, Numbness (peripheral neuropathy numbness hands and fingers), Memory problems (feels is clearing some), Abnormal gait - Psychiatric Psychiatric: reports: Anxiety - Endocrine Endocrine: reports: Hypothyroidism - Hematologic/Lymphatic Hematologic/Lymph: reports: Anemia (11.6) - All Other Systems All Other Systems: reports: Reviewed and negative Physical Exam - Vital Signs Temperature: 97.2 C Pulse Rate: 76 Respiratory Rate: 18 O2 Saturation: 98 (ra @ rest) Blood Pressure: 142/72 - Physical Exam General Appearance: positive: No acute distress, Alert Eyes Bilateral: positive: Normal inspection ENT: positive: Other (hoarseness improved this week; almost resolved). negative: Oral lesions Neck: positive: Trachea midline Cardiovascular: positive: Irregularly irregular Respiratory: positive: No respiratory distress, Diminished in bases (left greater than right). negative: Wheezes Abdomen: positive: Non-tender, Soft Skin: positive: Pallor, Dryness, Other (alopecia) Extremities: positive: No pedal edema, Other (gait slightly ataxic) Neurologic/Psychiatric: positive: Oriented x3, Mood/affect nml, Weakness Palliative Care - POLST Patient has POLST: Yes POLST Status: DNR, Selective Treatment Pain: Pain worsening (mouth pain with dental issues), Pain improved (no further back/neck shoulder pain) Tiredness/Fatigue: Moderate (4-6) Drowsiness/Sedation: Mild (1-3) Nausea: None Anorexia: Mild (1-3) Dyspnea: Mild (1-3) Depression: None Anxiety: None Feelings of wellbeing/Perceived Quality of Life: Good, Acceptable, Improved Sleep: Variable sleep pattern Constipation: No Performance Status: Patient feeling a little weak and shaky today, she had received chemotherapy yesterday. She has been improving as far as her functional status. She is trying to walk daily, she is doing some daily "squats". She is planning to start swimming again when the pool opens. She is using a rolling walker when she is outside, she is managing her ADLs. - Palliative Care Discussion: Patient feels like her current quality of life is wonderful as far as the support she is receiving. She is very much looking forward to spending whatever time she has left with her family, September is coming to live with her and she very much is looking forward to having her second Covid shot so she can hug her grandchildren. She is continue to work on her end-of-life planning, has most everything taken care of. She does have a POLST with DN AR/DNI, will revisit DPOA when [id number] arrives, as most likely will be engaged in her care long-term Results - Lab Results Lab results reviewed: Yes Lab and Imaging Results: 09/25 WBC 13.6; RBC 3.66; hematocrit 11.6; hematocrit 35.4 neutrophils 9.4 Impression and Recommendations - Palliative Care Impression: This is a em 85-year-old woman with recurrent uterine adenocarcinoma with lung mets, with clinical response with decreased dyspnea and pain. She had presented originally with severe bulky disease, is having less symptoms. She is having no persistent pain regarding her root canal, she does have elevated white blood count. She is having some persistent fatigue. Have been titrating back pain medications without any exacerbation. Palliative care continue provide support for pain and symptom management anticipatory guidance Recommendations/Counseling Done: 1. Dental pain. Patient presents with elevated white count, with persistent and worsening dental pain at base of root canal. Had seen dentist, recommended follow-up with an dentist. She has not made appointment, recommend she do this urgently. Did reach out to oncology Dr. HONG PEDROZA, he did see her on Friday, will go ahead and treat with amoxicillin 500 mg 3 times daily for 7 days. 2. Pain of neoplastic origin. Patient with known tumor compression to mediastinum and lung, has continued to have improvement with pain no pain in neck or back area. Most likely related to clinical tumor shrinkage and response. Continue to titrate back medications, currently at gabapentin 100 mg a.m. and gabapentin 300 mg at bedtime, will leave currently because of persistent mouth pain. 3. Steroid use patient is currently on 2 mg of dexamethasone, titrated down from 6 originally use for pain management. We will continue titration very slowly over the week. She will start 2 mg alternating with 1 mg x 1 week, 1 mg for 1 week, 1 mg alternating with a half a milligram x1 week, then half a milligram for a week. 4. Weight loss. Patient has improvement as far as anorexia, is eating better she is managing hydration without any difficulty. She has remained weight neutral this last week at 120. 5. Hypertension. Patient remains somewhat elevated today is 142/72, noted on blood pressure log post elevated blood pressures related to tooth pain, will treat and see if pain improves as well as blood pressures. Reassured her current blood pressures not within stroke range. Patient may continue with Avastin, may need further titration of medications. 6. Generalized weakness. Patient continues to enlist in activities improve her endurance and strength. Counseling provided regarding pacing activities to level of tolerance, balancing fatigue with increasing activity and endurance. 7. Metastatic recurrent uterine cancer. She is quite pleased with her transition to the care to the [facility], is finding them quite supportive. She is awaiting her follow-up scans and next plan for treatment for maintenance. 8. Advance care planning. POLST is in place with DN AR/DNI and selective treatments. She is continue to explore DPOA, her blsiiphr-[id number] Priscilla is coming to be primary caregiver, with most likely be a good candidate. Counseling provided regarding normalizing feelings of fluctuating emotional response, she is feeling quite positive and grateful at this point in time. We will continue to monitor, continue to titrate medications plan is to see her at her next treatment, and family meeting after scans and next treatment plan determined. Will include Priscilla, Kyle, and patient 45 minutes with greater than 50% of this done in counseling regarding pain and symptom management, coordination of care with oncology team, and anticipatory guidance.
== END 2020-09-27 15:31 | disposition home or self-care (01) ==
LOC: PC 15:30
PROVIDERS: ATTEND Nurse Practitioner Adult Health
DX: Z51.5 Encounter for palliative care (principal); K08.89 Other specified disorders of teeth and supporting structures; G89.3 Neoplasm related pain (acute) (chronic); C55 Malignant neoplasm of uterus, part unspecified; C78.00 Secondary malignant neoplasm of unspecified lung; I10 Essential (primary) hypertension; R53.1 Weakness; Z79.52 Long term (current) use of systemic steroids; Z79.899 Other long term (current) drug therapy; Z66 Do not resuscitate
CPT/HCPCS: 99349

== ENCOUNTER 2020-10-18 09:45 | Outpatient (CLI) | payer MEDICARE, OTHER ==
--- NOTE | 2020-10-18 12:47 | CONSULTATION NOTE ---
Palliative Care Follow Up - Referral Referring Provider: Dr. 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 She has had a good clinical response to her carboplatinum/Taxol and Avastin since 06/2020. She has had improved pain lesa gement, decreased dyspnea, but now has persistent fatigue, complaining of weakness in her quads. She is also complaining of increased neuropathy, not pain but numbness that is worse sitting in her fingers and in her toes, it is affecting her ambulation and walking. This is her last treatment with the Taxol, as she was to receive 6 of 6 treatments. She is also had elevated blood pressure, concern regarding Avastin, her blood pressure today is 145/69 with a pulse of 58. She has had recurrent difficulties with her teeth, she still has some residual pain in her left jaw, had to have a repeat root canal. There is concern regarding patient's status while she is on active treatment. Patient reports only pain she has had is in her left upper jaw, Dr. Shirley PEDROZA did prescribe Tylenol 3, patient actually tolerated this without any nausea or vomiting or adverse reaction. Patient has done poorly with oxycodone, tramadol and other narcotics previously, so is quite pleased as it did help with the t hrobbing. She is looking forward to being off of her trifecta, and to continue with her maintenance, she is to receive scans and treatment planning after that. Past Medical History: 2017 grade 1 endometrial carcinoma with hysterectomy, recurrent pain and bleeding 09/2013 with vaginal cuff radiation followed by chemotherapy of carboplatinum Taxol until April 2014, hip fracture 2018 with repair, hypertension, headaches/migraines, hypothyroidism, mild incontinence, dental implants, anxiety, arthritis, osteoporosis, osteopenia, PMR, Port-A-Cath placement 05/2020 Social History - Living Situation Living arrangement: Other Living Situation: With friend(s) Support System: Patient is , she is living currently with her friend be in their basement apartment. Her [id number] is coming in today, she is hoping to get back into her own home, she is very much looking forward to this as well as being with her family. She does have good support from her community, and very much is grateful for the support she is receiving Medications/Allergies - Medications Home Medications: Ambulatory Orders Medication Instructions Recorded Confirmed Acetaminophen [Tylenol] 1,000 mg PO TID PRN MDD 3000 mmg 08/15/20 10/18/20 combined with t#3 Gabapentin [Gralise] 300 mg PO .100 AM 300 PM 08/15/20 10/18/20 Levothyroxine [Synthroid] 112 mcg PO DAILY 08/15/20 10/18/20 Losartan [Cozaar] 100 mg PO DAILY 08/15/20 10/18/20 Metoprolol Succinate [Toprol Xl] 100 mg PO DAILY 08/15/20 10/18/20 Prevagen 1 tab PO DAILY 08/15/20 10/18/20 Ondansetron [Ondansetron Odt] 8 mg PO Q8HR PRN 08/24/20 10/18/20 Senna [Senokot] 1 - 2 tab PO DAILY PRN 08/24/20 10/18/20 Acetaminophen/Cod 300/30 [Tylenol 1 tab PO Q4HR PRN MDD 3000 mg all 10/18/20 10/18/20 #3] total apap Amlodipine Besylate [Norvasc] 10 mg PO DAILY 10/18/20 10/18/20 - Allergies Allergies/Adverse Reactions: Allergies Allergy/AdvReac Type Severity Reaction Status Date / Time Sulfa (Sulfonamide Allergy Edema Verified 10/17/20 10:19 Antibiotics) thimerosal Allergy Edema Verified 10/17/20 10:19 oxycodone AdvReac Hallucinati Verified 10/17/20 10:19 ons tramadol AdvReac Anxiety Verified 10/17/20 10:19 Review of Systems - Constitutional Constitutional: reports: Fatigue (worsening), Weakness (worsening), Weight gain. denies: Fever, Chills - Eyes Eyes: reports: Vision loss, Corrective lenses - Ears, Nose & Throat Ears, Nose & Throat: reports: Hearing loss, Hearing aids, Dental pain (had root canal; has persisted; throbbing controlled with T #3). denies: Mouth lesions (candidiasis resolved) - Cardiovascular Cardiovascular: reports: Exertional dyspnea, Decr. exercise tolerance. denies: Edema - Respiratory Respiratory: reports: SOB with exertion. denies: SOB at rest - Gastrointestinal Gastrointestinal: reports: Early satiety, Good appetite (improving). denies: Constipation, Nausea - Genitourinary Genitourinary: reports: Incontinence (intermittent) - Musculoskeletal Musculoskeletal: reports: Stiffness, Muscle weakness, Assistive devices (has declining function; ;using walker) - Integumentary Integumentary: reports: Dryness, Hair changes (alopecia) - Neurological Neurological: reports: General weakness, Numbness (peripheral neuropathy numbness hands and feet worsening), Memory problems (continues with STM issues), Abnormal gait - Psychiatric Psychiatric: reports: Anxiety - Endocrine Endocrine: reports: Hypothyroidism - Hematologic/Lymphatic Hematologic/Lymph: reports: Anemia (11.4) - All Other Systems All Other Systems: reports: Reviewed and negative Physical Exam - Vital Signs Temperature: 37.4 C Pulse Rate: 58 Respiratory Rate: 18 O2 Saturation: 96 (ra @ rest) Blood Pressure: 145/96 - Physical Exam General Appearance: positive: No acute distress, Alert Eyes Bilateral: positive: Normal inspection ENT: positive: Other (hoarseness improved). negative: Oral lesions Neck: positive: Trachea midline. negative: Lymphadenopathy (R), Lymphadenopathy (L) Cardiovascular: positive: Irregularly irregular Respiratory: positive: No respiratory distress, Diminished in bases (left greater than right). negative: Wheezes Abdomen: positive: Non-tender, Soft Skin: positive: Pallor, Dryness, Other (alopecia) Extremities: positive: No pedal edema, Other (gait slightly ataxic) Neurologic/Psychiatric: positive: Oriented x3, Mood/affect nml, Weakness Palliative Care - POLST Patient has POLST: Yes POLST Status: DNR, Selective Treatment Pain: Pain improved, Location (left upper teeth; worsening with eating) Tiredness/Fatigue: Moderate (4-6) Drowsiness/Sedation: Mild (1-3) Nausea: None Anorexia: Mild (1-3) Dyspnea: Mild (1-3) Depression: Mild (1-3) Anxiety: Mild (1-3) Feelings of wellbeing/Perceived Quality of Life: Fair, Acceptable, Worsening (activity tolerance) Sleep: Variable sleep pattern Performance Status: Patient has noted declining functional status, less tolerance for activity. She is stable to ambulate for short distances around the cul-de-sac, but does tire more quickly. She reports her quads are much more weaker, more difficulty getting from sitting to standing and is using her walker at all times when she is up and around. She is still able to bathe but does make sure her friends know she is getting in the shower. She is quite concerned that she is always been quite active. She is coming to the end of her treatment cycle, and is slightly anemic. She would be interested though in follow-up with physical therapy when improved counts and further away from chemo. - Palliative Care Discussion: Patient continues to be quite grateful for the time she has, she is very much appreciating the support of her friends. She does understand the seriousness of her illness, and is just taking things as they come. Her [id number] September is coming today, which she will be here for a month, with the expectation to come back after she sells her house to live and support Farrah. She is very much in favor of this and looking forward to being a back in her own home and having family support. She does have good support through her friends, she does understand the seriousness of her illness, but chooses to have a positive attitude. She does have some fluctuating anxiety, but otherwise is doing fairly well.She does have her POLST in place with DN AR/DNI and selective treatment. At this point in time her DURABLE POWER OF PHARMACY GENERAL MANAGER is her sister, but would like to change this to September when Priscilla arrives. Results - Lab Results Lab results reviewed: Yes Impression and Recommendations - Palliative Care Impression: This is a em 85-year-old woman with recurrent endometrial adenocarcinoma with lung mets, clinical response of decreased dyspnea and pain. She continues to have difficulty with her root canal, and dental pain. She has been having worsening activity tolerance, lower extremity weakness, and is concerned about returning to improve level of functioning. Patient's pain is currently only dental pain. Palliative care providing support for pain and symptom management and anticipatory guidance. Recommendations/Counseling Done: 1. Dental pain. Patient currently has no elevated white count, her dental pain is very persistent, she did have a repeat of the root canal. Her oncologist would like to connect with the kelp or seagrass gatherer, did send email for Joyce Sferra [phone]. She reports the Tylenol 3 has been effective, reviewed though need for bowel program with codeine, as well as reviewed total Tylenol intake at 3000 mg in 24 hours to include Tylenol 3. Patient is quite relieved she is gotten some relief from the throbbing. 2. Chemotherapy-induced peripheral neuropathy. Patient is not having increased pain with this, but more numbness is worsening hands and feet. She is completing her Taxol as of today, discussed may still have permanent damage, she did have some residual from her last round of carboplatinum Taxol. She denies pain or tingling with this, will leave her at the gabapentin though 100 mg a.m. and 300 mg p.m. Patient is interested for balance and strengthening physical therapy, will send prescription for support, she has been instructed not to s tart until after she has seen oncologist after her scans. But there has been a long waiting list. 3. Anorexia. Patient is remaining weight neutral, mostly has been interfered with the dental pain, she is using Ensure and small frequent meals. She is completely off the dexamethasone this weekend. 4. Anxiety. Patient continues with fluctuating anxiety, is doing fairly well overall, is looking forward to being back in her own home, and spending time with her family. 5. Hypertension. Patient's blood pressure today is 145/69. Has been up in 180s yesterday. She is fairly maximized out on her blood pressure medications, concerns about continue with Avastin and need for titration of medications. Did put a call into Dr. Cummins with request for recommendations. 6.Metastatic recurrent uterine cancer. She has been quite pleased with the transition of care to the [facility], she will have her follow-up scans in 2 weeks, and then decisions made regarding maintenance treatment. 8. Advance care planning. POLST is in place with DN AR/DNI and selective treatments. She is going to explore DPOA with her [id number] September who is coming to be her primary caregiver. Patient does understand the seriousness of her illness, continues to hope for the best, but is putting her end-of-life planning in place. 60 minutes with review of tests, documentation, obtaining and reviewing history, performing examination evaluation counseling and education, and coordination of care with PCP and oncology team
== END 2020-10-18 09:46 | disposition home or self-care (01) ==
LOC: PC 09:45
PROVIDERS: ATTEND Nurse Practitioner Adult Health
DX: Z51.5 Encounter for palliative care (principal); G89.3 Neoplasm related pain (acute) (chronic); C54.1 Malignant neoplasm of endometrium; C78.00 Secondary malignant neoplasm of unspecified lung; R53.83 Other fatigue; R53.1 Weakness; G62.0 Drug-induced polyneuropathy; T45.1X5A Adverse effect of antineoplastic and immunosuppressive drugs, initial encounter; R63.0 Anorexia; K08.89 Other specified disorders of teeth and supporting structures; R32 Unspecified urinary incontinence; H54.7 Unspecified visual loss; H91.90 Unspecified hearing loss, unspecified ear; R41.3 Other amnesia; R26.9 Unspecified abnormalities of gait and mobility; F41.9 Anxiety disorder, unspecified; E03.9 Hypothyroidism, unspecified; I10 Essential (primary) hypertension; Z66 Do not resuscitate
CPT/HCPCS: 99215

== ENCOUNTER 2020-11-15 14:55 | Outpatient (CLI) | payer MEDICARE, OTHER ==
--- NOTE | 2020-11-15 17:20 | CONSULTATION NOTE ---
Palliative Care Follow Up - Referral Referring Provider: Dr. Geri Montalvo Time of Visit: [id number] Referral setting: Home Referral Reason: Weakness/Met Uterine CA/HTN - Information Sources Records reviewed: Previous records reviewed History/Review of Systems obtained from: Patient, Friend (Shira) Exam limitations: No limitations - History of Present Illness Update Brief HPI Update: This is a em 85-year-old woman with metastatic endometrial adenocarcinoma, involving the left lung. She was diagnosed in May 2020, and started on carboplatinum/Taxol with Avastin every 3 weeks since May, finishing October 18, 2020 with cycle 6. She did have a staging scan which looks stable compared to her scan in August 2020. Clinically her pain is improved dramatically, have been titrating back her medications, she has had some worsening peripheral neuropathy, hypertension is improving, as well as her energy and activity tolerance. She still has some persistent pain related to her dental, needing a Tylenol 3 or 2 Tylenol bed time but this is continued to improve as well. She is quite pleased, she is to start Keytruda next week on a every 3-week cycle, until she progresses or experiences serious side effects. She is quite pleased with the simplified schedule, she is feeling quite positive overall. Her [id number] September will be returning mid December, and she will be able to move back home at that time. Patient is improving as far as physical stamina, she is walking a couple times a day, has started swimming. She has remained weight stable about 120 pounds. She is sleeping well and taking minimal meds other than her hypertension meds at this time. Past Medical History: 2017 grade 1 endometrial carcinoma with hysterectomy, recurrent pain and bleeding 09/2013 with vaginal cuff radiation; followed by chemotherapy and carboplatinum/Taxol until April 2014; hip fracture 2017 with repair, hypertension, headaches/migraines, hypothyroidism, mild incontinence, dental implants, anxiety, arthritis, osteoporosis, osteopenia PMR, Port-A-Cath placement 05/2020 Social History - Living Situation Living arrangement: Other Living Situation: With friend(s) Support System: Patient currently staying in a basement apartment of her friend Shira and her Servando. She is , and lives in the house above there is. They have been very supportive and watch over her, Shira over sees her medication. She is , her of Parkinson's on hospice a couple years ago. She also lost her son to Parkinson's, and it is his Priscilla who is coming to live with her Medications/Allergies - Medications Home Medications: Ambulatory Orders Medication Instructions Recorded Confirmed Acetaminophen [Tylenol] 1,000 mg PO TID PRN MDD 3000 mmg 08/15/20 11/16/20 combined with t#3 Gabapentin [Gralise] 300 mg PO QPM 08/15/20 11/16/20 Levothyroxine [Synthroid] 112 mcg PO DAILY 08/15/20 11/16/20 Losartan [Cozaar] 100 mg PO DAILY 08/15/20 11/16/20 Metoprolol Succinate [Toprol Xl] 100 mg PO DAILY 08/15/20 11/16/20 Prevagen 1 tab PO DAILY 08/15/20 11/16/20 Ondansetron [Ondansetron Odt] 8 mg PO Q8HR PRN 08/24/20 11/16/20 Senna [Senokot] 1 - 2 tab PO DAILY PRN 08/24/20 11/16/20 Acetaminophen/Cod 300/30 [Tylenol 1 tab PO Q4HR PRN MDD 3000 mg all 10/18/20 11/16/20 #3] total apap Amlodipine Besylate [Norvasc] 10 mg PO DAILY 10/18/20 11/16/20 Vitamin B Complex Vit C No.3 [B 1 tab PO DAILY 11/16/20 11/16/20 Complex with Vitamin C] - Allergies Allergies/Adverse Reactions: Allergies Allergy/AdvReac Type Severity Reaction Status Date / Time Sulfa (Sulfonamide Allergy Edema Verified 11/07/20 11:46 Antibiotics) thimerosal Allergy Edema Verified 11/07/20 11:46 oxycodone AdvReac Hallucinati Verified 11/07/20 11:46 ons tramadol AdvReac Anxiety Verified 11/07/20 11:46 Review of Systems - Constitutional Constitutional: reports: Fatigue (persistent), Weakness (improving), Weight gain (120). denies: Fever, Chills - Eyes Eyes: reports: Vision loss, Corrective lenses - Ears, Nose & Throat Ears, Nose & Throat: reports: Hearing loss, Hearing aids, Dental pain (dental work with residual pain at noc; using APAP or T #3 with relief; fluctuates). denies: Mouth lesions (candidiasis resolved) - Cardiovascular Cardiovascular: reports: Exertional dyspnea, Decr. exercise tolerance. denies: Edema - Respiratory Respiratory: reports: SOB with exertion. denies: SOB at rest - Gastrointestinal Gastrointestinal: reports: Early satiety, Good appetite (improving). denies: Constipation, Nausea - Genitourinary Genitourinary: reports: Incontinence (intermittent) - Musculoskeletal Musculoskeletal: reports: Stiffness, Muscle weakness, Assistive devices (using walker for outside walking only) - Integumentary Integumentary: reports: Dryness, Hair changes (alopecia) - Neurological Neurological: reports: General weakness, Numbness (peripheral neuropathy numbness hands and feet worsened with treatment; mild improvement with break), Memory problems (continues with STM issues), Abnormal gait - Psychiatric Psychiatric: reports: Anxiety - Endocrine Endocrine: reports: Hypothyroidism - Hematologic/Lymphatic Hematologic/Lymph: reports: Anemia (11.8) - All Other Systems All Other Systems: reports: Reviewed and negative Physical Exam - Vital Signs Temperature: 97.2 C Pulse Rate: 72 Respiratory Rate: 18 O2 Saturation: 96 Blood Pressure: 141/87 - Physical Exam General Appearance: positive: No acute distress, Alert Eyes Bilateral: positive: Normal inspection ENT: positive: Other (hoarseness almost resolved). negative: Oral lesions Neck: positive: Trachea midline. negative: Lymphadenopathy (R), Lymphadenopathy (L) Cardiovascular: positive: Irregularly irregular Respiratory: positive: No respiratory distress, Diminished in bases (left greater than right). negative: Wheezes Abdomen: positive: Non-tender, Soft Skin: positive: Pallor, Dryness, Other (alopecia) Extremities: positive: No pedal edema, Other (gait slightly ataxic) Neurologic/Psychiatric: positive: Oriented x3, Mood/affect nml, Weakness Palliative Care - POLST Patient has POLST: Yes POLST Status: DNR, Selective Treatment Pain: Pain improved, Location (all shoulder and neck pain resolved currently; still some dental pain at noc) Tiredness/Fatigue: Moderate (4-6) Drowsiness/Sedation: Mild (1-3) Nausea: None Anorexia: None Dyspnea: None Depression: None Anxiety: Mild (1-3) Feelings of wellbeing/Perceived Quality of Life: Good, Acceptable, Improved Sleep: Sleep improved Constipation: Yes Performance Status: Patient's functional status continues to improve, she is purposefully ambulating longer distances in her neighborhood, twice a day. She is initiate swimming, she is able to manage her own ADLs, she is pacing herself as she does get tired if she overdoes. - Palliative Care Discussion: Patient is grateful to be finished with her treatment, she is feeling better every day, she is a little anxious pending her Keytruda infusions, but thankful to have further options. She is very much taking advantage of just spending time with friends, looking forward December and feels at peace though she does understand the seriousness of her illness. She is looking forward to returning to her own home, this will happen most likely mid December if she continues to improve and her yruqzfsg-[id number]-ind September returns. Results - Lab Results Lab results reviewed: Yes Impression and Recommendations - Palliative Care Impression: This is a em 85-year-old woman with recurrent endometrial adenocarcinoma with lung mets, with decreased dyspnea and pain. She has completed her carbo/Taxol, and we will move onto immunotherapy of Keytruda. Her functional status has improved as her counts have improved and continues to heal after her chemotherapy. Palliative care providing support for pain and symptom management and anticipatory guidance. Recommendations/Counseling Done: 1. Dental pain. Pain continues to improve, she has needed less medication, mostly throbs at night with intermittent use of Tylenol 3 or to Tylenol. She has not needed any further medication during the day. No signs or symptoms of infection or worsening at this time. 2. Chemotherapy-induced peripheral neuropathy. Patient does not have pain but numbness. She was having worsening in her hands and feet, does feel slight improvement. She has completed her Taxol, though Keytruda can add to peripheral neuropathy as well. She is currently on gabapentin 100 mg a.m. and 300 p.m., will titrate back to 100 mg a.m. 3. Anorexia. Patient remains weight neutral, has been encouraged to increase weight now that she is feeling better. She does have some early satiety but is doing fairly well overall. 4. Anxiety. Patient continues with fluctuating anxiety but does feel like this continues to improve and has taken a attitude of taking things as it comes. She does have good support and is feeling encouraged with completion of her last chemotherapy. 5. Hypertension. Patient's blood pressure today is 141/87, her blood pressures will continue to improve running around 160s over 80s, but she is taking her blood pressures after she has had coffee. Discussed possibly taking later in the day. She does have hypertension at baseline, may or may not need titration of medications we will continue to follow. 6. Metastatic recurrent uterine cancer. Patient received good news with no further disease progression, now will transition to Keytruda every 3 weeks, counseling provided regarding addressing questions and concerns regarding side effects of Keytruda and reinforced if patient needs to access any kind of emergent care, to make sure they know she is on immunotherapy secondary to this will change how they do their work-up. 7. Advance care planning. POLST is in place with DNR/DNI and selective treatments. Will follow up when September is back regarding transitioning to DPOA. She does understand the seriousness of her illness, continues to hope for the best and has most of her end-of-life planning in place. 45 minutes with greater than 50% of this done in counseling regarding symptom management, anticipatory guidance, education on immunotherapy.
== END 2020-11-15 14:56 | disposition home or self-care (01) ==
LOC: PC 14:55
PROVIDERS: ATTEND Nurse Practitioner Adult Health
DX: Z51.5 Encounter for palliative care (principal); K08.89 Other specified disorders of teeth and supporting structures; G62.0 Drug-induced polyneuropathy; T45.1X5A Adverse effect of antineoplastic and immunosuppressive drugs, initial encounter; R63.0 Anorexia; F41.9 Anxiety disorder, unspecified; I10 Essential (primary) hypertension; C54.1 Malignant neoplasm of endometrium; C78.02 Secondary malignant neoplasm of left lung; Z66 Do not resuscitate
CPT/HCPCS: 99349

== ENCOUNTER 2020-12-12 11:34 | Outpatient (CLI) | payer MEDICARE, OTHER ==
--- NOTE | 2020-12-12 13:24 | CONSULTATION NOTE ---
Palliative Care Follow Up - Referral Referring Provider: Dr. Geri Montalvo Time of Visit: 0930 45 minutes Referral setting: MAC Referral Reason: Pain of neoplastic origin/CIPN/Generalized Weakness/Met - Information Sources Records reviewed: RN notes reviewed, Previous records reviewed History/Review of Systems obtained from: Patient, Friend (called friend and support person Shira) Exam limitations: No limitations - History of Present Illness Update Brief HPI Update: This is a em 85-year-old woman with metastatic endometrial adenocarcinoma, involving the left lung. She has just completed her carboplatinum/Taxol with Avastin, and now is on Keytruda for maintenance. Her blood pressure has improved, she is having more energy, her labs continue to improve as well. She has minimal pain, no evidence of disease progression, and has tolerated her Keytruda thus far. Her peripheral neuropathy which had exacerbated secondary to chemotherapy continues to improve, she still is concerned about balance, and still has some numbness and discomfort. Palliative care has been providing support for symptom management, anticipatory guidance, and psychosocial support. Past Medical History: Grade 1 endometrial carcinoma with hysterectomy 2016; recurrent pain and bleeding 09/2013 with vaginal cuff radiation; followed by chemotherapy of carboplatinum/Taxol until April 2014; hip fracture 2017 with repair; hypertension,; headaches/migraines; hypothyroidism; mild incontinence; dental implants; anxiety; arthritis, I osteoporosis, osteopenia, PMR, Port-A-Cath placement 05/2020 Social History - Living Situation Living arrangement: Other Living Situation: With friend(s) Support System: Patient currently residing in an apartment below her em friends Shira and Servando. She has many friends in the community that are helping her, she is hoping to move back into her own home come end of December with her [id number]. She does have many steps, has been working on getting stronger. She is also had visiting her granddaughter and great granddaughter who is 2, is feeling well supported without any concerns regarding financial stressors. Medications/Allergies - Medications Home Medications: Ambulatory Orders Medication Instructions Recorded Confirmed Acetaminophen [Tylenol] 1,000 mg PO TID PRN MDD 3000 mmg 08/15/20 12/12/20 combined with t#3 Gabapentin [Gralise] 300 mg PO QPM 08/15/20 12/12/20 Levothyroxine [Synthroid] 112 mcg PO DAILY 08/15/20 12/12/20 Losartan [Cozaar] 100 mg PO DAILY 08/15/20 12/12/20 Metoprolol Succinate [Toprol Xl] 100 mg PO DAILY 08/15/20 12/12/20 Prevagen 1 tab PO DAILY 08/15/20 12/12/20 Ondansetron [Ondansetron Odt] 8 mg PO Q8HR PRN 08/24/20 12/12/20 Senna [Senokot] 1 - 2 tab PO DAILY PRN 08/24/20 12/12/20 Acetaminophen/Cod 300/30 [Tylenol 1 tab PO Q4HR PRN MDD 3000 mg all 10/18/20 12/12/20 #3] total apap Amlodipine Besylate [Norvasc] 10 mg PO DAILY 10/18/20 12/12/20 Vitamin B Complex Vit C No.3 [B 1 tab PO DAILY 11/16/20 12/12/20 Complex with Vitamin C] - Allergies Allergies/Adverse Reactions: Allergies Allergy/AdvReac Type Severity Reaction Status Date / Time Sulfa (Sulfonamide Allergy Edema Verified 12/12/20 14:30 Antibiotics) thimerosal Allergy Edema Verified 12/12/20 14:30 oxycodone AdvReac Hallucinati Verified 12/12/20 14:30 ons tramadol AdvReac Anxiety Verified 12/12/20 14:30 Review of Systems - Constitutional Constitutional: reports: Fatigue (improved; paces self), Weakness (improving), Weight stable. denies: Fever, Chills - Eyes Eyes: reports: Vision loss, Corrective lenses - Ears, Nose & Throat Ears, Nose & Throat: reports: Hearing loss, Hearing aids, Dental pain (dental work with residual pain; now with pain bilateral; is controlled with intermittent APAP;). denies: Mouth lesions (candidiasis resolved) - Cardiovascular Cardiovascular: reports: Exertional dyspnea, Decr. exercise tolerance. denies: Edema - Respiratory Respiratory: reports: SOB with exertion. denies: SOB at rest - Gastrointestinal Gastrointestinal: reports: Early satiety, Good appetite (improving). denies: Constipation, Nausea - Genitourinary Genitourinary: reports: Incontinence (intermittent) - Musculoskeletal Musculoskeletal: reports: Stiffness, Muscle weakness, Assistive devices (using walker for outside walking only) - Integumentary Integumentary: reports: Dryness, Hair changes (hair starting to grow in) - Neurological Neurological: reports: General weakness, Numbness (peripheral neuropathy numbness hands and feet worsened with treatment; mildly improvinng), Memory problems (continues with STM issues), Abnormal gait - Endocrine Endocrine: reports: Hypothyroidism - Hematologic/Lymphatic Hematologic/Lymph: denies: Anemia - All Other Systems All Other Systems: reports: Reviewed and negative Physical Exam - Vital Signs Temperature: 36.6 C Pulse Rate: 57 Respiratory Rate: 18 O2 Saturation: 97 Blood Pressure: 152/67 - Physical Exam General Appearance: positive: No acute distress, Alert Eyes Bilateral: positive: Normal inspection ENT: positive: Other (hoarseness almost resolved). negative: Oral lesions Neck: positive: Trachea midline. negative: Lymphadenopathy (R), Lymphadenopathy (L) Cardiovascular: positive: Irregularly irregular Respiratory: positive: No respiratory distress, Diminished in bases (left greater than right). negative: Wheezes Abdomen: positive: Non-tender, Soft Skin: positive: Pallor, Dryness, Other (alopecia; lost her eyebrows) Extremities: positive: No pedal edema, Other (gait slightly ataxic) Neurologic/Psychiatric: positive: Oriented x3, Mood/affect nml, Weakness Palliative Care - POLST Patient has POLST: Yes POLST Status: DNR, Selective Treatment Pain: Pain improved, Location (some minor neck and shoulder pain; not needing mediciation) Tiredness/Fatigue: Moderate (4-6) Drowsiness/Sedation: Mild (1-3) Nausea: None Anorexia: Mild (1-3) Dyspnea: Mild (1-3) Depression: None Anxiety: Mild (1-3) Feelings of wellbeing/Perceived Quality of Life: Good, Acceptable, Improved Sleep: Sleeps well Constipation: No Performance Status: Patient is feeling stronger, is ambulating through the neighborhood at least twice a day, stamina is improving as well as gait. She still has some residual numbness and is using her walker, does not trust her balance. She would like to work on getting stronger, particularly with moving back into her own home with steps. She does feel she has the stamina at this point in time to consider referral to physical therapy. - Palliative Care Discussion: Patient remains in good spirits, she is quite grateful for the reprieve she has received. She is very grateful for the support from her community, and feels like she is continuing to improve regularly almost on a daily basis. She is tolerating her new treatment well and is looking forward to transitioning back to her own home. She does understand the seriousness of her illness, but is taking everything a day at a time. Results - Lab Results Lab results reviewed: Yes Impression and Recommendations - Palliative Care Impression: This is a em 85-year-old woman with recurrent endometrial adenocarcinoma with lung mets, who has had a good response with her carbo/Taxol and is currently receiving maintenance therapy of immunotherapy Keytruda. Her functional status has improved, her anemia is resolved, she still has some residual peripheral neuropathy and still has significant fatigue. Palliative care providing support for pain and symptom management and anticipatory gu idance. Recommendations/Counseling Done: 1. Neck and shoulder ache. This is new the last few days, is unclear if exacerbated by sleeping or activity. She has used CBD topical with good relief in the past, recommended she resume this, and if worsens to let me know. 2. Difficulty walking. This is multifactorial including her peripheral neuropathy, deconditioning, though she is improving daily. She is very much interested in physical therapy, she has worked with alone like physical therapy before, referral has been sent. 3. Chemotherapy-induced peripheral neuropathy. Patient does not have pain but does have numbness, this appears to be continuing to improve. Currently she is on the gabapentin 300 mg at bedtime, will continue this as sleep is also an issue. She will be able to work on her balance with physical therapy referral as well. 4. Weight loss. Patient has had only slight weight loss, but patient has been more active. She has been pushing water, we discussed need to balance this, and try other choice of fluids, including juices, lemonade's, discussed how to make protein drinks more palatable, as well as use of Gatorade in the hot weather. Written instructions provided, patient verbalizes understanding. 5. Dental pain. Patient does not have any lymphadenopathy, no visible signs of abscess. She now has bilateral upper pain in her molars. It is only uncomfortable enough to need Tylenol, does not need the Tylenol 3 currently. She is reticent to return back for dental examination. Reviewed signs and symptoms of concern, and reasons to pursue further follow-up. 6. Fatigue. Patient does have intermittent fatigue, she is trying to pace herself, she does not do visits with family, but discussed ways to put limits and stay within her boundaries. Patient is taking naps as needed, and is getting good sleep. It does continue to improve. 7. Metastatic endometrial adenocarcinoma with lung mets. Patient is tolerating Keytruda without any signs or symptoms of side effects at this point in time, will continue to monitor along with oncology team. 8. Hypertension. Patient still remains slightly hypertensive, but reports her readings at home are much better, and have been the best they have been for a long time. Patient continues to do well on current regimen, with improvement off Avastin. We will continue to monitor.Follow-up with friend, she is managing her own medications at this point time and has done well. 9. Advance care planning. Patient does have POLST in place with DN AR/DNI and selective treatments. Patient is quite realistic about her current condition, but continues to hope for the best and pleased with results. Her [id number] is coming towards the end of December, will follow up regarding DPOA with change in living situation. 45 minutes with review of chart, labs, imaging, coordination of care with oncology team, [id number] with patient for counseling regarding symptom management, physical exam, and anticipatory guidance. Plan for home visit with support team next month.
== END 2020-12-12 11:35 | disposition home or self-care (01) ==
LOC: PC 11:34
PROVIDERS: ATTEND Nurse Practitioner Adult Health
DX: Z51.5 Encounter for palliative care (principal); M54.2 Cervicalgia; M25.519 Pain in unspecified shoulder; R26.81 Unsteadiness on feet; G62.0 Drug-induced polyneuropathy; T45.1X5A Adverse effect of antineoplastic and immunosuppressive drugs, initial encounter; R63.4 Abnormal weight loss; K08.89 Other specified disorders of teeth and supporting structures; R53.83 Other fatigue; I10 Essential (primary) hypertension; G89.3 Neoplasm related pain (acute) (chronic); C54.1 Malignant neoplasm of endometrium; C78.02 Secondary malignant neoplasm of left lung; Z79.899 Other long term (current) drug therapy; Z66 Do not resuscitate
CPT/HCPCS: 99215

== ENCOUNTER 2021-01-11 15:00 | Outpatient (CLI) | payer MEDICARE, OTHER ==
--- NOTE | 2021-01-11 23:55 | CONSULTATION NOTE ---
Palliative Care Follow Up - Referral Referring Provider: Dr. Geri Montalvo Time of Visit: [id number] Referral setting: Home Referral Reason: Met Endometrial Ca/CIPN/Anxiety - Information Sources Records reviewed: Previous records reviewed History/Review of Systems obtained from: Patient, Friend (Kyle at visit;) Exam limitations: Clinical condition (patient with STM issues) - History of Present Illness Update Brief HPI Update: This is a em 85-year-old woman with metastatic endometrial adenocarcinoma, involving the left lung. She has completed her carboplatinum/Taxol with Avastin, and is now on maintenance Keytruda since November 2020. She has had some persistent fatigue, worsening after Keytruda treatments for 2 to 3 days, but overall has felt her symptom burden improving. Her peripheral neuropathy which is exacerbated secondary to chemotherapy, has improved, though concerns about balance and numbness remain. Her blood pressure has improved to normal levels, she does get hypertension with her visits to the clinic, but her blood pressure log reflects appropriate levels of around averaging 132 to 7/75, today she is 142/64. She does have persistent dental discomfort in right upper jaw, she has made an appointment as instructed to see her dentist for x-rays and to rule out any complications related to her past dental surgery. Pain is persistent but manageable with acetaminophen intermittently. Of concern today, patient has had some diarrhea, and review of last couple days, appears to be food related, but patient is to notify me if it remains persistent. I did respond to Imodium. The other issue is she has had weight loss, she is down to 116, this is multifactorial she does have early satiety, food does not sound good in the context of anorexia, she has been more active, and with the tooth pain can be a deterrent. Past Medical History: Grade 1 endometrial carcinoma with hysterectomy 2016. Recurrent pain and bleeding 09/2013 with vaginal cuff radiation followed by chemotherapy of carboplatinum Taxol until April 2014; hip fracture 2018 with repair; hypert ension, headaches/migraines, hypothyroidism, mild incontinence, dental implants, anxiety, arthritis, osteoporosis, osteopenia, PMR, Port-A-Cath placement 05/2020 Social History - Living Situation Living arrangement: Other Living Situation: With friend(s) Support System: Patient is , her of Parkinson's in 2018. She is currently living in an apartment of her friend Mo, well supported by her friends in the community. She is anxious to get back to her own home, this will happen when her yzmzxluj-sd-mtu is able to sell her home in [place] and moved in with her. Her son had of Parkinson's as well, and so she is quite pleased to have this arrangement but is awaiting for final timeline. She does have significant anxiety regarding this transition as pzojpmhv-au-yqm has not been involved in her medical journey. The goal would be for her to be her caregiver as things change in the future. Medications/Allergies - Medications Home Medications: Ambulatory Orders Medication Instructions Recorded Confirmed Acetaminophen [Tylenol] 1,000 mg PO TID PRN MDD 3000 mmg 08/15/20 01/02/21 combined with t#3 Gabapentin [Gralise] 300 mg PO QPM 08/15/20 01/02/21 Levothyroxine [Synthroid] 112 mcg PO DAILY 08/15/20 01/02/21 Losartan [Cozaar] 100 mg PO DAILY 08/15/20 01/02/21 Metoprolol Succinate [Toprol Xl] 100 mg PO DAILY 08/15/20 01/02/21 Prevagen 1 tab PO DAILY 08/15/20 01/02/21 Ondansetron [Ondansetron Odt] 8 mg PO Q8HR PRN 08/24/20 01/02/21 Acetaminophen/Cod 300/30 [Tylenol 1 tab PO Q4HR PRN MDD 3000 mg all 10/18/20 01/02/21 #3] total apap Amlodipine Besylate [Norvasc] 10 mg PO DAILY 10/18/20 01/02/21 Vitamin B Complex Vit C No.3 [B 1 tab PO DAILY 11/16/20 01/02/21 Complex with Vitamin C] - Allergies Allergies/Adverse Reactions: Allergies Allergy/AdvReac Type Severity Reaction Status Date / Time Sulfa (Sulfonamide Allergy Edema Verified 01/02/21 10:43 Antibiotics) thimerosal Allergy Edema Verified 01/02/21 10:43 oxycodone AdvReac Hallucinati Verified 01/02/21 10:43 ons tramadol AdvReac Anxiety Verified 01/02/21 10:43 Review of Systems - Constitutional Constitutional: reports: Fatigue (worse right after treatment 2-3 days), Weakness (improving), Weight loss (116). denies: Fever, Chills - Eyes Eyes: reports: Vision loss, Corrective lenses - Ears, Nose & Throat Ears, Nose & Throat: reports: Hearing loss, Hearing aids, Dental pain (dental work with residual pain; is controlled with intermittent APAP;). denies: Mouth lesions (candidiasis resolved) - Cardiovascular Cardiovascular: reports: Exertional dyspnea, Decr. exercise tolerance. denies: Edema - Respiratory Respiratory: reports: SOB with exertion. denies: SOB at rest - Gastrointestinal Gastrointestinal: reports: Diarrhea (last night), Poor appetite, Early satiety, Other (taste changes). denies: Constipation, Nausea - Genitourinary Genitourinary: reports: Incontinence (intermittent) - Musculoskeletal Musculoskeletal: reports: Stiffness, Muscle weakness, Assistive devices (using walker for outside walking only) - Integumentary Integumentary: reports: Dryness, Hair changes (hair starting to grow in) - Neurological Neurological: reports: General weakness, Numbness (peripheral neuropathy numbness hands and feet worsened with treatment; mildly improvinng), Memory p robguilherme (continues with short term memory issues; frustrating to her), Abnormal gait - Psychiatric Psychiatric: reports: Anxiety - Endocrine Endocrine: reports: Hypothyroidism - Hematologic/Lymphatic Hematologic/Lymph: denies: Anemia - All Other Systems All Other Systems: reports: Reviewed and negative Physical Exam - Vital Signs Temperature: 37.2 C Pulse Rate: 71 Respiratory Rate: 18 O2 Saturation: 98 Blood Pressure: 142/64 - Physical Exam General Appearance: positive: No acute distress, Alert Eyes Bilateral: positive: Normal inspection ENT: positive: Other (hoarseness almost resolved). negative: Oral lesions Neck: positive: Trachea midline. negative: Lymphadenopathy (R), Lymphadenopathy (L) Cardiovascular: positive: Irregularly irregular Respiratory: positive: No respiratory distress, Diminished in bases (left greater than right), Wheezes (mild exp wheeze MALIK) Abdomen: positive: Non-tender, Soft Skin: positive: Pallor, Dryness, Other (alopecia; lost her eyebrows) Extremities: positive: No pedal edema Neurologic/Psychiatric: positive: Oriented x3, Mood/affect nml, Weakness Palliative Care - POLST Patient has POLST: Yes POLST Status: DNR, Selective Treatment Pain: Location (neck; dental pain right upper side) Tiredness/Fatigue: Moderate (4-6) Drowsiness/Sedation: None Nausea: None Anorexia: Moderate (4-6), Weight loss Dyspnea: Mild (1-3) Depression: None Anxiety: Moderate (4-6) Feelings of wellbeing/Perceived Quality of Life: Good, Acceptable, Improved Sleep: Variable sleep pattern Constipation: No Performance Status: Patient's functional status continues to improve, she is ambulating and taking walks at least once a day. She is able to manage her ADLs, she has not heard from physical therapy but would like to continue pursue this. She has been quite active and needs to pace herself as there is many activities going on in the community for the summer. - Palliative Care Discussion: Patient does understand the seriousness of her illness, is feeling grateful just for the improvement in her current status and is hopeful for both quality and quantity of life. She is getting somewhat anxious regarding the transition to her new care setting, though she is excited to get home she is not very good at setting limits. Counseling provided regarding concerns and reviewed with Kyle her friend, And ways may be to help integrate her lrbamkwy-gv-cnw into patient's care and "bring her up to speed". Patient has been working with her yheaxmf-jc-qlk to finalize her financial/legal affairs. Patient does have POLST in place with DN AR and selective treatments, is quite realistic about her current situation. Results - Lab Results Lab results reviewed: Yes Impression and Recommendations - Palliative Care Impression: This is a em 85-year-old woman with recurrent endometrial adenocarcinoma with lung mets, who has had a good response to her carbo/Taxol and currently receiving maintenance therapy of immunotherapy Keytruda. Her functional status continues to improve, she does have some residual worsened peripheral neuropathy, and still with fluctuating fatigue. Palliative care providing support for pain and symptom management and anticipatory guidance. Recommendations/Counseling Done: 1. Neck and shoulder pain. This is recurred, is currently managed with intermittent topical CBD, will continue to monitor. 2. Dental pain. Patient has no lymphadenopathy, no visible signs of abscess or does have tenderness over right cheek area. She has been able to manage it with intermittent acetaminophen. She has made an appointment with dentist as requested to rule out any serious issues, they will do x-rays, on 01/16. She does understand if she would have fever, increased pain she is to seek evaluation more urgently. 3. Weight loss. Counseling provided to both patient and her support person KYLE, regarding goal for no further weight loss. Counseling provided regarding strategies to integrate into their current schedule. 4. Difficulty walking. This is multifactorial, including her peripheral neuropathy, deconditioning, though she mood continues to improve. She was interested in physical therapy, did send prescription, she has not heard from them she will call and make an appointment. 5. Fatigue. Patient does have intermittent fatigue, worsening after Keytruda infusion. She does feel like overall this is improving but remains fairly persistent. 6. Hypertension. Patient's readings at home are within normal range, patient does get quite anxious with appointments and medical staff. No changes needed to her current regimen. 7. Metastatic endometrial carcinoma with lung mets. Patient is currently tolerating Keytruda, she did develop some diarrhea, she will notify myself or oncology if remains persistent. She does attribute this to her rich meal yesterday. 8. Anxiety. This is multifactorial, patient is looking to transition back home, she has felt very well supported in her current environment, but would like to return back to her home setting. Counseling provided regarding ways to integrate hcyhkwpd-ca-qam into treatment/care team, will plan family meeting when she arrives to update her. 9. Advanced care planning. Patient does have POLST in place with DN AR/DNI and selective treatments. Patient is quite realistic about current condition, continues to hope for the best and is grateful for current results. She is finishing up her legal/financial planning issues. Patient does admit to being a person who likes to please everyone, discussed ways to set limits. 60 minutes with greater than 50% of this done in counseling regarding medication management, symptom management, anticipatory guidance, and coordination of care.
== END 2021-01-11 15:01 | disposition home or self-care (01) ==
LOC: PC 15:00
PROVIDERS: ATTEND Nurse Practitioner Adult Health
DX: Z51.5 Encounter for palliative care (principal); M54.2 Cervicalgia; M25.519 Pain in unspecified shoulder; K08.89 Other specified disorders of teeth and supporting structures; R19.7 Diarrhea, unspecified; R63.4 Abnormal weight loss; G62.0 Drug-induced polyneuropathy; T45.1X5A Adverse effect of antineoplastic and immunosuppressive drugs, initial encounter; R53.83 Other fatigue; I10 Essential (primary) hypertension; C54.1 Malignant neoplasm of endometrium; C78.02 Secondary malignant neoplasm of left lung; F41.9 Anxiety disorder, unspecified; Z79.899 Other long term (current) drug therapy; Z66 Do not resuscitate
CPT/HCPCS: 99350

== ENCOUNTER 2021-02-13 16:13 | Outpatient (CLI) | payer MEDICARE, OTHER ==
--- NOTE | 2021-02-13 16:40 | CONSULTATION NOTE ---
Palliative Care Follow Up - Referral Referring Provider: Dr. Geri Montalvo Time of Visit: 1445 45 min Referral setting: MAC Referral Reason: Pain of neoplastic origin/CIPN/Anxiety/Met endometrial CA - Information Sources Records reviewed: Previous records reviewed History/Review of Systems obtained from: Patient, Family (DIL Priscilla, new caregiver) Exam limitations: Clinical condition (patient with mild STM deficits) - History of Present Illness Update Brief HPI Update: This is a em 85-year-old woman with metastatic endometrial adenocarcinoma, involving the left lung. She has completed her carboplatinum/Taxol with Avastin and is now on maintenance Keytruda since November 2020. She is having persistent fatigue, particularly after treatment for 2 to 3 days. Unfortunately she is also having arthralgias, increased pain and discomfort in her shoulders bilaterally, left greater than right. She is concerned as this is how her original recurrence presented. 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 She originally had severe pain and pressure that radiated to her chest, neck and down her back. As she responded to treatment, her pain resolved. This is the first time it has been exacerbated. We did discuss it is acting more like a rheumatoid arthritis pain, which would be consistent as a side effect of Keytruda. She is also still having persistent pain in her right jaw where her tooth had been replaced that unfortunately radiates through her jawline and is still fairly uncomfortable. She has been to a dentist, and will be returning back to the endodentist next week. She is currently on gabapentin 300 mg at bedtime, originally with her exacerbation of pain we had to use dexamethasone, patient does not tolerate any opioids, so use a combination of steroids and gabapentin. Patient has been using some acetaminophen for her jaw pain, but is not effective for her shoulders. She has returned to using her topical CBD, with some relief but not sustained. Patient is eating better, she is back home and her tfbopkwi-zk-pen September she reports is a "fabulous cook". She though has lost 1 pound over the last 2 weeks, but has been more active with moving. Her other symptom of concern is the shortness of breath, though this only happens with activity, she denies shortness of breath at rest. Past Medical History: Grade 1 endometrial carcinoma with hysterectomy 2016, recurrent pain and bleeding 09/2013 with vaginal cuff radiation followed by chemotherapy of carboplatinum/Taxol through April 2014, hip fracture 2018 with repair, hypertension, headaches/migraines, hypothyroidism, mild incontinence, dental implants, anxiety, arthritis, osteoporosis, osteopenia, PMR, Port-A-Cath placement 05/2020 Social History - Living Situation Living arrangement: At home, Other Living Situation: With family Support System: Patient is at home with her msctrzql-dp-hef September, she is quite pleased she has come from [place]. Her son of Parkinson's a couple years ago, so this is a very good support for both of them. She is glad to be at home, but is been more active trying to get things organized. They are making arrangements for a chair lift as there are multiple stairs in the house, as well as a walk-in shower. Medications/Allergies - Medications Home Medications: Ambulatory Orders Medication Instructions Recorded Confirmed Acetaminophen [Tylenol] 1,000 mg PO TID PRN MDD 3000 mmg 08/15/20 01/23/21 combined with t#3 Gabapentin [Gralise] 300 mg PO QPM 08/15/20 01/23/21 Levothyroxine [Synthroid] 112 mcg PO DAILY 08/15/20 01/23/21 Losartan [Cozaar] 100 mg PO DAILY 08/15/20 01/23/21 Metoprolol Succinate [Toprol Xl] 100 mg PO DAILY 08/15/20 01/23/21 Prevagen 1 tab PO DAILY 08/15/20 01/23/21 Ondansetron [Ondansetron Odt] 8 mg PO Q8HR PRN 08/24/20 01/23/21 Acetaminophen/Cod 300/30 [Tylenol 1 tab PO Q4HR PRN MDD 3000 mg all 10/18/20 01/23/21 #3] total apap Amlodipine Besylate [Norvasc] 10 mg PO DAILY 10/18/20 01/23/21 Vitamin B Complex Vit C No.3 [B 1 tab PO DAILY 11/16/20 01/23/21 Complex with Vitamin C] - Allergies Allergies/Adverse Reactions: Allergies Allergy/AdvReac Type Severity Reaction Status Date / Time Sulfa (Sulfonamide Allergy Edema Verified 01/02/21 10:43 Antibiotics) thimerosal Allergy Edema Verified 01/02/21 10:43 oxycodone AdvReac Hallucinati Verified 01/02/21 10:43 ons tramadol AdvReac Anxiety Verified 01/02/21 10:43 Review of Systems - Constitutional Constitutional: reports: Fatigue (worse right after treatment 2-3 days), Weakness (improving), Weight loss (115). denies: Fever, Chills - Eyes Eyes: reports: Vision loss, Corrective lenses - Ears, Nose & Throat Ears, Nose & Throat: reports: Hearing loss, Hearing aids, Dental pain (dental work with residual pain; is moderately controlled with intermittent APAP; is pursuing follow up with endodentist). denies: Mouth lesions (candidiasis resolved) - Cardiovascular Cardiovascular: reports: Exertional dyspnea, Decr. exercise tolerance. denies: Edema - Respiratory Respiratory: reports: SOB with exertion. denies: SOB at rest - Gastrointestinal Gastrointestinal: reports: Poor appetite, Early satiety, Other (taste changes). denies: Constipation, Diarrhea, Nausea - Genitourinary Genitourinary: reports: Incontinence (intermittent) - Musculoskeletal Musculoskeletal: reports: Stiffness, Muscle weakness, Assistive devices (using walker for outside walking only) - Integumentary Integumentary: reports: Dryness, Hair changes (hair starting to grow in) - Neurological Neurological: reports: General weakness, Numbness (peripheral neuropathy numbness hands and feet worsened with treatment; mildly improvinng), Memory problems (continues with short term memory issues; frustrating to her), Abnormal gait - Psychiatric Psychiatric: reports: Anxiety - Endocrine Endocrine: reports: Hypothyroidism - Hematologic/Lymphatic Hematologic/Lymph: denies: Anemia - All Other Systems All Other Systems: reports: Reviewed and negative Physical Exam - Vital Signs Pulse Rate: 64 Respiratory Rate: 18 O2 Saturation: 96 Blood Pressure: 158/74 - Physical Exam General Appearance: positive: No acute distress, Alert, Anxious (with exacerbated pain) Eyes Bilateral: positive: Normal inspection ENT: positive: Other (hoarseness almost resolved). negative: Oral lesions Neck: positive: Trachea midline. negative: Lymphadenopathy (R), Lymphadenopathy (L) Cardiovascular: positive: Irregularly irregular Respiratory: positive: No respiratory distress, Diminished in bases (left greater than right), Wheezes (mild exp wheeze MALIK) Abdomen: positive: Non-tender, Soft Skin: positive: Pallor, Dryness, Other (alopecia; lost her eyebrows) Extremities: positive: No pedal edema Neurologic/Psychiatric: positive: Oriented x3, Mood/affect nml, Weakness Palliative Care - POLST Patient has POLST: Yes POLST Status: DNR, Selective Treatment Pain: Pain worsening, Location (see hPI) Drowsiness/Sedation: Mild (1-3) Nausea: None Anorexia: None Dyspnea: Mild (1-3) Depression: None Anxiety: None Feelings of wellbeing/Perceived Quality of Life: Good, Acceptable Sleep: Sleeps well Constipation: No Performance Status: Patient having increased difficulty getting from sitting to standing because of increased pain in her shoulders. She has been ambulatory in her home, but does feel like she could work on getting stronger. Did follow-up with physical therapy, unfortunately they are several months out, will resend to the [facility] (has appt 05/03 now at [facility]). She has a peddler her used with home physical therapy, encouraged to use this for building endurance.She is getting a walk-in shower built, is able to attend her ADLs independently - Palliative Care Discussion: Patient is a little bit distressed with increased pain, this is how it initially started with her original diagnosis of metastatic to the lung. She is very much pleased to be in her own home, is feeling like the is working out very well with September and seems very happy and content. She does understand the seriousness of her illness, but is hoping to continue to work on improving quality of life as well as quantity. Results - Lab Results Lab results reviewed: Yes Lab and Imaging Results: ESR 16,normal Impression and Recommendations - Palliative Care Impression: This is a em 86-year-old woman with recurrent endometrial adenocarcinoma with lung mets, who presents today with exacerbation and acute pain in her shoulders bilaterally radiating to her neck. Patient originally presented with similar symptoms, but may also be attributed to Keytruda arthralgia/musculoskeletal side effects. Patient continues to maintain weight, still with fluctuating fatigue particularly after treatment, but is in very good spirits and that she is returned back to her home. Palliative care providing support for pain and symptom management anticipatory guidance. Recommendations/Counseling Done: 1. Bilateral shoulder and neck pain. This has escalated, patient with limited range of motion, increased pain and discomfort, is not addressed with acetaminophen. Patient does not tolerate opioids, patient does have a history of PMR, but ESR was negative. Consulted with Aydee Caraballo PA-C, regarding use of's some prednisone for pain short term in the setting of immunotherapy, was in agreement to trial. Patient was instructed to initiate prednisone 10 mg daily with food, will trial for 2 weeks. She has been instructed to call if acute or worsens in the next week, then would need to follow-up if patient has recurrent disease and scans sooner, if improves, will taper. Follow-up with physical therapy referral done on 11/26/2020 report they are several months out, did make an appointment for 05/03/2021 but will facilitate and see if can be seen her at [facility]. 2. Dental pain. Patient does not have adenopathy, no signs or symptoms of abscess, has been followed up with dentist has had a trial of antibiotics without any improvement. She has been referred back to Endo dentist, has an appointment next week. This is been quite frustrating for her. 3. Difficulty walking. This is multifactorial, including her peripheral neuropathy, deconditioning, and difficulty getting from sitting to standing. We did discuss ways to limit weight bearing on shoulders, including positioning with pillows, height adjustments, patient is going to initiate peddler to increase quad strength. 4. Fatigue. Patient does have intermittent fatigue, worsening after Keytruda infusion. He does remains fairly persistent and is of concern. 5. Hypertension. Patient's home readings are within normal range, continues to be quite anxious with appointments. No changes needed. 7. Metastatic endometrial carcinoma with mets. Concern for side effects of K eytruda, no further diarrhea. She now presents though with arthralgia, musculoskeletal pain. We will continue to monitor. 8. Anxiety. This is multifactorial, she has been doing well transitioning back home, and welcoming of September as her support and caregiver. Addressed questions and concerns as able. 9. Advanced care planning. Patient does have POLST in place with DN AR/DNI and selective treatments. Patient remains quite realistic about her current condition, has been preparing for end-of-life, will follow up and see if she has transitioned DPOA yet. 45 minutes review of chart, oncology note, naxy-gw-yqap with patient, counseling to patient and family regarding pain and symptom management, and anticipatory guidance
== END 2021-02-13 16:14 | disposition home or self-care (01) ==
LOC: PC 16:13
PROVIDERS: ATTEND Nurse Practitioner Adult Health
DX: Z51.5 Encounter for palliative care (principal); M25.512 Pain in left shoulder; M25.511 Pain in right shoulder; M54.2 Cervicalgia; K08.89 Other specified disorders of teeth and supporting structures; R53.83 Other fatigue; I10 Essential (primary) hypertension; C54.1 Malignant neoplasm of endometrium; C78.02 Secondary malignant neoplasm of left lung; F41.9 Anxiety disorder, unspecified; Z79.899 Other long term (current) drug therapy; Z66 Do not resuscitate
CPT/HCPCS: 99215

== ENCOUNTER 2021-04-17 09:45 | Outpatient (CLI) | payer MEDICARE, OTHER ==
--- NOTE | 2021-04-17 12:52 | CONSULTATION NOTE ---
Palliative Care Follow Up - Referral Referring Provider: Dr. Geri Montalvo Time of Visit: [id number] [place] [facility] Reason: Anxiety/Cough/ - Information Sources Records reviewed: RN notes reviewed History/Review of Systems obtained from: Patient, Family (DIL September) Exam limitations: No limitations - History of Present Illness Update Brief HPI Update: This is a em 86-year-old woman with metastatic endometrial adenocarcinoma, involving the left lung. She has completed her carboplatinum/Taxol with Avastin and now is on maintenance Keytruda since 11/2020. She has had persistent fatigue after the first 2 or 3 days of treatment, and some traveling arthralgias, but has been feeling fairly well overall up to a couple weeks ago. She has developed an increased cough, notes that mostly in the a.m. and nighttime, is nonproductive. It is quite dry, feels like a tickle in her throat, can be managed with cough drops though both she and her [id number] noted that the severity is increasing. She is having some increased shortness of breath with this, and is worried in the context that this is how things started before for her. She did have a CT of the abdomen, pending looking at CT of the chest. Is awaiting results of this test to be able to better understand underlying etiology of cough. Patient does have some diminished breath sounds in her left lower lobe, as well as some scattered wheezes. Patient reports she is doing fairly well though gets quite distressed at having to be dependent. She is always been the caregiver, finds it difficult to be on the receiving end. She denies any significant anxiety other than her pending results of her tests. She is finally feeling relief from her pain in her left side of her head and mouth, had the tooth pulled. She has some mild tenderness but no further neuropathic sharp shooting pains. She does have persistent neuropathy, not painful, but numbness and affecting her balance. She has not followed through with physical therapy in the context of not wanting to have yet another appointment she needs support with. She is awaiting outcome of her test first, but is wanting to be more active. Past Medical History: Grade 1 endometrial carcinoma with hysterectomy 2016, recurrent pain and bleeding 09/2013 with vaginal cuff radiation followed by chemotherapy of carboplatinum/Taxol through April 2014, hip fracture 2017 with repair, hypertension, headaches/migraines, hypothyroidism, mild incontinence, dental implants, anxiety, arthritis, osteoporosis, osteopenia, PMR, Port-A-Cath placement 05/2020 Social History - Living Situation Living arrangement: At home, Other Living Situation: With family Support System: Patient is at home in her own home now, her [id number] September who is a of her son who of Parkinson's now lives with her. She reports this is been a very good support for them. They are working on making the house more accessible for her. Medications/Allergies - Medications Home Medications: Ambulatory Orders Medication Instructions Recorded Confirmed Acetaminophen [Tylenol] 1,000 mg PO TID PRN MDD 3000 mmg 08/15/20 04/17/21 combined with t#3 Gabapentin [Gralise] 300 mg PO QPM 08/15/20 04/17/21 Levothyroxine [Synthroid] 112 mcg PO DAILY 08/15/20 04/17/21 Losartan [Cozaar] 100 mg PO DAILY 08/15/20 04/17/21 Metoprolol Succinate [Toprol Xl] 100 mg PO DAILY 08/15/20 04/17/21 Prevagen 1 tab PO DAILY 08/15/20 04/17/21 Ondansetron [Ondansetron Odt] 8 mg PO Q8HR PRN 08/24/20 04/17/21 Acetaminophen/Cod 300/30 [Tylenol 1 tab PO Q4HR PRN MDD 3000 mg all 10/18/20 04/17/21 #3] total apap Amlodipine Besylate [Norvasc] 10 mg PO DAILY 10/18/20 04/17/21 Vitamin B Complex Vit C No.3 [B 1 tab PO DAILY 11/16/20 04/17/21 Complex with Vitamin C] - Allergies Allergies/Adverse Reactions: Allergies Allergy/AdvReac Type Severity Reaction Status Date / Time Sulfa (Sulfonamide Allergy Edema Verified 01/02/21 10:43 Antibiotics) thimerosal Allergy Edema Verified 01/02/21 10:43 oxycodone AdvReac Hallucinati Verified 01/02/21 10:43 ons tramadol AdvReac Anxiety Verified 01/02/21 10:43 Review of Systems - Constitutional Constitutional: reports: Fatigue (worse 1-2 days after treatment; otherwise doing well), Weakness (improving), Weight loss (115). denies: Fever, Chills - Eyes Eyes: reports: Vision loss, Corrective lenses - Ears, Nose & Throat Ears, Nose & Throat: reports: Hearing loss, Hearing aids, Dental pain (had tooth extracted; finally with some relief; tenderness but not needing medication). denies: Mouth lesions (candidiasis resolved) - Cardiovascular Cardiovascular: reports: Exertional dyspnea, Decr. exercise tolerance. denies: Edema - Respiratory Respiratory: reports: Cough (new; dry; has been increasing in frequency and severity over last few weeks;), SOB with exertion. denies: SOB at rest - Gastrointestinal Gastrointestinal: reports: Good appetite. denies: Constipation, Diarrhea, Nausea - Genitourinary Genitourinary: reports: Incontinence (intermittent) - Musculoskeletal Musculoskeletal: reports: Stiffness, Muscle weakness, Assistive devices (using walker for outside walking only) - Integumentary Integumentary: reports: Dryness, Hair changes (hair starting to grow in) - Neurological Neurological: reports: General weakness, Numbness (peripheral neuropathy numbness hands and feet worsened with treatment; remains persistent no pain; balance issues most problematic), Memory problems (continues with short term memory issues; frustrating to her), Abnormal gait - Psychiatric Psychiatric: reports: Anxiety - Endocrine Endocrine: reports: Hypothyroidism - Hematologic/Lymphatic Hematologic/Lymph: denies: Anemia - All Other Systems All Other Systems: reports: Reviewed and negative Physical Exam - Vital Signs Temperature: 37.0 C Pulse Rate: 57 Respiratory Rate: 16 Blood Pressure: 144/71 - Physical Exam General Appearance: positive: No acute distress, Alert, Anxious (pending results of scan) Eyes Bilateral: positive: Normal inspection ENT: negative: Oral lesions Neck: positive: Trachea midline. negative: Lymphadenopathy (R), Lymphadenopathy (L) Cardiovascular: positive: Irregularly irregular Respiratory: positive: No respiratory distress, Diminished in bases (left greater than right) Abdomen: positive: Non-tender, Soft Skin: positive: Pallor, Dryness Extremities: positive: No pedal edema Neurologic/Psychiatric: positive: Oriented x3, Mood/affect nml, Weakness Palliative Care - POLST Patient has POLST: Yes POLST Status: DNR, Selective Treatment Pain: No pain Tiredness/Fatigue: Moderate (4-6) Drowsiness/Sedation: Moderate (4-6) Nausea: None Anorexia: Mild (1-3) Dyspnea: Severe (7-10) (worsening) Depression: None Anxiety: None Feelings of wellbeing/Perceived Quality of Life: Good, Acceptable Sleep: Variable sleep pattern Constipation: No Performance Status: Patient in her new setting at home, less able to take walks like she was before. Is able to manage her her own ADLs. Very much does miss driving. 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 Is still considering whether to do physical therapy or not. - Palliative Care Discussion: Discussion today regarding her anxiety and concern about recurrent disease. She does understand her treatment is palliative in nature, has had both improvement in quality and grateful for quantity. Discussion and counseling provided regarding normalizing her feelings of loss of independence, accepting help, and anxiety in the context of living with serious illness. Patient continues to try and see the positive in her current situation, is very grateful for her support she has, and has been pleased with her treatment and support team. Results - Lab Results Lab results reviewed: Yes Impression and Recommendations - Palliative Care Impression: 1. Bilateral shoulder neck pain. This appears to mostly have abated, had r esponded well to the prednisone, suspect may have been a exacerbation of her PMR. At this point time does not need to further medication or prednisone, will continue with intermittent heat and topicals. 2. Dental pain. Patient has had tooth removed, this was just last week with some mild tenderness but relief of the significant sharp shooting pain. This should continue to escalate. 3. Difficulty walking. This is multifactorial, including her peripheral neuropathy that remains persistent, deconditioning. She is able to manage her ADLs, and continues to work with her peddler and things that she can do around the house. She is still weighing benefits and burdens of moving forward with physical therapy. 4. Cough. This is of course of concern, awaiting results from CT of chest. Cu rrently is managed with just cough drops and water. Will revisit depending on etiology. 5. Anxiety. This is multifactorial, she does appreciate being back home, has been difficult not driving and excepting support. Counseling provided to normalize patient's adjustment to illness and loss of independence. 6. Advanced care planning. Patient does have POLST in place with DN AR/DNI and selective treatments. Patient initiated conversation regarding possible long- term planning depending on the outcome of her test, we did discuss we can continue to explore this as more information is available, but also to explore for the future if further planning needed.
== END 2021-04-17 09:46 | disposition home or self-care (01) ==
LOC: PC 09:45
PROVIDERS: ATTEND Nurse Practitioner Adult Health
DX: Z51.5 Encounter for palliative care (principal); C54.1 Malignant neoplasm of endometrium; C78.02 Secondary malignant neoplasm of left lung; R53.83 Other fatigue; M25.50 Pain in unspecified joint; R05.9 Cough, unspecified; G62.9 Polyneuropathy, unspecified; Z90.710 Acquired absence of both cervix and uterus; E03.9 Hypothyroidism, unspecified; R32 Unspecified urinary incontinence; F41.9 Anxiety disorder, unspecified; M81.0 Age-related osteoporosis without current pathological fracture; M19.90 Unspecified osteoarthritis, unspecified site; M35.3 Polymyalgia rheumatica; Z66 Do not resuscitate; R26.2 Difficulty in walking, not elsewhere classified; Z79.899 Other long term (current) drug therapy
CPT/HCPCS: 99215

== ENCOUNTER 2021-05-16 12:30 | Outpatient (CLI) | payer MEDICARE, OTHER | END 2021-05-16 12:31 | disposition EMS.NT | LOC: EMS 12:30 | DX: M54.9 Dorsalgia, unspecified (principal); R05.9 Cough, unspecified ==

== ENCOUNTER 2021-05-16 13:23 | Emergency (ER) | payer MEDICARE, OTHER ==
--- NOTE | 2021-05-16 14:13 | XRAY Report ---
PROCEDURE: Chest 1 View X-Ray INDICATIONS: chest pain TECHNIQUE: One view of the chest was acquired. COMPARISON: CT chest 04/10/2021. FINDINGS: Surgical changes and devices: Right chest wall Port-A-Cath.. Lungs and pleura: No pleural effusions or pneumothorax. Lungs are clear. Elevated left hemidiaphrag m is stable compared to prior CT scan. Mediastinum: Mediastinal contours appear normal. Heart size is normal. Bones and chest wall: No suspicious bony lesions. Overlying soft tissues appear unremarkable. IMPRESSION: No acute cardiopulmonary disease process. Reviewed by: Krysta Fontenot MD, PhD on 05/16/2021 2:12 PM PST Approved by: Krysta Fontenot MD, PhD on 05/16/2021 2:12 PM PST Station ID: [id number]
--- NOTE | 2021-05-16 14:14 | XRAY Report ---
PROCEDURE: Lumbar Spine 2 View INDICATIONS: pain after injury TECHNIQUE: 2 views of the lumbar spine were acquired. COMPARISON: 04/10/2021 CT chest FINDINGS: There are 5 nonrib-bearing lumbar type vertebral bodies. Anterior wedging with height loss T12 is new from 04/10/2021 CT chest. Vertebral body heights otherwise maintained. Degenerative anterolisthesis of L4 on L5 measuring 8 mm. Otherwise normal alignment. No suspicious lytic or blastic osseous lesion . IMPRESSION: Anterior wedge deformity at T12, new from 04/10/2021, and is suspicious for compression fracture. No other fracture identified. Reviewed by: Vijay Amaral MD on 05/16/2021 1:13 PM [facility] Approved by: Vijay Amaral MD on 05/16/2021 1:13 PM [facility] Station ID: [id number]
[2021-05-16] MEDS ORDERED: SODIUM CHLORIDE 0.9% 1,000 ML IV STA (15:12)
--- NOTE | 2021-05-16 15:13 | ED Physician Documentation ---
PD HPI BACK PAIN - Stated complaint Stated Complaint: BACK PAIN - Chief complaint Chief Complaint: Back Pain - History obtained from History obtained from: Patient - History of Present Illness Timing - onset: How many days ago (4) Timing - duration: Days (4) Timing - details: Gradual onset Pain level max: 7 Pain level now: 3 Location: Lower, Right, Left Quality: Pain, Spasm, Similar to prior episodes Associated symptoms: No: Fever, Weakness, Numbness, Incontinent of urine, Unable to urinate, Hematuria, Incontinent of stool Improves with: Rest Worsened by: Movement Contributing factors: Other (states started after coughing.) - Additional information Additional information: Patient has a history of metastatic endometrial adenocarcinoma that has metastasized to the left lung. She has had a chronic dry cough, states was coughing this weekend and developed back pain. States feels like a pulled muscle. Also states she has not been eating and drinking well. She talked to the palliative care nurse, Tracie Vuong who recommended she come here for IV fluids and x-rays. No numbness or tingling. No loss of bowel or bladder control. Review of Systems Ten Systems: 10 systems reviewed and negative Constitutional: denies: Fever, Chills Respiratory: reports: Cough (chronic, unchanged). denies: Dyspnea GI: denies: Abdominal Pain, Nausea, Vomiting, Diarrhea : denies: Dysuria Skin: denies: Rash Neurologic: denies: Headache PD PAST MEDICAL HISTORY - Past Medical History Past Medical History: Yes Cardiovascular: Hypertension Respiratory: Shortness of breath Neuro: Head injury Endocrine/Autoimmune: HyPOthyroidism GI: Hemorrhoids CURTAIN CLEANER: Ovarian cancer, Other : Incontinence, Frequency HEENT: Dental implants Psych: Anxiety, Claustrophobia Musculoskeletal: Osteoarthritis, Osteoporosis, Osteopenia, Other Derm: None - Past Surgical History Past Surgical History: Yes General: Other Ortho: Other /CURTAIN CLEANER: Hysterectomy - Present Medications Home Medications: Ambulatory Orders Medication Instructions Recorded Confirmed Acetaminophen [Tylenol] 1,000 mg PO TID PRN MDD 3000 mmg 08/15/20 05/08/21 combined with t#3 Gabapentin [Gralise] 300 mg PO QPM 08/15/20 05/08/21 Levothyroxine [Synthroid] 112 mcg PO DAILY 08/15/20 05/08/21 Losartan [Cozaar] 100 mg PO DAILY 08/15/20 05/08/21 Metoprolol Succinate [Toprol Xl] 100 mg PO DAILY 08/15/20 05/08/21 Prevagen 1 tab PO DAILY 08/15/20 05/08/21 Ondansetron [Ondansetron Odt] 8 mg PO Q8HR PRN 08/24/20 05/08/21 Acetaminophen/Cod 300/30 [Tylenol 1 tab PO Q4HR PRN MDD 3000 mg all 10/18/20 05/08/21 #3] total apap Amlodipine Besylate [Norvasc] 10 mg PO DAILY 10/18/20 05/08/21 Vitamin B Complex Vit C No.3 [B 1 tab PO DAILY 11/16/20 05/08/21 Complex with Vitamin C] - Allergies Allergies/Adverse Reactions: Allergies Allergy/AdvReac Type Severity Reaction Status Date / Time Sulfa (Sulfonamide Allergy Edema Verified 05/16/21 13:43 Antibiotics) thimerosal Allergy Edema Verified 05/16/21 13:43 oxycodone AdvReac Hallucinati Verified 05/16/21 13:43 ons tramadol AdvReac Anxiety Verified 05/16/21 13:43 - Social History Does the pt smoke?: No Smoking Status: Never smoker Does the pt drink ETOH?: No Does the pt have substance abuse?: No - Immunizations Immunizations are current?: Yes - POLST Patient has POLST: Yes POLST Status: DNR PD ED PE NORMAL - Vitals Vital signs reviewed: Yes - General General: Alert and oriented X 3, No acute distress - HEENT HEENT: Moist mucous membranes - Neck Neck: Supple, no meningeal sign - Cardiac Cardiac: RRR - Respiratory Respiratory: No respiratory distress, Clear bilaterally - Abdomen Abdomen: Soft, Non tender, Non distended - Back Back: Other (mild upper L spine TTP. no step off or deformity. ) - Derm Derm: Warm and dry - Extremities Extremities: No edema - Neuro Neuro: Alert and oriented X 3, No motor deficit, No sensory deficit, Other (Normal bilateral lower extremity patellar and ankle jerk reflexes. Normal great toe extension bilaterally. no saddle anesthesia) - Psych Psych: Normal mood, Normal affect Results - Vitals Vitals: Vital Signs - 24 hr 05/16/21 05/16/21 05/16/21 13:43 15:45 16:00 Temperature 36.4 C L Heart Rate 60 56 L 61 Respiratory 18 Rate Blood Pressure 178/83 H 165/81 H 165/81 H O2 Saturation 99 96 98 Oxygen O2 Source Room air - Labs Labs: Laboratory Tests 05/16/21 05/16/21 15:24 15:24 WBC 9.9 RBC 5.58 H Hgb 15.4 Hct 47.9 H MCV 85.8 MCH 27.6 MCHC 32.2 RDW 14.6 Plt Count 225 MPV 9.2 Neut # (Auto) 8.1 H Lymph # (Auto) 1.1 L [place] # (Auto) 0.5 Eos # (Auto) 0.1 Baso # (Auto) 0.1 Absolute Nucleated RBC 0.00 Nucleated RBC % 0.0 Sodium 134 L Potassium 4.7 Chloride 97 L Carbon Dioxide 26 Anion Gap 11.0 BUN 15 Creatinine 0.7 Estimated GFR (MDRD) 79 L Glucose 101 H Calcium 9.4 Total Bilirubin 0.9 AST 21 ALT 14 Alkaline Phosphatase 57 Total Protein 7.6 Albumin 4.3 Globulin 3.3 Albumin/Globulin Ratio 1.3 Lipase 38 - Rads (name of study) L spine xray Radiology: Final report received, EMP read contemporaneously, See rad report T spine CT Radiology: Final report received, EMP read contemporaneously, See rad report CXR Radiology: Final report received, EMP read contemporaneously, See rad report PD MEDICAL DECISION MAKING - ED course Complexity details: reviewed results, re-evaluated patient, considered dif ferential, d/w patient ED course: 86-year-old female with what appears to be an acute/subacute compression deformity at T12. No retropulsion. Normal neurological exam. Declines pain medication for home. She was also given IV fluids for potential dehydration. Feels better after IV fluids. We will have her follow-up with her doctor for further care. Patient counseled regarding signs and symptoms for which I believe and urgent re-evaluation would be necessary. Patient with good understanding of and agreement to plan and is comfortable going home at this time This document was made in part using voice recognition software. While efforts are made to proofread this document, sound alike and grammatical errors may occur. IMPRESSION: Acute/subacute compression deformity at T12, new compared to prior exam. Given history of previous malignancy, pathologic fracture cannot be definitively excluded and as clinically indicated, MRI may be obtained for additional evaluation. IMPRESSION: No acute cardiopulmonary disease process. IMPRESSION: Anterior wedge deformity at T12, new from 04/10/2021, and is suspicious for compression fracture. No other fracture identified. Departure - Departure Disposition: 01 Home, Self Care Clinical Impression: T12 vertebral fracture Qualifiers: Encounter type: initial encounter Fracture type: closed Fracture morphology: wedge compression Qualified Code(s): S22.080A - Wedge compression fracture of T11-T12 vertebra, initial encounter for closed fracture Condition: Good Instructions: ED Fx Comp Vertebral Follow-Up: ELENO ORTA MD [Primary Care Provider] - Within 1 week Comments: Please follow-up with your doctor as needed for further care. Return if you worsen. You do appear to have a T12 compression fracture, that is likely acute or subacute. You can use Motrin or Tylenol as needed for pain. Discharge Date/Time: 05/16/21 16:35
[2021-05-16 15:36] LABS: BASOPHILS # (AUTO) 0.1 10^3/uL (0.0-0.1); BASOPHILS % (AUTO) 0.8 %; EOSINOPHILS # (AUTO) 0.1 10^3/uL (0.0-0.7); EOSINOPHILS % (AUTO) 0.6 %; HCT - HEMATOCRIT 47.9 % (37.0-47.0); HGB - HEMOGLOBIN 15.4 g/dL (12.0-16.0); LYMPHOCYTES # (AUTO) 1.1 10^3/uL (1.5-3.5); LYMPHOCYTES % (AUTO) 10.7 %; MEAN CORPUSCULAR HEMOGLOBIN 27.6 pg (27.0-31.0); MEAN CORPUSCULAR HGB CONC 32.2 g/dL (32.0-36.0); MEAN CORPUSCULAR VOLUME 85.8 fL (81.0-99.0); MEAN PLATELET VOLUME 9.2 fL (7.9-10.8); MONOCYTES # (AUTO) 0.5 10^3/uL (0.0-1.0); MONOCYTES % (AUTO) 5.4 %; NEUTROPHILS # (AUTO) 8.1 10^3/uL (1.5-6.6); NEUTROPHILS % (AUTO) 81.9 %; PLT - PLATELET COUNT 225 10^3/uL (130-450); RED BLOOD COUNT 5.58 10^6/uL (4.20-5.40); RED CELL DISTRIBUTION WIDTH 14.6 % (12.0-15.0); WHITE BLOOD COUNT 9.9 x10^3/uL (4.8-10.8)
[2021-05-16 15:52] LABS: ALBUMIN 4.3 g/dL (3.2-5.5); ALBUMIN/GLOBULIN RATIO 1.3 (1.0-2.2); BILIRUBIN,TOTAL 0.9 mg/dL (0.2-1.0); CALCIUM 9.4 mg/dL (8.5-10.3); CREATININE 0.7 mg/dL (0.4-1.0); POTASSIUM 4.7 mmol/L (3.5-5.0); TOTAL PROTEIN 7.6 g/dL (6.7-8.2)
[2021-05-16 15:59] VITALS: BP 165/81
--- NOTE | 2021-05-16 16:20 | CT Report ---
PROCEDURE: THORACIC SPINE WO INDICATIONS: T12 compression fracture on xray TECHNIQUE: Noncontrast 3 mm thick sections acquired through the region of interest in the thoracic spine. Sagit desmond and coronal reformats were then constructed. For radiation dose reduction, the following was used : automated exposure control, adjustment of mA and/or kV according to patient size. COMPARISON: CT abdomen pelvis 04/10/2021. FINDINGS: Image quality: Excellent. Bones: There is normal overall bony alignment. There is slight endplate deformity at the level of T1 2 measuring approximately 23%. This is new compared to 04/10/2021. No suspicious sclerotic or lytic b haily lesions. Central spinal canal is of normal overall caliber. Multilevel degenerative disc space narrowing is present. Prominent bridging anterior osteophytes are present. Soft tissues: No paravertebral masses or hematomas. Visualized posteromedial lungs demonstrate stra nding within the left lower lobe suspected to be related to scarring. It is unchanged compared to wendy or exam. IMPRESSION: Acute/subacute compression deformity at T12, new compared to prior exam. Given history of previous ma lignancy, pathologic fracture cannot be definitively excluded and as clinically indicated, MRI may be obtained for additional evaluation. Reviewed by: Erica Keyes MD on 05/16/2021 4:18 PM PST Approved by: Erica Keyes MD on 05/16/2021 4:18 PM PST Station ID: [id number]
[2021-05-16] MEDS ORDERED: ACETAMINOPHEN 325 MG TABLET PO STA (16:24)
== END 2021-05-16 16:35 | disposition home or self-care (01) ==
LOC: ED 13:23
DX: S22.080A Wedge compression fracture of T11-T12 vertebra, initial encounter for closed fracture (principal); M54.50 Low back pain, unspecified; X50.9XXA Other and unspecified overexertion or strenuous movements or postures, initial encounter; C78.02 Secondary malignant neoplasm of left lung; Z85.42 Personal history of malignant neoplasm of other parts of uterus; E86.0 Dehydration; I10 Essential (primary) hypertension; Z66 Do not resuscitate
CPT/HCPCS: 36415; 71045; 72100; 72128; 80053; 83690; 85025; 96361; 96374; 99282; 99284; A9270

== ENCOUNTER 2021-05-18 11:35 | Outpatient (CLI) | payer MEDICARE, OTHER ==
--- NOTE | 2021-05-18 17:56 | CONSULTATION NOTE ---
Palliative Care Follow Up - Referral Referring Provider: Dr. 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 She originally presented with a left hilar mass of 5.1 x 4.9 x 3.0 cm and an mediastinal mass of 6.1 x 4.9 x 3.6 cm. She was treated with carboplatinum/Taxol with Avastin and had done very well with resolution of masses. She is currently now on maintenance Keytruda since 11/2020. She had been doing fairly well up to about 6 weeks ago, where she started developing increased cough, notes that mostly in the a.m. and nighttime at that time, but has become more persistent. It does have a high croupy quality, as well as she has developed hoarseness. In the context of review of her symptoms, this is also concerning as the hoarseness this also was one of her presenting symptoms originally. She was coughing so hard over Thanksgi, that she had a severe episode of back pain, when spoken with her earlier this week, I did send her to the ED as it did sound like a compression fracture. Her CT of her thoracic spine shows A wedge compression fracture of T11-T12 vertebrae. Concern for pathological fracture. Patient is quite thin and has know osteoporosis. Unfortunately patient with her escalating pain, did get behind on her fluids, sh e felt like she was "dying" and was very anxious. She did get some fluids at the ED, she is feeling better. She is currently using baclofen 5 mg at bedtime, and acetaminophen 650 mg every 6 hours with moderate control. With positioning she cannot relief the pressure but still has a fairly high severity with positions and at bedtime. Patient when originally presented, had tolerated opioids poorly, with increased anxiety and pacing. In teasing this out, she had no rash, no nausea or vomiting, we did discuss trialing some low-dose Sabula to see if we could get her some relief with her pain. She continues with her cough, it is nonproductive, her breath sounds are clear, no fine crackles or concerns at this point in time for pneumonitis. Have been original concern with her worsening shortness of breath, though in review is mostly with activity or coughing spasms. She has been using the Tessalon Perles 100 mg 3 times daily with some relief, but her voice is quite quiet and hoarse and has been steadily worsening over the last couple weeks. Patient is always been quite clear in her goals, that they are palliative in nature. We did discuss recommendation of follow-up PET scan, she is somewhat hesitant to add more burden or travel to her [id number] September. Discussed might be helpful to understand underlying etiology of what is going on, will follow up with Dr. Shirley PEDROZA if wants further imaging, as patient is not scheduled till 05/28 for follow-up. Patient is feeling somewhat relieved that her symptoms are better controlled, but is feeling worried with her declining status. Patient has also lost several more pounds, she is quite thin and cachectic but is doing better with her intake overall the last couple days Past Medical History: Grade 1 endometrial carcinoma with hysterectomy 2016, recurrent pain and bleeding 09/2013 with vaginal cuff radiation followed by chemotherapy of carboplatinum/Taxol through April 2014, hip fracture 2017 with repair, hypertension, headaches/migraines, hypothyroidism, mild incontinence, dental implants, anxiety, arthritis, osteoporosis, osteopenia, PMR, Port-A-Cath placement 05/2020 Social History - Living Situation Living arrangement: At home, Other Living Situation: With family Support System: Patient is return back to her own home, she lives in three-story large home but they do have her set up on one floor. She is attended to and cared for by her [id number] September who is a of her son who of Parkinson's. She does have a daughter but is estranged from her. She reports they are doing very well together, they have a little dog sassy who is of much support for her. She does have large community of friends that care for her immensely. Medications/Allergies - Medications Home Medications: Ambulatory Orders Medication Instructions Recorded Confirmed Acetaminophen [Tylenol] 1,000 mg PO TID PRN MDD 3000 mmg 08/15/20 05/18/21 combined with norco Gabapentin [Gralise] 600 mg PO QPM 08/15/20 05/18/21 Levothyroxine [Synthroid] 112 mcg PO DAILY 08/15/20 05/18/21 Losartan [Cozaar] 100 mg PO DAILY 08/15/20 05/18/21 Metoprolol Succinate [Toprol Xl] 100 mg PO DAILY 08/15/20 05/18/21 Prevagen 1 tab PO DAILY 08/15/20 05/18/21 Ondansetron [Ondansetron Odt] 4 mg PO Q6HR PRN 08/24/20 05/18/21 Amlodipine Besylate [Norvasc] 10 mg PO DAILY 10/18/20 05/18/21 Vitamin B Complex Vit C No.3 [B 1 tab PO DAILY 11/16/20 05/18/21 Complex with Vitamin C] Baclofen 5 - 10 mg PO TID PRN 05/18/21 05/18/21 Benzonatate [Tessalon] 100 mg PO TID PRN 05/18/21 05/18/21 HYDROcod/ACETAM 5/325 [Sabula 5/325] 1 tab PO Q4HR PRN 05/18/21 05/18/21 - Allergies Allergies/Adverse Reactions: Allergies Allergy/AdvReac Type Severity Reaction Status Date / Time Sulfa (Sulfonamide Allergy Edema Verified 05/16/21 13:43 Antibiotics) thimerosal Allergy Edema Verified 05/16/21 13:43 oxycodone AdvReac Hallucinati Verified 05/16/21 13:43 ons tramadol AdvReac Anxiety Verified 05/16/21 13:43 Review of Systems - Constitutional Constitutional: reports: Fatigue (significantly worse two weeks; difficulty sleeping though better last night), Weakness (some functional decline), Weight loss (last known weight 113 ; feels probably lost a few more pounds over this last week; appears cachetic.). denies: Fever, Chills - Eyes Eyes: reports: Blurred vision (did get new RX for glasses; hoping will help with headached), Vision loss, Corrective lenses - Ears, Nose & Throat Ears, Nose & Throat: reports: Hearing loss, Hearing aids. denies: Mouth lesions (candidiasis resolved), Dental pain - Cardiovascular Cardiovascular: reports: Lightheadedness, Exertional dyspnea, Decr. exercise tolerance. denies: Edema - Respiratory Respiratory: reports: Cough ( dry; has been increasing in frequency and severity over last few weeks; worsened over last week with severe coughing spasms triggering compression fx; currently managed with tessalon pearls better but noted with laying down worse), SOB with exertion. denies: SOB at rest - Gastrointestinal Gastrointestinal: reports: Poor appetite, Other (better with fluids). denies: Constipation, Diarrhea, Nausea - Genitourinary Genitourinary: reports: Incontinence (intermittent) - Musculoskeletal Musculoskeletal: reports: Back pain, Stiffness, Muscle weakness, Assistive devices (using walker for outside walking only) - Integumentary Integumentary: reports: Dryness, Hair changes (hair starting to grow in) - Neurological Neurological: reports: General weakness, Numbness (peripheral neuropathy numbness hands and feet worsened with treatment; remains persistent no pain; balance issues most problematic), Memory problems (continues with short term memory issues; frustrating to her), Abnormal gait - Psychiatric Psychiatric: reports: Anxiety - Endocrine Endocrine: reports: Hypothyroidism - Hematologic/Lymphatic Hematologic/Lymph: denies: Anemia - All Other Systems All Other Systems: reports: Reviewed and negative Physical Exam - Vital Signs Temperature: 97.2 C Pulse Rate: 74 Respiratory Rate: 18 O2 Saturation: 97 Blood Pressure: 130/72 - Physical Exam General Appearance: positive: No acute distress, Alert, Anxious (feels like she is getting worse; worried about her decline) Eyes Bilateral: positive: Normal inspection ENT: negative: Oral lesions Neck: positive: Trachea midline. negative: Lymphadenopathy (R), Lymphadenopathy (L) Cardiovascular: positive: Irregularly irregular Respiratory: positive: Diminished in bases (left greater than right). negative: No respiratory distress (SOB with coughing spasms and effort) Abdomen: positive: Non-tender, Soft Skin: positive: Pallor, Dryness Extremities: positive: No pedal edema Neurologic/Psychiatric: positive: Oriented x3, Weakness Palliative Care - POLST Patient has POLST: Yes POLST Status: DNR, Selective Treatment Pain: Pain improved, Location (mid thoracic region see HPI) Tiredness/Fatigue: Moderate (4-6) Drowsiness/Sedation: Moderate (4-6) Nausea: None Anorexia: Moderate (4-6) Dyspnea: Moderate (4-6) Depression: Mild (1-3) Anxiety: Severe (7-10) Feelings of wellbeing/Perceived Quality of Life: Fair, Worsening Sleep: Variable sleep pattern (awakened with pain) Constipation: No Performance Status: Patient's functional status has been impacted by her pain, plus continued weight loss and weakness. She is ambulatory, able to attend her ADLs. She is getting support from her [id number], for meal prep and supervision for safety. - Palliative Care Discussion: Patient shared outside of September, secondary to just concern for being a burden and adding anxiety, she thought she was dying. We discussed we do not really understand the underlying etiology, currently would be helpful to have that information to move forward with her planning. She is very much focused on being grateful for the time she has had as far as quality and her relationship with her [id number] and friends. She would not want to do anything to prolong her suffering, and would weigh benefits and burdens of further treatment in the context of this. She is very anxious and is "a worrier", but does share she is not afraid of dying, her goal would be to have a comfortable respectful at home. Spoke with Priscilla, she is very concerned about patient's decline, we did discuss in the context of her most recent trip to the ED, would recommend changing the DPOA for medical decision making to Priscilla versus her sister. Provided short form for this. We will continue to monitor and provide anticipatory guidance.Reviewed the role of the POLST, instructed put on front of fridge as this is where the paramedics will look for it. We also talked about lift assist for getting her in and out of the house if she has any further appointments. Impression and Recommendations - Palliative Care Impression: This is a em 86-year-old woman with recurrent endometrial adenocarcinoma with known left lung mets, mediastinal mets with good response to her treatment. She was getting maintenance Keytruda, but now is presented with increased symptoms of cough, hoarseness, and resulting in a T12 compression fracture. Patient remains quite frail with advanced age, cachectic, decline in functional status, and concerns regarding most recent symptoms. Palliative care providing support for pain and symptom management and anticipatory guidance. Recommendations/Counseling Done: 1. Compression fracture T12. Patient presents with acute pain secondary to compression fracture, has had some relief with baclofen 5 mg at bedtime, and acetaminophen 650 mg every 6 hours while awake. Patient does get some relief with positioning, is still having some acute episodes particularly with coughing. Discussed patient's previous experience with opioids, willing to trial some hydrocodone 5 mg / 325 mg given the context of her last experience with this was when she had severe tumor compression. She also reports had severe anxiety, side effects had been pacing and agitation. We will go ahead and trial one half tab, instructed to try this in the a.m. when can be observed and if tolerated, can go to a full tab every 4 hours as needed for pain. This also may help with cough. Patient has tolerated higher doses of gabapentin in the past for pain management, will go ahead and increase gabapentin 600 mg at bedtime, secondary to patient's most intense pain at night with laying down and movement. 2. Hoarseness. Patient denies any trouble with swallowing, any pain or inflammation. On examination, patient can swallow without difficulty, no signs or symptoms of candidiasis. Patient reports hoarseness was one of her presenting symptoms originally, and improved with response to treatment. Will follow up with oncology, regarding recommendations of PET scan for follow-up. 3. Dehydration. Patient has had decreased intake over the last several days, she is doing better today. Priscilla her [id number], is encouraging her, counseling provided regarding strategies to increase calories with small frequent feedings, patient dislikes sweet supplements, reviewed use of cream to soups, soft eggs, and more snacking. 4. Metastatic endometrial CA. Patient continues to weigh options for treatment in the context of her palliative goals, she has gotten a good remission, concerning regarding underlying etiology of her current symptoms. We will continue to follow along with oncology. 5. Advanced care planning. Discussed changing DPOA to September given her most recent experience in ED, patient remains quite focused on weighing her decisions in the context of quality not quantity of life. Patient does have POLST in place with DN AR/DNI and selective treatments. Patient would like at end-of-life to have a at home, both she and September have had experiences with hospice. We will continue to follow and provide anticipatory guidance 60 minutes with greater than 50% of this done in counseling regarding pain and symptom management, anticipatory guidance, revisiting goals of care, and coordination of care with oncology team
== END 2021-05-18 11:36 | disposition home or self-care (01) ==
LOC: PC 11:35
PROVIDERS: ATTEND Nurse Practitioner Adult Health
DX: Z51.5 Encounter for palliative care (principal); C54.1 Malignant neoplasm of endometrium; C78.02 Secondary malignant neoplasm of left lung; M48.54XD Collapsed vertebra, not elsewhere classified, thoracic region, subsequent encounter for fracture with routine healing; R49.0 Dysphonia; E86.0 Dehydration; Z66 Do not resuscitate; F41.9 Anxiety disorder, unspecified
CPT/HCPCS: 99350